=== PATIENT | male | born 1945 | race Caucasian/White ===

== ENCOUNTER → 2022-03-15 | Outpatient (REF) | payer MEDICARE, MEDICAID, SELFPAY ==
[2022-03-15 09:30] LABS: Hemoglobin A1c 4.8 % (3.8-5.6)
== END ==
LOC: OLS.SW 05:00
PROVIDERS: Visit Provider Internal Medicine
DX: E11.9 Type 2 diabetes mellitus without complications (principal)
CPT/HCPCS: 36415; 83036

== ENCOUNTER → 2022-03-20 | Outpatient (REF) | payer MEDICARE, MEDICAID, SELFPAY ==
[2022-03-20 10:23] LABS: Absolute Lymphocyte Count 1.12 X10^3/uL (0.83-4.51); Absolute Neutrophil Count 7.2 X10^3/uL (2.0-7.7); Basophil# 0.04 X10^3/uL; Basophil% 0.5 % (0-1); Eosinophil# 0.09 X10^3/uL; Hematocrit 32.3 % (40-54); Hemoglobin 10.8 g/dL (13.0-16.5); Lymphocyte # 1.12 X10^3/ul (0.83-4.51); Lymphocyte % 12.6 % (19-41); Mean Corp Hgb Conc 33.4 g/dL (32-36); Mean Corpuscular Hgb 31.3 pg (27.0-32.0); Mean Corpuscular Volume 93.6 fL (80-94); Mean Platelet Vol. 9.9 fl (6.2-12.0); Monocyte# 0.42 X10^3/uL; Monocyte% 4.7 % (0-10); NRBC Flagged by Analyzer 0 % (0-5); Neutrophil # 7.17 X10^3/uL (2.7-7.7); Neutrophil % 80.9 % (47-70); Platelet Count 158 K/mm3 (150-450); RBC Distribution Width CV 15.6 % (11.6-14.6); RBC Distribution Width SD 53.8 fl (35.1-43.9); Red Blood Count 3.45 M/mm3 (4.6-6.2); White Blood Count 8.9 K/mm3 (4.4-11.0)
[2022-03-20 11:07] LABS: Albumin, Serum 2.4 g/dL (3.2-5.0); BUN 38 mg/dL (7-18); BUN/Creat Ratio 4.9 RATIO (10-20); Calcium,Total 9.5 mg/dL (8.5-10.1); Chloride 97 mmol/L (98-107); Creatinine, Serum 7.78 mg/dL (0.70-1.30); EST Glomerular Filtration Rate 7 mL/min (>60); Glucose 80 mg/dL (74-106); Phosphorus 2.2 mg/dL (2.5-4.9); Potassium 2.8 mmol/L (3.5-5.1); Sodium Level 139 mmol/L (136-145)
[2022-03-20 11:08] LABS: Est Glom Filt Rate - Afr Amer 9 mL/min (>60)
== END ==
LOC: OLS.SW 05:00
PROVIDERS: Visit Provider Internal Medicine
DX: E11.22 Type 2 diabetes mellitus with diabetic chronic kidney disease (principal); N18.6 End stage renal disease
CPT/HCPCS: 36415; 80069; 85025

== ENCOUNTER → 2022-04-10 | Outpatient (REF) | payer MEDICARE, MEDICAID, SELFPAY ==
[2022-04-10 09:46] LABS: Anion Gap 17 (5-15); BUN 58 mg/dL (7-18); BUN/Creat Ratio 6.8 RATIO (10-20); Calcium,Total 9.7 mg/dL (8.5-10.1); Chloride 97 mmol/L (98-107); EST Glomerular Filtration Rate 7 mL/min (>60); Est Glom Filt Rate - Afr Amer 8 mL/min (>60); Glucose 73 mg/dL (74-106); Potassium 3.5 mmol/L (3.5-5.1); Prealbumin 18.7 mg/dL (20.0-40.0); Sodium Level 139 mmol/L (136-145)
[2022-04-10 09:53] LABS: Absolute Neutrophil Count 6.6 X10^3/uL (2.0-7.7); Basophil# 0.05 X10^3/uL; Basophil% 0.6 % (0-1); Eosinophil# 0.12 X10^3/uL; Eosinophils% 1.4 % (0-5); Hemoglobin 11.9 g/dL (13.0-16.5); Lymphocyte % 14.9 % (19-41); Mean Corp Hgb Conc 33.1 g/dL (32-36); Mean Corpuscular Hgb 30.9 pg (27.0-32.0); Mean Corpuscular Volume 93.5 fL (80-94); Mean Platelet Vol. 9.8 fl (6.2-12.0); Monocyte# 0.65 X10^3/uL; Monocyte% 7.4 % (0-10); NRBC Flagged by Analyzer 0 % (0-5); Neutrophil # 6.57 X10^3/uL (2.7-7.7); Neutrophil % 75.2 % (47-70); Platelet Count 174 K/mm3 (150-450); RBC Distribution Width CV 16.6 % (11.6-14.6); Red Blood Count 3.85 M/mm3 (4.6-6.2); White Blood Count 8.7 K/mm3 (4.4-11.0)
== END ==
LOC: OLS.SW 05:00
PROVIDERS: Visit Provider Internal Medicine
DX: L89.95 Pressure ulcer of unspecified site, unstageable (principal); R63.8 Other symptoms and signs concerning food and fluid intake; Z79.899 Other long term (current) drug therapy
CPT/HCPCS: 36415; 80048; 84134; 85025; 86140

== ENCOUNTER 2022-04-27 10:57 | Emergency (ER) | payer MEDICARE, MEDICAID, SELFPAY ==
[2022-04-27] VITALS (13 sets, daily range): BP systolic 83–168; BP diastolic 58–122; PULSE 90–102; RESP 16–24; TEMP 36.1–36.6; O2SAT 94–98; BMI 25.0
--- NOTE | 2022-04-27 11:34 | RAD_ITS ---
STUDY: X-RAY - PELVIS AND LEFT HIP REASON FOR EXAM: Male, 76 years old. pain TECHNIQUE: One view of the pelvis was obtained. COMPARISON: None. FINDINGS: There is a non-specific bowel gas pattern. Normal visualized soft tissue structures. Normal bilateral iliac wings, sacroiliac joints and visualized sacrum. Normal visualized bilateral superior and inferior pubic rami. Normal pubic symphysis. Normal ischial tuberosities. Normal visualized right femoral head. There is osteoarthritic spur formation of the right acetabular rim. There is moderate articular joint space narrowing of the right hip. Normal visualized left femoral head. There is osteoarthritic spur formation of the left acetabular rim. There is moderate articular joint space narrowing of the left hip. There are no visualized fractures of the pelvis or hips. RAD/HIP, UNI W/ Pelvis 2-3 Views IMPRESSION: Moderate bilateral hip DJD Electronically Signed: Preston Vicente MD at 13:20 EST ,
--- NOTE | 2022-04-27 11:37 | CM.ED ---
Addendum entered by My Jang 04/27/22 11:58: Per Sarah at [facility] patient's dialysis is M,W, F. She also reported that there is no date for emergency guardianship hearing at this time. My ALEGRIA Original Note: JAI called Sarah at [facility]. Sarah said that patient is not able to sign his own consent so they have filed for emergency guardianship for the patient. Sarah said that they are waiting for a court date. Sarah said that patient is a full code and they are providing patient with comfort care. Sarah said that they are working with their in home hospice, [facility], but as patient cannot sign the paperwork for hospice they have to wait till guardianship is received for patient. Sarah said that patient has no relatives except his sister, who has autism. Patient and his sister are from [facility]. JAI called [facility] and spoke to Sherri, patient's RN. Sherri said that by no means is patient alert or oriented but he has been more than he currently is. Sherri said that patient used to answer yes and no questions. Patient is only alert to self. Delusions are normal. Patient used to be able to follow simple commands. Sherri said that patient is not competent and thus they filed for emergency guardianship. Patient is a full code. Patient has been at [facility] since the fall 2021, so approximately 6 months. My ALEGRIA
--- NOTE | 2022-04-27 11:43 | EX.ED.DYSGE1 ---
HPI History of Present Illness Chief Complaint: Weakness Informant: EMS and SNF Narrative Narrative: Patient is a 76-year-old male presenting from extended care facility for generalized decline and concern the patient will require hospice. Patient has Parkinson's disease and is ANO times self at baseline. His only family member is a sister that has autism. The nursing facility is currently trying to get a court order for emergency custody to be can be evaluated for bernie. In the meantime he has had a generalized decline and was brought to the emergency room. Patient is complaining of some left-sided hip pain and does have a chronic wound on his left buttocks. He is really not able to tell me anything else besides he wants some water. Nursing staff reports that he is oriented to self only and has baseline delusions. He used to be able to follow some commands and answer things yes and no but this is worsened. Apparently patient is also on hemodialysis. Is not clear when his last dialysis it was at this point. 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 Unspecified protein-calorie malnutrition Unsteadiness on feet Home Medications acetaminophen 500 mg tablet (Acetaminophen Extra Strength) 1,000 mg PO MOWEFR DISCOMFORT PRIOR TO DIALYSIS 04/27/22 [History Last Taken 04/26/22] amino acids-protein hydrolysate 17 gram-100 kcal/30 mL oral liquid (Pro-Stat AWC) 30 ml PO BID SUPPLEMENT/WOUND CARE 04/27/22 [History Last Taken 04/27/22] ascorbic acid (vitamin C) 500 mg tablet 500 mg PO DAILY SUPPLEMENT 04/27/22 [History Last Taken 04/27/22] aspirin 325 mg tablet 325 mg PO MOWEFR [facility] 04/27/22 [History Last Taken 04/26/22] aspirin 81 mg tablet,delayed release 81 mg PO [facility] 04/27/22 [History Last Taken 04/27/22] atorvastatin 40 mg tablet 40 mg PO QHS CHOLESTEROL 04/27/22 [History Last Taken 04/26/22] cholecalciferol (vitamin D3) 50 mcg (2,000 unit) tablet (Vitamin D3) 50 mcg PO DAILY SUPPLEMENT 04/27/22 [History Last Taken 04/27/22] doxepin 50 mg capsule 50 mg PO QHS DEPRESSION 04/27/22 [History Last Taken 04/26/22] ferrous sulfate 325 mg (65 mg iron) tablet 325 mg PO DAILY SUPPLEMENT 04/27/22 [History Last Taken 04/27/22] insulin lispro 100 unit/mL subcutaneous solution (Humalog U-100 Insulin) See Protocol subcut TIDCM DIABETES 04/27/22 [History Last Taken 04/27/22] isosorbide mononitrate 30 mg tablet,extended release 24 hr 30 mg PO DAILY HEART 04/27/22 [History Last Taken 04/27/22] magnesium hydroxide 400 mg/5 mL oral suspension (Milk of Magnesia) 30 ml PO DAILY PRN Constipation 04/27/22 [History Last Taken Unknown] midodrine 10 mg tablet 10 mg PO MOWEFR DIALYSIS 04/27/22 [History Last Taken 04/26/22] midodrine 10 mg tablet 15 mg PO DAILY PRN DIALYSIS 04/27/22 [History Last Taken Unknown] mirtazapine 7.5 mg tablet 7.5 mg PO QHS APPETITE 04/27/22 [History Last Taken 04/26/22] nitroglycerin 0.4 mg sublingual tablet 0.4 mg sublingual Q5M PRN Chest Pain 04/27/22 [History Last Taken Unknown] omeprazole 20 mg capsule,delayed release 20 mg PO DAILY ACID REFLUX 04/27/22 [History Last Taken 04/27/22] oxybutynin chloride 5 mg tablet 5 mg PO BID OVERACTIVE BLADDER 04/27/22 [History Last Taken 04/27/22] potassium chloride 20 mEq tablet,extended release(part/cryst) 20 meq PO DAILY SUPPLEMENT 04/27/22 [History Last Taken 04/27/22] pramipexole 0.5 mg tablet 0.5 mg PO TID MUSCLE SPASMS 04/27/22 [History Last Taken 04/27/22] quetiapine 25 mg tablet 25 mg PO DAILY HALLUCINATIONS 04/27/22 [History Last Taken 04/27/22] quetiapine 50 mg tablet 50 mg PO QHS HALLUCINATIONS 04/27/22 [History Last Taken 04/26/22] sertraline 100 mg tablet 200 mg PO DAILY DEPRESSION 04/27/22 [History Last Taken 04/27/22] sodium hypochlorite 0.25 % solution (Dakin's Solution) 1 applic topical QHS WOUND 04/27/22 [History Last Taken 04/26/22] vitamin B complex and vitamin C no.20-folic acid 1 mg capsule (Triphrocaps) 1 cap PO LUNCH ESRD, TAKE AFTER DIALYSIS 04/27/22 [History Last Taken 04/27/22] Allergy/AdvReac Type Severity Reaction Status Date / Time amlodipine [From [facility]] Allergy PT UNSURE Verified 04/27/22 10:59 OF REACTION codeine Allergy PT UNSURE Verified 04/27/22 10:59 OF REACTION gemfibrozil Allergy PT UNSURE Verified 04/27/22 10:59 OF REACTION nifedipine Allergy PT UNSURE Verified 04/27/22 10:59 OF REACTION Social History Smoking Status: Unknown if ever smoked ROS ROS ED Review of Systems ROS Unobtainable: due to mental status EXAM Physical Exam Const Vital Signs: 04/27/22 10:59 04/27/22 11:15 04/27/22 13:11 Temperature 97.0 F L Temperature Source Temporal Pulse Rate 99 Respiratory Rate 24 H 16 Respiratory Pattern Normal Blood Pressure 168/122 H 88/58 L Blood Pressure Mean 137 68 Pulse Ox 95 95 Oxygen Delivery Method Room Air Room Air 04/27/22 13:13 04/27/22 14:02 04/27/22 14:18 Temperature 98 F 98 F Temperature Source Temporal Temporal Pulse Rate 90 102 H 101 H Respiratory Rate 20 H 18 18 Respiratory Pattern Blood Pressure 83/58 L 98/65 102/67 Blood Pressure Mean 66 76 78 Pulse Ox 94 95 96 Oxygen Delivery Method Room Air Room Air 04/27/22 14:33 04/27/22 14:48 04/27/22 15:03 Temperature 98 F 98 F 98 F Temperature Source Temporal Temporal Temporal Pulse Rate 101 H 98 99 Respiratory Rate 20 H 20 H 18 Respiratory Pattern Blood Pressure 104/70 95/73 95/65 Blood Pressure Mean 81 80 75 Pulse Ox 96 97 98 Oxygen Delivery Method Room Air Positive unkempt Constitutional Narrative: Chronically ill-appearing General Appearance ED: unkempt and pallor HEENT Reports dry mucous membranes Negative for trauma Mouth ED: Yes dry mucous membranes Mouth: dry mucous membranes Eyes PERRL Neck supple and no JVD Chest Wall inspection of chest normal and palpation of chest normal Resp normal respiratory effort and clear to auscultation bilaterally Cardio regular rate and regular rhythm GI normal to inspection, nondistended, normoactive bowel sounds Extremity Extremity Narrative: Contractures of the lower extremities AV fistula in the left forearm with palpable thrill Neuro Neuro Narrative: Somnolent but arouses when he walked in the room. Generally weak. Oriented to self only. Sensorium / Orientation: alert Psych Appearance: unkempt Skin Skin Narrative: Chronic sacral decubitus wound. It is covered in stool. General Skin Exam: pallor Sepsis Attestation Sepsis Alert: Yes Sepsis Attestation: Sepsis Ruled Out Date exam was performed: 04/27/22 Time exam was performed: 14:43 Supportive Findings: Patient is dehydrated likely which is what is causing his lactic acidosis and hypotension. No obvious source of infection. MDM MDM MDM Narrative Medical decision making narrative: Patient is evaluated for generalized decline and low blood pressures. Patient is confused which appears to be his baseline. He is tachycardic and clinically appears quite dehydrated Differential includes electrolyte abnormality, dehydration, sepsis and generalized debility. Case is discussed with social work. Patient's facility, [facility], is attempting to get legal control so patient can be changed from full code to hospice as they feel that is what is medically appropriate however there is delay in this. Septic work-up is initiated as patient was reported to have low blood pressures initially he is hypertensive. He is tachycardic. He has a normal white blood cell counts and a mild anemia the hemoglobin 11.6. He has elevated BUN and creatinine which is consistent with his history of end-stage renal disease. He is mildly hypokalemic with potassium of 3.0 however given that he is end-stage renal disease on hemodialysis I will not replace at this time. His lactate is elevated for 2.5 however I suspect this is from dehydration. Case is discussed with admitting physician, Dr. Nova who evaluates the patient. She agrees that he is dehydrated. Patient was initially just given a 250 cc bolus as he did start to become hypotensive. He was fluid responsive with this. She requested he be given additional 750 cc of fluid. She also spoke with the patient's primary care doctor, Dr. Harrison, who is aware that they can do IV fluids at facility. She spoke with Dr. Sexton, his subsorter who is a comfortable with giving the patient a second liter bolus. They will work on adjusting his dry weight. Blood cultures are pending but there is no obvious source of infection at this time. He has a chronic wound but is not look infected. He does not have a leukocytosis or fever. Plan is to increase patient's hydration as he is not taking much by mouth at facility and he will be discharged back with IV in place. In addition they will continue to work on obtaining legal guardianship of the patient in order to make him hospice. As patient does not have an acute electrolyte abnormality, is fluid responsive he does not require acute hospitalization. Patient will have dialysis tomorrow. Should he develop acute hypoxia, fever or other acute symptoms he will be brought back to the emergency room at that time. Lab Data Attestation: I reviewed the patient's lab results. Labs: Laboratory Results - last 24 hr 04/27/22 04/27/22 04/27/22 12:05 12:05 12:05 WBC 7.7 RBC 3.78 L Hgb 11.6 L Hct 35.3 L MCV 93.4 MCH 30.7 MCHC 32.9 RDW Std Deviation 55.6 H RDW Coeff of Mallorie 16.1 H Plt Count 140 L MPV 9.5 Immature Gran % (Auto) 0.600 Neut % (Auto) 87.6 H Lymph % (Auto) 5.3 L Nolan % (Auto) 6.3 Eos % (Auto) 0.1 Baso % (Auto) 0.1 Absolute Neuts (auto) 6.8 Absolute Lymphs (auto) 0.41 L Nucleated RBC % 0 Differential Comment COMMENT Sodium 137 Potassium 3.0 L Chloride 95 L Carbon Dioxide 32.0 Anion Gap 10 BUN 35 H Creatinine 5.04 H Estim Creat Clear Calc 13.90 Est GFR (MDRD) Af Amer 15 L Est GFR (MDRD) Non-Af 12 L BUN/Creatinine Ratio 6.9 L Glucose 140 H Lactic Acid 2.5 H* Calcium 9.4 Total Bilirubin 1.10 H AST 79 H ALT 59 Alkaline Phosphatase 133 H Total Protein 6.0 L Albumin 1.6 L Globulin 4.4 H Albumin/Globulin Ratio 0.4 L Radiography Chest X-Ray - ED: 1 View, Read by ED Physician and Chronic Changes Diagnostic Testing: Clinical Impression(s) from Imaging Studies Hip/Pelvis X-Ray 04/27/22 11:34 IMPRESSION: Moderate bilateral hip DJD Electronically Signed: Preston Vicente MD at 13:20 EST Reading Location ID and State: [address] [place] [address] , Service support , Rhythm Strip Rhythm Strip: Sinus Tach Rate: 108 Ectopy: None EKG Initial EKG: Attestation: I personally reviewed and interpreted this EKG as follows: Interpretation: Sinus Tachycardia Comments: Sinus tachycardia at a rate of 108 bpm Normal axis normal intervals Nonspecific T wave changes Significant baseline artifact present Discharge Plan Triage Chief Complaint: Weakness ED Provider: Luna Harmon Dx/Rx/DC Orders Clinical Impression: Acute dehydration, Debility, Adult failure to thrive Instructions: ED Dehydration (Adult), ED Weakness (Uncertain Cause) Prescriptions: No Action quetiapine 25 mg tablet 25 mg PO DAILY atorvastatin 40 mg tablet 40 mg PO QHS doxepin 50 mg capsule 50 mg PO QHS aspirin 325 mg Tablet 325 mg PO MOWEFR isosorbide mononitrate 30 mg tablet extended release 24 hr 30 mg PO DAILY sertraline 100 mg tablet 200 mg PO DAILY aspirin [Aspirin Low-Strength] 81 mg Tablet,Delayed Release (Dr/Ec) 81 mg PO [facility] acetaminophen [Acetaminophen Extra Strength] 500 mg Tablet 1,000 mg PO MOWEFR pramipexole 0.5 mg tablet 0.5 mg PO TID potassium chloride 20 mEq tablet,ER particles/crystals 20 meq PO DAILY magnesium hydroxide [Milk of Magnesia] 400 mg/5 mL Suspension 30 ml PO DAILY PRN (Reason: Constipation) ascorbic acid (vitamin C) 500 mg Tablet 500 mg PO DAILY ferrous sulfate 325 mg (65 mg iron) Tablet 325 mg PO DAILY nitroglycerin 0.4 mg Tablet, Sublingual 0.4 mg SUBLINGUAL Q5M PRN (Reason: Chest Pain) omeprazole 20 mg capsule,delayed release(DR/EC) 20 mg PO DAILY insulin lispro [Humalog U-100 Insulin] 100 unit/mL Solution See Protocol subcut TIDCM Protocol: 6. Sliding Scale Insulin Custom Condition: mg/dl range Dose/Route: Number of Units Condition: 180-200 Dose/Route: 2 Condition: 201-250 Dose/Route: 3 Condition: 251-300 Dose/Route: 4 Condition: 301-350 Dose/Route: 5 Condition: 351-400 Dose/Route: 6 Condition: 401-450 Dose/Route: 7 Condition: 450> Instruction: CALL DOCTOR Protocol Text: Custom Sliding Scale Triphrocaps 1 mg Capsule 1 cap PO LUNCH oxybutynin chloride 5 mg tablet 5 mg PO BID Dakin's Solution 0.25 % Solution 1 applic TOPICAL QHS midodrine 10 mg Tablet 10 mg PO MOWEFR midodrine 10 mg Tablet 15 mg PO DAILY PRN (Reason: DIALYSIS) mirtazapine 7.5 mg tablet 7.5 mg PO QHS quetiapine 50 mg tablet 50 mg PO QHS cholecalciferol (vitamin D3) [Vitamin D3] 50 mcg (2,000 unit) Tablet 50 mcg PO DAILY Pro-Stat AWC 17-100 gram-kcal/30 mL Liquid 30 ml PO BID Primary Care Provider: Linda Harrison Referrals: NOT,DEFINED [Non-Staff] - Activity Restrictions/Additional Instructions: Iam was discharged with IV in place to be can receive further IV fluids as needed. Disposition Disposition: [facility] Facility Discharge Location: [facility]
[2022-04-27] MEDS: fentaNYL 100 MCG/2 ML Ampul 25 MCG IV (12:15)
[2022-04-27 12:22] LABS: Absolute Lymphocyte Count 0.41 X10^3/uL (0.83-4.51); Absolute Neutrophil Count 6.8 X10^3/uL (2.0-7.7); Basophil# 0.01 X10^3/uL; Basophil% 0.1 % (0-1); Eosinophil# 0.01 X10^3/uL; Eosinophils% 0.1 % (0-5); Hematocrit 35.3 % (40-54); Hemoglobin 11.6 g/dL (13.0-16.5); Lymphocyte # 0.41 X10^3/ul (0.83-4.51); Lymphocyte % 5.3 % (19-41); Mean Corp Hgb Conc 32.9 g/dL (32-36); Mean Corpuscular Hgb 30.7 pg (27.0-32.0); Mean Corpuscular Volume 93.4 fL (80-94); Mean Platelet Vol. 9.5 fl (6.2-12.0); Monocyte# 0.49 X10^3/uL; Monocyte% 6.3 % (0-10); NRBC Flagged by Analyzer 0 % (0-5); Neutrophil # 6.75 X10^3/uL (2.7-7.7); Neutrophil % 87.6 % (47-70); POSITIVE DIFFERENTIAL YES; POSITIVE MORPHOLOGY YES; Platelet Count 140 K/mm3 (150-450); RBC Distribution Width CV 16.1 % (11.6-14.6); RBC Distribution Width SD 55.6 fl (35.1-43.9); Red Blood Count 3.78 M/mm3 (4.6-6.2); White Blood Count 7.7 K/mm3 (4.4-11.0)
[2022-04-27 12:25] LABS: Differential Indicated SCAN CRITERIA MET
[2022-04-27 12:39] LABS: ALB/GLOB Ratio 0.4 RATIO (0.9-2.4); AST(SGOT) 79 U/L (15-37); Alanine Aminotransfer ALT/SGPT 59 U/L (16-61); Albumin, Serum 1.6 g/dL (3.2-5.0); Alkaline Phosphatase 133 U/L (45-117); Anion Gap 10 (5-15); BUN 35 mg/dL (7-18); BUN/Creat Ratio 6.9 RATIO (10-20); Calcium,Total 9.4 mg/dL (8.5-10.1); Chloride 95 mmol/L (98-107); Creatinine, Serum 5.04 mg/dL (0.70-1.30); EST Glomerular Filtration Rate 12 mL/min (>60); Est Glom Filt Rate - Afr Amer 15 mL/min (>60); Globulin 4.4 g/dL (2.2-4.2); Glucose 140 mg/dL (74-106); Sodium Level 137 mmol/L (136-145)
--- NOTE | 2022-04-27 12:40 | RAD_ITS ---
STUDY: X-RAY CHEST REASON FOR EXAM: Male, 76 years old. Weakness TECHNIQUE: Single AP portable view of the chest. COMPARISON: Comparison is made with prior examination dated 04/29/2022. FINDINGS: An endotracheal tube is in situ. The tip is at 5.1 sinus proximal to luis enrique. Nasogastric tube is seen with the tip in the body of the stomach. A left-sided internal jugular venous catheter has been placed. The tip is at the junction of the left brachiocephalic vein and inferior vena cava. A right-sided central line is placed with the tip in the right atrium. These are unchanged. Persistent infiltrates in both upper lobes worse on the right side. Patchy infiltrate in the right lower lobe. Improved aeration at the left lung base. Blunting of the right costophrenic angle. Normal size heart. Normal mediastinum and kelli. Normal visualized pulmonary arteries. There is atherosclerotic tortuosity of the aortic arch and descending thoracic aorta. There are diffuse degenerative changes of the visualized thoracic spine. Normal visualized ribs, clavicles, and shoulders. There is no demonstrated abnormality of the visualized soft tissue structures of the upper abdomen. RAD/Chest 1 View (Portable) IMPRESSION: The tip of the endotracheal tube is at 5.1 cm proximal to the luis enrique. The tip of the nasogastric tube is in the body of the stomach. Persistent infiltrates in both upper lobes worse on the right side with patchy right basilar infiltrate. Electronically Signed: Jace Crawford MD at 8:43 EST ,
--- NOTE | 2022-04-27 13:18 | ED.RN ---
ED PHYSICIAN AWARE OF SEPSIS ALERT. PT NOT A CANDIDATE FOR FLUID RESUSCITATION BASED ON DIALYSIS
[2022-04-27 13:25] LABS: Lactic Acid 2.5 mmol/L (0.4-1.9)
[2022-04-27] MEDS: 0.9% Normal Saline 1,000 ML 750 ML IV (14:48)
[2022-04-27] MEDS: 0.9% Normal Saline 1,000 ML 999 ML IV (16:11)
[2022-04-27 16:15] LABS: Reflex Lactate? Y
== END 2022-04-27 18:00 | disposition skilled nursing facility (03) ==
PROVIDERS: Emergency Provider Emergency Medicine; PCP Internal Medicine; Visit Provider Emergency Medicine
DX: E86.0 Dehydration (principal); I13.2 Hypertensive heart and chronic kidney disease with heart failure and with stage 5 chronic kidney disease, or end stage renal disease; G20 Parkinson's disease; Z99.2 Dependence on renal dialysis; I50.9 Heart failure, unspecified; E11.22 Type 2 diabetes mellitus with diabetic chronic kidney disease; N18.6 End stage renal disease; M25.552 Pain in left hip; I25.10 Atherosclerotic heart disease of native coronary artery without angina pectoris; R53.81 Other malaise; D64.9 Anemia, unspecified; R62.7 Adult failure to thrive; R41.0 Disorientation, unspecified; E78.5 Hyperlipidemia, unspecified
CPT/HCPCS: 96374; 96361; 99285; 71045; 73502; 80053; 82274; 83605; 85025; 87040; 87149; 93005; J7030; J7050; A4216

== ENCOUNTER 2022-04-28 10:33 | Inpatient (IN) | payer MEDICARE, MEDICAID, SELFPAY ==
[2022-04-28] VITALS (19 sets, daily range): BP systolic 64–139; BP diastolic 24–125; PULSE 66–102; RESP 14–26; TEMP 36.1–37.2; O2SAT 2–100; BMI 20.3; BMI 20.1
--- NOTE | 2022-04-28 10:58 | EKG12_ITS ---
Test Reason : GENERAL Blood Pressure : / mmHG Vent. Rate : 092 BPM Atrial Rate : 092 BPM P-R Int : 192 ms QRS Dur : 090 ms QT Int : 322 ms P-R-T Axes : 036 -17 086 degrees QTc Int : 398 ms Normal sinus rhythm Low voltage QRS Nonspecific T wave abnormality Abnormal ECG Confirmed by ALEENA MARINO, RONNA ([id number]), photograph editor ARMEN RODRIGUEZ ([id number]) on 05/01/2022 1:44:20 PM Referred By: Confirmed By:RONNA FLOOD MD
[2022-04-28 11:19] LABS: Absolute Lymphocyte Count 0.44 X10^3/uL (0.83-4.51); Absolute Neutrophil Count 6.2 X10^3/uL (2.0-7.7); Basophil# 0.01 X10^3/uL; Basophil% 0.1 % (0-1); Eosinophil# 0.05 X10^3/uL; Eosinophils% 0.7 % (0-5); Hematocrit 33.6 % (40-54); Hemoglobin 10.8 g/dL (13.0-16.5); Lymphocyte # 0.44 X10^3/ul (0.83-4.51); Lymphocyte % 6.1 % (19-41); Mean Corp Hgb Conc 32.1 g/dL (32-36); Mean Corpuscular Hgb 30.3 pg (27.0-32.0); Mean Corpuscular Volume 94.4 fL (80-94); Mean Platelet Vol. 9.6 fl (6.2-12.0); Monocyte% 5.6 % (0-10); NRBC Flagged by Analyzer 0 % (0-5); Neutrophil # 6.24 X10^3/uL (2.7-7.7); Neutrophil % 86.9 % (47-70); POSITIVE DIFFERENTIAL YES; Platelet Count 111 K/mm3 (150-450); RBC Distribution Width CV 16.5 % (11.6-14.6); RBC Distribution Width SD 57.1 fl (35.1-43.9); Red Blood Count 3.56 M/mm3 (4.6-6.2); White Blood Count 7.2 K/mm3 (4.4-11.0)
[2022-04-28 11:23] LABS: Differential Indicated SCAN CRITERIA MET
--- NOTE | 2022-04-28 11:34 | EX.ED.CRITCA ---
HPI History of Present Illness Chief Complaint: Other, Pain/Inj Detail of Chief Complaint: Low blood sugar, altered mental status and fistula stopped working Informant: EMS and other Onset/Context/Timing Onset: Today Context: Sudden Onset Timing: Continuous Quality: Fistula not functioning and altered mental status Location: Not applicable Mechanism/Context: Yes other Current Severity: Severe Maximum Severity: Severe Worsened by: Unknown Relieved by: Unknown Associated Symptoms Associated Symptoms: other (Unknown) Length of loss of consciousness: Unknown Narrative Narrative: Patient is a 76-year-old male who was seen yesterday. Patient had chief complaint yesterday of weakness. Patient's case was discussed with admitting physician. The ER physician and hospitalist felt the patient was dehydrated. The hospitalist spoke with patient's primary care physician.. Because they were able to do fluids at the facility he was discharged to home. He apparently has a chronic wound but is not infected. Apparently his legal guardian does not have capacity to make decision regarding hospice care etc. I have been told patient is full go. Presently patient has altered mental status hypotensive with systolic of 79. He does not appear well. He appears pale. He has food particles stuck to his teeth and posterior pharynx. Unable to obtain a history. 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 04/27/22 [History Last Taken 04/27/22] atorvastatin 40 mg tablet 40 mg PO QHS CHOLESTEROL 04/27/22 [History Last Taken 04/27/22] cholecalciferol (vitamin D3) 50 mcg (2,000 unit) tablet (Vitamin D3) 50 mcg PO DAILY SUPPLEMENT 04/27/22 [History Last Taken 04/27/22] doxepin 50 mg capsule 50 mg PO QHS DEPRESSION 04/27/22 [History Last Taken 04/27/22] ferrous sulfate 325 mg (65 mg iron) tablet 325 mg PO DAILY SUPPLEMENT 04/27/22 [History Last Taken 04/27/22] insulin lispro 100 unit/mL subcutaneous solution (Humalog U-100 Insulin) See Protocol subcut TIDCM DIABETES 04/27/22 [History Last Taken 04/28/22] isosorbide mononitrate 30 mg tablet,extended release 24 hr 30 mg PO DAILY HEART 04/27/22 [History Last Taken 04/27/22] magnesium hydroxide 400 mg/5 mL oral suspension (Milk of Magnesia) 30 ml PO DAILY PRN Constipation 04/27/22 [History Last Taken Unknown] midodrine 10 mg tablet 10 mg PO MOWEFR DIALYSIS 04/27/22 [History Last Taken 04/26/22] mirtazapine 7.5 mg tablet 7.5 mg PO QHS APPETITE 04/27/22 [History Last Taken 04/27/22] nitroglycerin 0.4 mg sublingual tablet 0.4 mg sublingual Q5M PRN Chest Pain 04/27/22 [History Last Taken Unknown] omeprazole 20 mg capsule,delayed release 20 mg PO DAILY ACID REFLUX 04/27/22 [History Last Taken 04/27/22] oxybutynin chloride 5 mg tablet 5 mg PO BID OVERACTIVE BLADDER 04/27/22 [History Last Taken 04/27/22] potassium chloride 20 mEq tablet,extended release(part/cryst) 20 meq PO DAILY SUPPLEMENT 04/27/22 [History Last Taken 04/27/22] pramipexole 0.5 mg tablet 0.5 mg PO TID MUSCLE SPASMS 04/27/22 [History Last Taken 04/27/22] quetiapine 25 mg tablet 25 mg PO DAILY HALLUCINATIONS 04/27/22 [History Last Taken 04/27/22] quetiapine 50 mg tablet 50 mg PO QHS HALLUCINATIONS 04/27/22 [History Last Taken 04/27/22] sertraline 100 mg tablet 200 mg PO DAILY DEPRESSION 04/27/22 [History Last Taken 04/27/22] sodium hypochlorite 0.25 % solution (Dakin's Solution) 1 applic topical QHS WOUND 04/27/22 [History Last Taken 04/27/22] vitamin B complex and vitamin C no.20-folic acid 1 mg capsule (Triphrocaps) 1 cap PO LUNCH ESRD, TAKE AFTER DIALYSIS 04/27/22 [History Last Taken 04/27/22] Allergy/AdvReac Type Severity Reaction Status Date / Time amlodipine [From [facility]] Allergy PT UNSURE Verified 04/27/22 10:59 OF REACTION codeine Allergy PT UNSURE Verified 04/27/22 10:59 OF REACTION gemfibrozil Allergy PT UNSURE Verified 04/27/22 10:59 OF REACTION nifedipine Allergy PT UNSURE Verified 04/27/22 10:59 OF REACTION Social History (Updated 04/28/22 @ 11:[address] Glenn Merchant MD) household members: none housing: other Smoking Status: Unknown if ever smoked ROS ROS ED Review of Systems ROS Unobtainable: due to mental status EXAM Physical Exam Const Vital Signs: 04/28/22 10:33 04/28/22 10:36 04/28/22 10:37 Temperature 98.8 F 97.8 F Temperature Source Temporal Temporal Pulse Rate 66 66 Respiratory Rate 15 14 Respiratory Effort Normal Respiratory Pattern Bradypnea Blood Pressure 96/78 96/76 Blood Pressure Mean 84 82 Pulse Ox 92 2 Oxygen Delivery Method Nasal Cannula Nasal Cannula Oxygen Flow Rate (L/min) 2 2 04/28/22 10:53 04/28/22 10:53 Temperature Temperature Source Pulse Rate Respiratory Rate Respiratory Effort Respiratory Pattern Blood Pressure Blood Pressure Mean Pulse Ox 45 95 Oxygen Delivery Method Nasal Cannula Non-Rebreather Oxygen Flow Rate (L/min) 2 15 Positive well nourished and well developed Constitutional Narrative: Patient is pale. He has bruises. He has food that is adherent to his teeth and in his mouth. The food particles from his mouth was cleared by me. General Appearance ED: well developed and pallor HEENT HEENT Narrative: Patient has dry mucosa. Ears normal. Nares patent. normocephalic and atraumatic; Negative for trauma or cyanosis of lips/distal nose Eyes PERRL Eyes Narrative: Sclera is nonicteric. Conjunctive is pale. No drainage. Neck no lymphadenopathy and supple Chest Wall Chest Narrative: Patient has abnormal respiratory sounds bilaterally. Breath sounds are diminished. Patient is presently on a nonrebreather since he had a pulse ox reading of 40. Resp Resp Narrative: Respiratory effort is not normal. Cardio regular rate, regular rhythm, S1 normal heart sound, S2 normal heart sound and no murmurs GI non-distended and no masses GI Narrative: Unable to determine if patient has abdominal tenderness. He appears to grimace to deep palpation. Palpation: soft Narrative: Normal external genitalia. Back/Spine Back/Spine Narrative: Unable to determine because of altered mental status Extremity Extremity Narrative: There is no thrill or bruit noted over the left forearm fistula. This would indicate that it is nonfunctioning. Neuro No oriented x3 Sensorium / Orientation: Negative for alert Speech: Negative for speech normal Gait (Neuro): Negative for normal gait Psych Negative for mental status grossly normal Skin Skin Narrative: Patient has bruising to the torso. General Skin Exam: pallor Sepsis Attestation Sepsis Organ Dysfunction Criteria Present: SBP < 90 mmHg or MAP < 65 mmHg Fluid Resuscitation Fluid resuscitation indicated?: Yes Fluid Resuscitation ordered: Lesser volume fluid bolus ordered (Patient responded to 500 cc bolus. Patient did not have complete dialysis.) Reason for lesser fluid bolus:: Concern for fluid overload, Heart failure, Renal Failure and BP Responded to a lesser volume MDM MDM MDM Narrative Medical decision making narrative: Patient appears significantly dehydrated. Patient appears pale. Concern patient may have aspirated. Metabolic infectious work-up was undertaken. Patient presently is full go. Patient does not have capacity to tell me his wishes. From what I was told by staff his living relative does not have capacity either. Patient in all likelihood will need a court appointed floater operator. Since patient was hypotensive he did receive a 500 cc bolus. His blood pressure did improve. Lab Data Attestation: I reviewed the patient's lab results. Lab results narrative: White count is normal. There is a shift. Patient's hemoglobin is 10.8 with hematocrit of 33.6. This is baseline. Suspect this will drop once patient is hydrated. Labs: Laboratory Results - last 24 hr 04/28/22 04/28/22 04/28/22 11:03 11:03 11:03 WBC 7.2 RBC 3.56 L Hgb 10.8 L Hct 33.6 L MCV 94.4 H MCH 30.3 MCHC 32.1 RDW Std Deviation 57.1 H RDW Coeff of Mallorie 16.5 H Plt Count 111 L MPV 9.6 Immature Gran % (Auto) 0.600 Neut % (Auto) 86.9 H Lymph % (Auto) 6.1 L [place] % (Auto) 5.6 Eos % (Auto) 0.7 Baso % (Auto) 0.1 Absolute Neuts (auto) 6.2 Absolute Lymphs (auto) 0.44 L Nucleated RBC % 0 Differential Comment SCANNED Sodium 141 Potassium 3.0 L Chloride 104 Carbon Dioxide 25.0 Anion Gap 12 BUN 42 H Creatinine 5.41 H Estim Creat Clear Calc 11.35 Est GFR (MDRD) Af Amer 13 L Est GFR (MDRD) Non-Af 11 L BUN/Creatinine Ratio 7.8 L Glucose 101 Lactic Acid 2.0 Calcium 8.7 Total Bilirubin 1.00 AST 58 H ALT 46 Alkaline Phosphatase 114 Total Protein 5.3 L Albumin 1.4 L Globulin 3.9 Albumin/Globulin Ratio 0.4 L ABG Data ABG results: ABG 04/28/22 11:35 Specimen Type ASHLY VBG pH 7.35 VBG pO2 32 VBG HCO3 24 VBG Total CO2 26 VBG O2 Sat (Calc) 59 VBG Base Excess -1 POC Mix VBG pCO2 Pt Tmp 43.4 O2 Delivery Device NRB Radiography Chest X-Ray - ED: 1 View and Read by ED Physician (Patient has a new infiltrate on the right that was not noted yesterday. Suspect patient aspirated. We will treat with Zosyn and vancomycin.) Diagnostic Testing: Clinical Impression(s) from Imaging Studies Chest X-Ray 04/28/22 11:35 IMPRESSION: Increased opacities in the mid to lower lungs bilaterally concerning for pneumonia or pneumonitis. Electronically Signed: Barbara Gomez MD at 11:48 EST , Rhythm Strip Rhythm Strip: Sinus Tach Rate: 102 Ectopy: PVC(s) EKG Initial EKG: Attestation: I personally reviewed and interpreted this EKG as follows: Interpretation: Sinus Rhythm (Rate is 92. Voltage is low. W[place] interval is 192 ms per cures duration 90 ms. QT durations 122 ms. [place] is normal. There is artifact which computer is reading is nonspecific T wave abnormality.) Critical Care Time Critical Care Time: Yes Critical care time (excluding procedures): 30-74 minutes (32 minutes), Including time spent: (History, physical, documentation, review of prior records, review of outside records), Discussing w/Consultants and Arranging Admission or Transfer Discharge Plan Triage Chief Complaint: Other, Pain/Inj ED Provider: Glenn Merchant Dx/Rx/DC Orders Clinical Impression: Aspiration into respiratory tract, Acute hypotension, Arteriovenous fistula occlusion, Acute encephalopathy, Acute respiratory failure with hypoxia, End stage renal failure on dialysis Prescriptions: No Action quetiapine 25 mg tablet 25 mg PO DAILY atorvastatin 40 mg tablet 40 mg PO QHS doxepin 50 mg capsule 50 mg PO QHS aspirin 325 mg Tablet 325 mg PO MOWEFR isosorbide mononitrate 30 mg tablet extended release 24 hr 30 mg PO DAILY sertraline 100 mg tablet 200 mg PO DAILY aspirin [Aspirin Low-Strength] 81 mg Tablet,Delayed Release (Dr/Ec) 81 mg PO [place] acetaminophen [Acetaminophen Extra Strength] 500 mg Tablet 1,000 mg PO MOWEFR pramipexole 0.5 mg tablet 0.5 mg PO TID potassium chloride 20 mEq tablet,ER particles/crystals 20 meq PO DAILY magnesium hydroxide [Milk of Magnesia] 400 mg/5 mL Suspension 30 ml PO DAILY PRN (Reason: Constipation) ascorbic acid (vitamin C) 500 mg Tablet 500 mg PO DAILY ferrous sulfate 325 mg (65 mg iron) Tablet 325 mg PO DAILY nitroglycerin 0.4 mg Tablet, Sublingual 0.4 mg SUBLINGUAL Q5M PRN (Reason: Chest Pain) omeprazole 20 mg capsule,delayed release(DR/EC) 20 mg PO DAILY insulin lispro [Humalog U-100 Insulin] 100 unit/mL Solution See Protocol subcut TIDCM Protocol: 6. Sliding Scale Insulin Custom Condition: mg/dl range Dose/Route: Number of Units Condition: 180-200 Dose/Route: 2 Condition: 201-250 Dose/Route: 3 Condition: 251-300 Dose/Route: 4 Condition: 301-350 Dose/Route: 5 Condition: 351-400 Dose/Route: 6 Condition: 401-450 Dose/Route: 7 Condition: 450> Instruction: CALL DOCTOR Protocol Text: Custom Sliding Scale Triphrocaps 1 mg Capsule 1 cap PO LUNCH oxybutynin chloride 5 mg tablet 5 mg PO BID Dakin's Solution 0.25 % Solution 1 applic TOPICAL QHS midodrine 10 mg Tablet 10 mg PO MOWEFR mirtazapine 7.5 mg tablet 7.5 mg PO QHS quetiapine 50 mg tablet 50 mg PO QHS cholecalciferol (vitamin D3) [Vitamin D3] 50 mcg (2,000 unit) Tablet 50 mcg PO DAILY Primary Care Provider: Linda Harrison Referrals: Linda Harrison MD [Primary Care Provider] - Disposition Disposition: [facility] Capacity Capacity Assessment Tool Can the patient make a choice & communicate that choice?: No Can the patient understand benefits, risks and alternatives?: No Can the patient make a logical, rational choice?: No Is the choice the patient makes consistent w/ their values?: Unable to Determine Is there an impending, emergent risk to the patient?: Yes Does the patient have an Advance Directive?: No Is there a Surrogate Available?: No i.e. HCPOA: No i.e. close relative (spouse, child, parent, sibling)?: No
[2022-04-28 11:35] LABS: ALB/GLOB Ratio 0.4 RATIO (0.9-2.4); AST(SGOT) 58 U/L (15-37); Alanine Aminotransfer ALT/SGPT 46 U/L (16-61); Albumin, Serum 1.4 g/dL (3.2-5.0); Alkaline Phosphatase 114 U/L (45-117); Anion Gap 12 (5-15); BUN 42 mg/dL (7-18); BUN/Creat Ratio 7.8 RATIO (10-20); Calcium,Total 8.7 mg/dL (8.5-10.1); Chloride 104 mmol/L (98-107); Creatinine, Serum 5.41 mg/dL (0.70-1.30); EST Glomerular Filtration Rate 11 mL/min (>60); Est Glom Filt Rate - Afr Amer 13 mL/min (>60); Estimated Creatinine Clearance 11.35 ml/min; Globulin 3.9 g/dL (2.2-4.2); Glucose 101 mg/dL (74-106); Protein, Total 5.3 g/dL (6.4-8.2); Sodium Level 141 mmol/L (136-145)
--- NOTE | 2022-04-28 11:35 | RAD_ITS ---
HISTORY: Hypoxia, concern for aspiration. TECHNIQUE: XR Chest 1 View. COMPARISON: Prior day. FINDINGS: LINES/TUBES: None. CARDIOMEDIASTINAL BORDERS: Stable. LUNGS: Increased opacities in the mid to lower lungs bilaterally. PLEURA: Mild right pleural effusion again noted. RAD/Chest 1 View (Portable) IMPRESSION: Increased opacities in the mid to lower lungs bilaterally concerning for pneumonia or pneumonitis. Electronically Signed: Barbara Gomez MD at 11:48 EST ,
[2022-04-28 11:40] LABS: Blood Gas Specimen Type VEN; O2 Delivery Device NRB; VBG BASE EXCESS -1 mmol/L (-1.0-3.5); VBG Bicarbonate 24 mmol/L (22-26); VBG PO2 32 mmHg (25-40); VBG SO2 59 % (50-70); VBG TCO2 26 mmol/L (23-33); VBG pCO2 43.4 mmHg (41-51); VBG pH 7.35 (7.32-7.42)
[2022-04-28 11:47] LABS: Differential Comment SCANNED
--- NOTE | 2022-04-28 13:21 | NURSING ---
Dailysys patient - 1 L fluids given
--- NOTE | 2022-04-28 13:51 | CASEMGMT ---
SW is aware of patient. Patient is from [facility]. ED SW worked on patient yesterday 2-16 when in the ED. Per ED SW note [facility] is working on emergency guardianship for patient, but no court date yet. Patient has a sister, who has autism. [facility] will follow. Cyndee RILEY
[2022-04-28] MEDS: 0.9% Normal Saline 1,000 ML 500 ML IV (14:24)
--- NOTE | 2022-04-28 14:25 | ED.RN ---
2nd liter of fluids started
[2022-04-28 15:13] LABS: Reflex Lactate? Y
--- NOTE | 2022-04-28 15:22 | CASEMGMT ---
[facility] called [facility] and spoke with Erica in [employer]. They applied for emergency guardianship for patient in [facility] as this is where patient is from. [facility] called [facility] and there is nothing they can do as patient is not active with them. [facility] contacted [facility]ctive [facility] and was told that patient is not in their county so there is nothing they can do. They would not even confirm they were involved in this case. Cyndee Dejesus DRIER [place]
--- NOTE | 2022-04-28 16:41 | CON.PCM.CC_ITS ---
Assessment & Plan Assessment/Plan (1) Adult failure to thrive: (2) Arteriovenous fistula occlusion: (3) Acute respiratory failure with hypoxia: (4) End stage renal failure on dialysis: PLAN: Plan RECOMMENDATIONS: 1. Continue with empiric antibiotics 2. Add midodrine therapy 3. Bolused with 1 L of LR 4. Consult nephrology for dialysis 5. Possible need for PICC 6. Obtain chest x-ray for possible complications of failed line 7. Peripheral Levophed if necessary IMPRESSIONS: 1. Hypotension Unclear etiology. Patient appears to be very volume depleted. Sepsis cannot be excluded. Agree with empiric antibiotics for now. We will add midodrine therapy. Patient will given an additional bolus, but cannot exclude the need for peripheral Levophed. Attempts at a line of been unsuccessful. We will obtain a chest x-ray to evaluate for complications of central line attempt. Patient is not currently taking steroids, but cannot exclude the need for stress dose steroids moving forward if pressors become significant. 2. End-stage renal disease/anemia of chronic disease/debility Nephrology has been consulted. Patient may need CVVHD moving forward. Patient appears much more pale than the blood counts suggest. We will continue to monitor daily labs and intervene as necessary. Patient with no indication for acute hemodialysis. 3. Acute hypoxic respiratory insufficiency Concern for aspiration by ER. Patient does not have any infiltrates at this time, but is requiring 7 L nasal cannula to maintain saturations. Patient may have decreased infiltrates secondary to severe dehydration. We will attempt some fluid resuscitation, but cannot exclude the need for intubation moving forward. 4. Debility/type 2 diabetes mellitus/hyperlipidemia/failure to thrive/lack of guardianship Complicates care, management, recovery and prognosis. Sliding scale insulin likely reasonable for now. Patient will need a swallow evaluation. Patient is currently a full code, but long-term prognosis is extremely guarded. We will consult social work for potential emergency guardianship TIME: 32 minutes critical care time spent addressing patient's hypotension, hypoxic respiratory insufficiency, ESRD, review of all data and collaboration with care team HPI Consult Data Date of Consult: 04/28/22 HPI Narrative Reason for Consultation: Hypotension HPI Narrative: IZZY JERNIGAN is a 76 M, with past medical history listed below, who presents to [facility] on 04/28/2022 secondary to low blood sugar, altered mental status and nonfunctioning fistula. Patient reportedly was seen on the day prior in the ER with complaints of weakness and this was thought to be secondary to dehydration. Patient was given fluids and transferred back to the [facility]. Patient does have a legal guardian, but reportedly they are not capable of making decisions. Patient reportedly has had an emergency guardianship appeal sent. In the ER, patient was noted to have an altered mental status and was hypotensive with a systolic pressure of 79. Patient had appeared pale and had food particles stuck to his teeth and posterior pharynx. Patient was not able to provide any additional information. Patient was saturating well on 2 L nasal cannula, but was hypotensive. Patient was not noted to be febrile. Laboratory work-up showed no leukocytosis, but a hemoglobin of 10.8. Platelets were low at 111. Potassium was low at 3 with a creatinine of 5.41. Albumin was low at 1.4 and a VBG showed a pH of 7.35 on a nonrebreather. Chest x-ray showed increased opacities in the bilateral lower lobes and EKG showed sinus tachycardia. In the ER, patient did receive some fluid boluses, vancomycin and Zosyn. Patient is not able to provide any additional information at this time. Patient is on midodrine with dialysis at baseline. Patient reportedly has no allergies to antibiotics. It is not clear when patient last had hemodialysis. jail documentation does report patient has a full CODE STATUS for now. [facility] Medical History Atherosclerotic heart disease of [place] coronary artery without angina pectoris Chronic fatigue, unspecified Depression, unspecified End stage renal disease EPO-resistant anemia Heart failure, unspecified History of falling Hyperlipidemia, unspecified Hypertensive chronic kidney disease with stage 5 chronic kidney disease or end stage renal disease Iron deficiency anemia, unspecified Parkinson disease Retention of urine, unspecified Secondary hyperparathyroidism of renal origin Type 2 diabetes mellitus with diabetic chronic kidney disease Unspecified protein-calorie malnutrition Unsteadiness on feet Home Medications acetaminophen 500 mg tablet (Acetaminophen Extra Strength) 1,000 mg PO MOWEFR DISCOMFORT PRIOR TO DIALYSIS 04/27/22 [History Last Taken 04/26/22] ascorbic acid (vitamin C) 500 mg tablet 500 mg PO DAILY SUPPLEMENT 04/27/22 [History Last Taken 04/27/22] aspirin 325 mg tablet 325 mg PO [facility] 04/27/22 [History Last Taken 04/26/22] aspirin 81 mg tablet,delayed release 81 mg PO [facility] 04/27/22 [History Last Taken 04/27/22] atorvastatin 40 mg tablet 40 mg PO QHS CHOLESTEROL 04/27/22 [History Last Taken 04/27/22] cholecalciferol (vitamin D3) 50 mcg (2,000 unit) tablet (Vitamin D3) 50 mcg PO DAILY SUPPLEMENT 04/27/22 [History Last Taken 04/27/22] doxepin 50 mg capsule 50 mg PO QHS DEPRESSION 04/27/22 [History Last Taken 04/27/22] ferrous sulfate 325 mg (65 mg iron) tablet 325 mg PO DAILY SUPPLEMENT 04/27/22 [History Last Taken 04/27/22] insulin lispro 100 unit/mL subcutaneous solution (Humalog U-100 Insulin) See Protocol subcut TIDCM DIABETES 04/27/22 [History Last Taken 04/28/22] isosorbide mononitrate 30 mg tablet,extended release 24 hr 30 mg PO DAILY HEART 04/27/22 [History Last Taken 04/27/22] magnesium hydroxide 400 mg/5 mL oral suspension (Milk of Magnesia) 30 ml PO DAILY PRN Constipation 04/27/22 [History Last Taken Unknown] midodrine 10 mg tablet 10 mg PO MOWEFR DIALYSIS 04/27/22 [History Last Taken 04/26/22] mirtazapine 7.5 mg tablet 7.5 mg PO QHS APPETITE 04/27/22 [History Last Taken 04/27/22] nitroglycerin 0.4 mg sublingual tablet 0.4 mg sublingual Q5M PRN Chest Pain 04/27/22 [History Last Taken Unknown] omeprazole 20 mg capsule,delayed release 20 mg PO DAILY ACID REFLUX 04/27/22 [History Last Taken 04/27/22] oxybutynin chloride 5 mg tablet 5 mg PO BID OVERACTIVE BLADDER 04/27/22 [History Last Taken 04/27/22] potassium chloride 20 mEq tablet,extended release(part/cryst) 20 meq PO DAILY SUPPLEMENT 04/27/22 [History Last Taken 04/27/22] pramipexole 0.5 mg tablet 0.5 mg PO TID MUSCLE SPASMS 04/27/22 [History Last Taken 04/27/22] quetiapine 25 mg tablet 25 mg PO DAILY HALLUCINATIONS 04/27/22 [History Last Taken 04/27/22] quetiapine 50 mg tablet 50 mg PO QHS HALLUCINATIONS 04/27/22 [History Last Taken 04/27/22] sertraline 100 mg tablet 200 mg PO DAILY DEPRESSION 04/27/22 [History Last Taken 04/27/22] sodium hypochlorite 0.25 % solution (Dakin's Solution) 1 applic topical QHS WOUND 04/27/22 [History Last Taken 04/27/22] vitamin B complex and vitamin C no.20-folic acid 1 mg capsule (Triphrocaps) 1 cap PO LUNCH ESRD, TAKE AFTER DIALYSIS 04/27/22 [History Last Taken 04/27/22] Allergy/AdvReac Type Severity Reaction Status Date / Time amlodipine [From [facility]] Allergy PT UNSURE Verified 04/27/22 10:59 OF REACTION codeine Allergy PT UNSURE Verified 04/27/22 10:59 OF REACTION gemfibrozil Allergy PT UNSURE Verified 04/27/22 10:59 OF REACTION nifedipine Allergy PT UNSURE Verified 04/27/22 10:59 OF REACTION Social History household members: none housing: other Smoking Status: Unknown if ever smoked ROS Review of Systems ROS Unobtainable: due to mental status Physical Exam Narrative Central line was attempted on both sides by nurse practitioner and were unsuccessful. I attempted the left IJ and was unsuccessful. These readily collapse despite Trendelenburg and are actually smaller in caliber than the associated artery. Const Constitutional Narrative: Occasional moaning. General Appearance: lethargic and ill appearing HEENT normocephalic and head/scalp atraumatic HEENT Narrative: Dry mucous membranes. Some temporal wasting noted. Eyes PERRL and EOMs intact bilaterally Neck full ROM and no lymphadenopathy Resp Effort and Inspection: tachypneic; Negative for actively coughing Auscultation: diminished lung sounds; Negative for rales, rhonchi or wheezes Percussion: Negative for dullness Cardio regular rhythm, S1 normal heart sound, S2 normal heart sound, no murmurs, no rub and no gallops Rate: tachycardic GI normal to inspection, nondistended, normoactive bowel sounds no CVA tenderness Extremity no clubbing, cyanosis or edema Extremity Narrative: No thrill noted over left upper extremity Skin no rashes or lesions noted Neuro Neuro Narrative: Not cooperative with medical exam. Spontaneous movement of all extremities. Psych Activity / Motor Behavior: restless Mood & Affect: anxious Lab / Micro Data Result Diagrams: 04/28/22 11:03 04/28/22 11:03 Labs: Laboratory Results - last 24 hr 04/28/22 11:03: WBC 7.2, RBC 3.56 L, Hgb 10.8 L, Hct 33.6 L, MCV 94.4 H, MCH 30.3, MCHC 32.1, RDW Std Deviation 57.1 H, RDW Coeff of Mallorie 16.5 H, Plt Count 111 L, MPV 9.6, Immature Gran % (Auto) 0.600, Neut % (Auto) 86.9 H, Lymph % (Auto) 6.1 L, [place] % (Auto) 5.6, Eos % (Auto) 0.7, Baso % (Auto) 0.1, Absolute Neuts (auto) 6.2, Absolute Lymphs (auto) 0.44 L, Nucleated RBC % 0, Differential Comment SCANNED 04/28/22 11:03: Sodium 141, Potassium 3.0 L, Chloride 104, Carbon Dioxide 25.0, Anion Gap 12, BUN 42 H, Creatinine 5.41 H, Estim Creat Clear Calc 11.35, Est GFR (MDRD) Af Amer 13 L, Est GFR (MDRD) Non-Af 11 L, BUN/Creatinine Ratio 7.8 L, Glucose 101, Calcium 8.7, Total Bilirubin 1.00, AST 58 H, ALT 46, Alkaline Phosphatase 114, Total Protein 5.3 L, Albumin 1.4 L, Globulin 3.9, Albumin/Globulin Ratio 0.4 L 04/28/22 11:03: Lactic Acid 2.0 ABG Data ABG results: ABG 04/28/22 11:35 Specimen Type ASHLY VBG pH 7.35 VBG pO2 32 VBG HCO3 24 VBG Total CO2 26 VBG O2 Sat (Calc) 59 VBG Base Excess -1 POC Mix VBG pCO2 Pt Tmp 43.4 O2 Delivery Device NRB Rhythm Strip Rhythm Strip: Sinus Tach Rate: 102 Ectopy: PVC(s) Radiology Impression Chest X-Ray 04/28/22 11:35 IMPRESSION: Increased opacities in the mid to lower lungs bilaterally concerning for pneumonia or pneumonitis. Electronically Signed: Barbara Gomez MD at 11:48 EST , Charges/Coding Procedures Hospitalists Procedures: [id number] Critial Care 1st Hr
--- NOTE | 2022-04-28 17:18 | PCM.OP.BLANK ---
Operative Report Date of Procedure: 04/28/22 Central line placement procedure note Indication: IV access/hemodynamic instability/vasoactive medications Procedure: A time-out was completed to verify correct patient, indication, medication allergies, procedure, coagulation studies, informed consent signed, and equipment needed. The patient was placed in the supine position for a central line placement to the rt IJ vein. The patients rt neck was prepped using chlorhexidine and a full body sterile drape was applied. 1% lidocaine was used to anesthetize the surrounding skin. Several attempts to Rt IJ unsuccessful. No signs of complications. Pressure to site follow by dry sterile dressing. Left neck prepped using chlorhexidine and full body drape applied. Attempted to access Left IJ several times without success. Pressure to the site followed by dry sterile dressing. Dr Zamora at the bedside. No signs of complication. CXR ordered to confirm no complication. Procedures Hospitalists Procedures: [id number] Insert Non-tunnel CV Cath
--- NOTE | 2022-04-28 17:19 | RAD_ITS ---
STUDY: X-RAY CHEST REASON FOR EXAM: Male, 76 years old. CHEST PAIN POSSIBLE PNEUMOTHORAX TECHNIQUE: XR Chest 1 View COMPARISON: Study done earlier today. FINDINGS: There are bilateral pleural effusions. There are bilateral infiltrates. There is no pneumothorax. Normal size heart. Normal mediastinum and kelli. Normal visualized pulmonary arteries. There is atherosclerotic calcification of the aortic arch with tortuosity. Normal visualized thoracic spine. Normal visualized ribs, clavicles, and shoulders. There is no demonstrated abnormality of the visualized soft tissue structures of the upper abdomen. RAD/Chest 1 View (Portable) IMPRESSION: There are bilateral pleural effusions. There are bilateral infiltrates. There is no pneumothorax. Electronically Signed: Babak Franco MD at 17:46 EST ,
[2022-04-28] MEDS: Lactated Ringers 1,000 ML 999 ML IV (17:45)
--- NOTE | 2022-04-28 18:01 | HP.PCM.HOS_ITS ---
HPI - General General Date of Admission: 04/28/22 Date of Service: 04/28/22 Chief Complaint: Status change, lethargy HPI Narrative IZZY JERNIGAN, is a 76 M who presents to the emergency room at [facility] after being transferred from a local extended care facility at which he resides due to declining overall status including increased confusion and difficulty with oral intake. 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 The [facility] facility at which the patient resides is attempting to get a guardian appointed for the patient but this has not been carried out yet. Patient was not able to be dialyzed today due to the fact his fistula clotted off. Evaluation in the emergency room revealed the patient to be minimally responsive, according to the emergency room physician, he suctioned food and debris out of the patient's oral cavity, patient was placed on supplemental oxygen and labs were obtained, white blood cell count was 7.2, hemoglobin was 10.8, venous blood gas showed a pH of 7.35, patient's CHEM panel revealed a potassium of 3, creatinine was 5.41, BUN was 42. Lactic acid was 2, patient's chest x-ray showed increased opacities in the mid to lower lung torres bilaterally concerning for pneumonia or pneumonitis. Patient was given IV antibiotics, he was transferred to the ICU in guarded condition, he will be seen by critical care, I contacted nephrology about his admission. [facility] Medical History Atherosclerotic heart disease of [place] coronary artery without angina pectoris Chronic fatigue, unspecified Depression, unspecified End stage renal disease EPO-resistant anemia Heart failure, unspecified History of falling Hyperlipidemia, unspecified Hypertensive chronic kidney disease with stage 5 chronic kidney disease or end stage renal disease Iron deficiency anemia, unspecified Parkinson disease Retention of urine, unspecified Secondary hyperparathyroidism of renal origin Type 2 diabetes mellitus with diabetic chronic kidney disease Unspecified protein-calorie malnutrition Unsteadiness on feet Home Medications acetaminophen 500 mg tablet (Acetaminophen Extra Strength) 1,000 mg PO MOWEFR DISCOMFORT PRIOR TO DIALYSIS 04/27/22 [History Last Taken 04/26/22] ascorbic acid (vitamin C) 500 mg tablet 500 mg PO DAILY SUPPLEMENT 04/27/22 [History Last Taken 04/27/22] aspirin 325 mg tablet 325 mg PO [facility] 04/27/22 [History Last Taken 04/26/22] aspirin 81 mg tablet,delayed release 81 mg PO [facility] 04/27/22 [History Last Taken 04/27/22] atorvastatin 40 mg tablet 40 mg PO QHS CHOLESTEROL 04/27/22 [History Last Taken 04/27/22] cholecalciferol (vitamin D3) 50 mcg (2,000 unit) tablet (Vitamin D3) 50 mcg PO DAILY SUPPLEMENT 04/27/22 [History Last Taken 04/27/22] doxepin 50 mg capsule 50 mg PO QHS DEPRESSION 04/27/22 [History Last Taken 04/27/22] ferrous sulfate 325 mg (65 mg iron) tablet 325 mg PO DAILY SUPPLEMENT 04/27/22 [History Last Taken 04/27/22] insulin lispro 100 unit/mL subcutaneous solution (Humalog U-100 Insulin) See P rotocol subcut TIDCM DIABETES 04/27/22 [History Last Taken 04/28/22] isosorbide mononitrate 30 mg tablet,extended release 24 hr 30 mg PO DAILY HEART 04/27/22 [History Last Taken 04/27/22] magnesium hydroxide 400 mg/5 mL oral suspension (Milk of Magnesia) 30 ml PO DAILY PRN Constipation 04/27/22 [History Last Taken Unknown] midodrine 10 mg tablet 10 mg PO MOWEFR DIALYSIS 04/27/22 [History Last Taken 04/26/22] mirtazapine 7.5 mg tablet 7.5 mg PO QHS APPETITE 04/27/22 [History Last Taken 04/27/22] nitroglycerin 0.4 mg sublingual tablet 0.4 mg sublingual Q5M PRN Chest Pain 04/27/22 [History Last Taken Unknown] omeprazole 20 mg capsule,delayed release 20 mg PO DAILY ACID REFLUX 04/27/22 [History Last Taken 04/27/22] oxybutynin chloride 5 mg tablet 5 mg PO BID OVERACTIVE BLADDER 04/27/22 [History Last Taken 04/27/22] potassium chloride 20 mEq tablet,extended release(part/cryst) 20 meq PO DAILY SUPPLEMENT 04/27/22 [History Last Taken 04/27/22] pramipexole 0.5 mg tablet 0.5 mg PO TID MUSCLE SPASMS 04/27/22 [History Last Taken 04/27/22] quetiapine 25 mg tablet 25 mg PO DAILY HALLUCINATIONS 04/27/22 [History Last Taken 04/27/22] quetiapine 50 mg tablet 50 mg PO QHS HALLUCINATIONS 04/27/22 [History Last Taken 04/27/22] sertraline 100 mg tablet 200 mg PO DAILY DEPRESSION 04/27/22 [History Last Taken 04/27/22] sodium hypochlorite 0.25 % solution (Dakin's Solution) 1 applic topical QHS WOUND 04/27/22 [History Last Taken 04/27/22] vitamin B complex and vitamin C no.20-folic acid 1 mg capsule (Triphrocaps) 1 cap PO LUNCH ESRD, TAKE AFTER DIALYSIS 04/27/22 [History Last Taken 04/27/22] Allergy/AdvReac Type Severity Reaction Status Date / Time amlodipine [From [facility]] Allergy PT UNSURE Verified 04/27/22 10:59 OF REACTION codeine Allergy PT UNSURE Verified 04/27/22 10:59 OF REACTION gemfibrozil Allergy PT UNSURE Verified 04/27/22 10:59 OF REACTION nifedipine Allergy PT UNSURE Verified 04/27/22 10:59 OF REACTION Social History household members: none housing: other Smoking Status: Unknown if ever smoked ROS ROS Narrative Review of systems was unable to be obtained from the patient due to confusion and lethargy Vital Signs Vital Signs Vital Signs: 04/28/22 10:33 04/28/22 10:36 04/28/22 10:37 Temperature 98.8 F 97.8 F Temperature Source Temporal Temporal Pulse Rate 66 66 Respiratory Rate 15 14 Respiratory Effort Normal Respiratory Pattern Bradypnea Blood Pressure 96/78 96/76 Blood Pressure Mean 84 82 Pulse Ox 92 2 Oxygen Delivery Method Nasal Cannula Nasal Cannula Oxygen Flow Rate (L/min) 2 2 04/28/22 10:53 04/28/22 10:53 04/28/22 13:18 Temperature 99.0 F Temperature Source Temporal Pulse Rate 102 H Respiratory Rate 19 H Respiratory Effort Respiratory Pattern Blood Pressure 98/55 L Blood Pressure Mean 69 Pulse Ox 45 95 98 Oxygen Delivery Method Nasal Cannula Non-Rebreather Non-Rebreather Oxygen Flow Rate (L/min) 2 15 15 04/28/22 13:21 04/28/22 13:21 04/28/22 14:10 Temperature 98.5 F 98.2 F Temperature Source Temporal Temporal Pulse Rate 101 H 102 H Respiratory Rate 26 H 23 H 20 H Respiratory Effort Respiratory Pattern Blood Pressure 88/44 L 64/24 L Blood Pressure Mean 58 37 Pulse Ox 99 98 Oxygen Delivery Method Non-Rebreather Room Air Oxygen Flow Rate (L/min) 15 Weight Weight: 65.6 kg Body Mass Index (BMI) 20.1 Physical Exam Const alert and no apparent distress Constitutional Narrative: Patient appears cachectic, he is alert and oriented to time and person General Appearance: cooperative and well developed Orientation / Consciousness: awake, oriented to person and oriented to time HEENT normocephalic, head/scalp atraumatic, hearing grossly normal bilaterally and moist oral mucous membranes Eyes PERRL, EOMs intact bilaterally and conjunctivae normal Neck supple, no JVD, thyroid normal and no carotid bruits General: trachea midline Resp normal respiratory effort, no retractions, no use of accessory muscles and clear to auscultation bilaterally Auscultation: Negative for rales, rhonchi or wheezes Cardio regular rate, regular rhythm, S1 normal heart sound, S2 normal heart sound, no murmurs, no rub and no gallops GI normal to inspection, nondistended, normoactive bowel sounds, soft to palpation, non-tender and non-distended Extremity no clubbing, cyanosis or edema Skin no rashes or lesions noted General Skin Exam: no breakdown Neuro oriented x3, CN's II-XII intact bilaterally, moves all extremities, no focal motor deficits and no sensory deficits noted Sensorium / Orientation: awake, oriented to person and oriented to time Psych Psych Narrative: Patient exhibits mild confusion Results Lab / Micro Data Result Diagrams: 04/28/22 11:03 04/28/22 11:03 Labs: Laboratory Results - last 24 hr 04/28/22 11:03: WBC 7.2, RBC 3.56 L, Hgb 10.8 L, Hct 33.6 L, MCV 94.4 H, MCH 30.3, MCHC 32.1, RDW Std Deviation 57.1 H, RDW Coeff of Mallorie 16.5 H, Plt Count 111 L, MPV 9.6, Immature Gran % (Auto) 0.600, Neut % (Auto) 86.9 H, Lymph % (Auto) 6.1 L, [place] % (Auto) 5.6, Eos % (Auto) 0.7, Baso % (Auto) 0.1, Absolute Neuts (auto) 6.2, Absolute Lymphs (auto) 0.44 L, Nucleated RBC % 0, Differential Comment SCANNED 04/28/22 11:03: Sodium 141, Potassium 3.0 L, Chloride 104, Carbon Dioxide 25.0, Anion Gap 12, BUN 42 H, Creatinine 5.41 H, Estim Creat Clear Calc 11.35, Est GFR (MDRD) Af Amer 13 L, Est GFR (MDRD) Non-Af 11 L, BUN/Creatinine Ratio 7.8 L, Glucose 101, Calcium 8.7, Total Bilirubin 1.00, AST 58 H, ALT 46, Alkaline Phosphatase 114, Total Protein 5.3 L, Albumin 1.4 L, Globulin 3.9, Albumin/Globulin Ratio 0.4 L 04/28/22 11:03: Lactic Acid 2.0 ABG Data ABG results: ABG 04/28/22 11:35 Specimen Type ASHLY VBG pH 7.35 VBG pO2 32 VBG HCO3 24 VBG Total CO2 26 VBG O2 Sat (Calc) 59 VBG Base Excess -1 POC Mix VBG pCO2 Pt Tmp 43.4 O2 Delivery Device NRB Rhythm Strip Rhythm Strip: Sinus Tach Rate: 102 Ectopy: PVC(s) Radiology Impression Chest X-Ray 04/28/22 11:35 IMPRESSION: Increased opacities in the mid to lower lungs bilaterally concerning for pneumonia or pneumonitis. Electronically Signed: Barbara Gomez MD at 11:48 EST , Chest X-Ray 04/28/22 17:19 IMPRESSION: There are bilateral pleural effusions. There are bilateral infiltrates. There is no pneumothorax. Electronically Signed: Babak Franco MD at 17:46 EST , Assessment & Plan Assessment/Plan (1) Aspiration into respiratory tract: PLAN: Plan 1. Aspiration pneumonia-patient was admitted to ICU, he will be seen in consultation by critical care, IV meropenem and vancomycin will be given to the patient, labs will be monitored, patient will be seen by speech therapy #2 acute hypoxic respiratory failure-critical care will be seeing the patient, pulse ox will be monitored #3 chronic psychosis-complicates care, medical recovery, management, and prognosis, I have placed him on IV Haldol as needed due to the fact that he is not safe for oral intake #4 end-stage renal disease on dialysis-patient will be seen by nephrology, a dialysis catheter will need to be placed #5 Parkinson's disease-patient will be seen by speech therapy, complicates care, medical recovery, management, and prognosis #6 hyperlipidemia-patient is n.p.o. presently, he is on atorvastatin at the long term, this will be held Total clinical time spent by myself addressing patient's medical issues, reviewing all the data, and collaborating with patient's care team: 75 minutes Charges/Coding Visit Charges Inpatient E&M: 03300 Subs Hosp L2
[2022-04-28 18:46] LABS: Lactic Acid 2.4 mmol/L (0.4-1.9)
[2022-04-28] MEDS: Heparin Injection (Vial) 5,000 UNIT/ML VIAL 5000 UNIT SC (22:26)
[2022-04-28] MEDS: 0.9% Saline Lock 10 ML Syringe IV (22:26)
--- NOTE | 2022-04-28 23:40 | RAD_ITS ---
STUDY: X-RAY CHEST REASON FOR EXAM: Male, 76 years old. Crackles TECHNIQUE: Single AP portable view of the chest. COMPARISON: April 28, 2022 chest x-ray, April 27, 2022 12:53 PM FINDINGS: Is worsening opacity within the left midlung zone. There is blunting of the left costophrenic angle. Is visualized focal right perihilar opacity. There is borderline cardiomegaly. Normal mediastinum and kelli. Normal visualized pulmonary arteries. There is atherosclerotic calcification of the aortic arch with tortuosity. There are diffuse degenerative changes of the visualized thoracic spine. Normal visualized ribs, clavicles, and shoulders. There is no demonstrated abnormality of the visualized soft tissue structures of the upper abdomen. RAD/Chest 1 View (Portable) IMPRESSION: Worsening bilateral lingular and/or middle lobe infiltrates. Trace left effusion. Consider pneumonia. Electronically Signed: Roslyn Espana MD at 1:37 EST Reading Location ID and State: [facility] / [place] Tel , Service support ,
--- NOTE | 2022-04-28 23:58 | PHA.PHARE_ITS ---
Consult Pharmacy has been consulted to manage selected antiobiotic: Vancomycin Type of Consult: New start Suspected Infection: Pneumonia Prior Doses of Antibiotics Received/Current Regimen: Medications Discontinued Medications Vancomycin HCl 1,750 mg/ (Sodium Chloride) 535 mls @ 250 mls/hr IV X1 ONE Stop: 04/28/22 13:52 Last Admin: 04/28/22 14:58 Dose: Infused Labs: Sodium 141 mmol/L (136-145) 04/28/22 11:03 Potassium 3.0 mmol/L (3.5-5.1) L 04/28/22 11:03 Chloride 104 mmol/L (98-107) 04/28/22 11:03 Carbon Dioxide 25.0 mmol/L (21.0-32.0) 04/28/22 11:03 Anion Gap 12 (5-15) 04/28/22 11:03 BUN 42 mg/dL (7-18) H 04/28/22 11:03 Creatinine 5.41 mg/dL (0.70-1.30) H 04/28/22 11:03 Est GFR (MDRD) Af Amer 13 mL/min (>60) L 04/28/22 11:03 Est GFR (MDRD) Non-Af 11 mL/min (>60) L 04/28/22 11:03 BUN/Creatinine Ratio 7.8 RATIO (10-20) L 04/28/22 11:03 Glucose 101 mg/dL (74-106) 04/28/22 11:03 Weight used for dosin.6 kg Estimated Creatinine Clearance: 11.4 Goal Trough: 15-20 mcg/mL Pharmacy Plan for Drug Dosing: Initial vancomycin dose of 1750mg was given in ED 04/28/22. With HD planned for Saturday 04/29, a second vanco dose of 500mg will be scheduled to be given post- dialysis. Further dosing will be determined from random levels and timing arranged with nursing/nephrology. Pharmacy Service will continue to monitor and adjust dosing as required.
[2022-04-29] VITALS (58 sets, daily range): BP systolic 69–125; BP diastolic 33–104; PULSE 94–128; RESP 12–38; TEMP 36.3–37.1; O2SAT 73–100
[2022-04-29 04:14] LABS: Absolute Lymphocyte Count 0.33 X10^3/uL (0.83-4.51); Absolute Neutrophil Count 6.6 X10^3/uL (2.0-7.7); Basophil# 0.01 X10^3/uL; Basophil% 0.1 % (0-1); Eosinophil# 0.02 X10^3/uL; Eosinophils% 0.3 % (0-5); Hematocrit 32.4 % (40-54); Hemoglobin 10.8 g/dL (13.0-16.5); Lymphocyte # 0.33 X10^3/ul (0.83-4.51); Lymphocyte % 4.5 % (19-41); Mean Corp Hgb Conc 33.3 g/dL (32-36); Mean Corpuscular Hgb 30.8 pg (27.0-32.0); Mean Corpuscular Volume 92.3 fL (80-94); Mean Platelet Vol. 10.2 fl (6.2-12.0); Monocyte# 0.28 X10^3/uL; Monocyte% 3.8 % (0-10); NRBC Flagged by Analyzer 0 % (0-5); Neutrophil # 6.59 X10^3/uL (2.7-7.7); Neutrophil % 90.5 % (47-70); POSITIVE DIFFERENTIAL YES; Platelet Count 136 K/mm3 (150-450); RBC Distribution Width CV 16.8 % (11.6-14.6); Red Blood Count 3.51 M/mm3 (4.6-6.2); White Blood Count 7.3 K/mm3 (4.4-11.0)
[2022-04-29 04:15] LABS: Differential Indicated SCAN CRITERIA MET
[2022-04-29 04:54] LABS: Anion Gap 11 (5-15); BUN 45 mg/dL (7-18); BUN/Creat Ratio 8.5 RATIO (10-20); Calcium,Total 8.5 mg/dL (8.5-10.1); Chloride 108 mmol/L (98-107); Creatinine, Serum 5.29 mg/dL (0.70-1.30); EST Glomerular Filtration Rate 11 mL/min (>60); Est Glom Filt Rate - Afr Amer 14 mL/min (>60); Glucose 103 mg/dL (74-106); Magnesium 2.1 mg/dL (1.6-2.6); Potassium 2.8 mmol/L (3.5-5.1); Sodium Level 143 mmol/L (136-145)
[2022-04-29] MEDS: Heparin Injection (Vial) 5,000 UNIT/ML VIAL 5000 UNIT SC ×3 (05:52→21:18)
[2022-04-29 06:20] LABS: Differential Comment SCANNED
--- NOTE | 2022-04-29 07:28 | PCM.PN.INT ---
Assessment & Plan Assessment/Plan (1) Adult failure to thrive: (2) Arteriovenous fistula occlusion: (3) Acute respiratory failure with hypoxia: (4) End stage renal failure on dialysis: PLAN: Plan RECOMMENDATIONS: 1. Continue with empiric antibiotics 2. Continue midodrine therapy 3. Bolus with 1 L of LR 4. Consult nephrology for dialysis 5. Swallow evaluation 6. Case management/social work for social issues 7. Peripheral Levophed if necessary IMPRESSIONS: 1. Hypotension Unclear etiology. Patient still appears to be very volume depleted. Sepsis cannot be excluded. Agree with empiric antibiotics for now. We will continue midodrine therapy. Patient will given an additional bolus, but cannot exclude the need for peripheral Levophed. Attempts at a line of been unsuccessful yesterday, but no complications were noted. Patient is not currently taking steroids, but cannot exclude the need for stress dose steroids moving forward if pressors become significant. 2. End-stage renal disease/anemia of chronic disease/debility Nephrology has been consulted. Patient may need CVVHD moving forward. Patient appears much more pale than the blood counts suggest. We will continue to monitor daily labs and intervene as necessary. Patient with no indication for acute hemodialysis. 3. Acute hypoxic respiratory insufficiency Concern for aspiration by ER. Patient does not have any infiltrates at this time, but is requiring 7 L nasal cannula to maintain saturations. Patient may have decreased infiltrates secondary to severe dehydration. We will attempt some fluid resuscitation, but cannot exclude the need for intubation moving forward. May obtain a chest x-ray once patient appears euvolemic to see if infiltrates are present 4. Debility/type 2 diabetes mellitus/hyperlipidemia/failure to thrive/lack of guardianship Complicates care, management, recovery and prognosis. Sliding scale insulin likely reasonable for now. Patient will need a swallow evaluation. Patient is currently a full code, but long-term prognosis is extremely guarded. We will consult social work for potential emergency guardianship TIME: 31 minutes critical care time spent addressing patient's hypotension, hypoxic respiratory insufficiency, ESRD, review of all data and collaboration with care team Subjective Subjective Patient did okay overnight. Patient did have some marginal blood pressures, but no additional boluses or pressors needed to be initiated. Patient remains confused, but is not reporting any pain. Patient's speech is very garbled secondary to dry mouth. Objective Data Objective Data Vital Signs: Vital Signs Temp Pulse Resp BP Pulse Ox O2 Del Method O2 Flow Rate 36.6 C 97 18 88/51 L 95 Nasal Cannula 7 04/29/22 05:00 04/29/22 07:00 04/29/22 07:00 04/29/22 07:00 04/29/22 07:00 04/29/22 07:00 04/29/22 07:00 FiO2 15 04/28/22 19:00 Oxygen Flow Rate (L/min) 7 Oxygen Delivery Method Nasal Cannula Weight: 64.2 kg Body Mass Index (BMI) 20.1 Intake & Output: Intake and Output for Last 24 Hours 04/27/22 04/28/22 04/29/22 23:59 23:59 23:59 Intake Total 3135 / 3135 120 / 120 Output Total 0 / 0 0 / 0 Balance 3135 / 3135 120 / 120 Lab / Micro Data Attestation: I reviewed the patient's lab results. Result Diagrams: 04/29/22 04:00 04/29/22 04:34 Labs: Laboratory Results - last 24 hr 04/28/22 11:03: WBC 7.2, RBC 3.56 L, Hgb 10.8 L, Hct 33.6 L, MCV 94.4 H, MCH 30.3, MCHC 32.1, RDW Std Deviation 57.1 H, RDW Coeff of Mallorei 16.5 H, Plt Count 111 L, MPV 9.6, Immature Gran % (Auto) 0.600, Neut % (Auto) 86.9 H, Lymph % (Auto) 6.1 L, Crosby % (Auto) 5.6, Eos % (Auto) 0.7, Baso % (Auto) 0.1, Absolute Neuts (auto) 6.2, Absolute Lymphs (auto) 0.44 L, Nucleated RBC % 0, Differential Comment SCANNED 04/28/22 11:03: Sodium 141, Potassium 3.0 L, Chloride 104, Carbon Dioxide 25.0, Anion Gap 12, BUN 42 H, Creatinine 5.41 H, Estim Creat Clear Calc 11.35, Est GFR (MDRD) Af Amer 13 L, Est GFR (MDRD) Non-Af 11 L, BUN/Creatinine Ratio 7.8 L, Glucose 101, Calcium 8.7, Total Bilirubin 1.00, AST 58 H, ALT 46, Alkaline Phosphatase 114, Total Protein 5.3 L, Albumin 1.4 L, Globulin 3.9, Albumin/Globulin Ratio 0.4 L 04/28/22 11:03: Lactic Acid 2.0 04/28/22 17:42: Lactic Acid 2.4 H* 04/29/22 04:00: WBC 7.3, RBC 3.51 L, Hgb 10.8 L, Hct 32.4 L, MCV 92.3, MCH 30.8, MCHC 33.3, RDW Std Deviation 57.0 H, RDW Coeff of Mallorie 16.8 H, Plt Count 136 L, MPV 10.2, Immature Gran % (Auto) 0.800, Neut % (Auto) 90.5 H, Lymph % (Auto) 4.5 L, Crosby % (Auto) 3.8, Eos % (Auto) 0.3, Baso % (Auto) 0.1, Absolute Neuts (auto) 6.6, Absolute Lymphs (auto) 0.33 L, Nucleated RBC % 0, Differential Comment SCANNED 04/29/22 04:00: Sodium Cancelled, Potassium Cancelled, Chloride Cancelled, Carbon Dioxide Cancelled, Anion Gap Cancelled, BUN Cancelled, Creatinine Cancelled, Estim Creat Clear Calc Cancelled, Est GFR (MDRD) Af Amer Cancelled, Est GFR (MDRD) Non-Af Cancelled, BUN/Creatinine Ratio Cancelled, Glucose Cancelled, Calcium Cancelled, Phosphorus Cancelled, Magnesium Cancelled 04/29/22 04:34: Sodium 143, Potassium 2.8 L, Chloride 108 H, Carbon Dioxide 24.0, Anion Gap 11, BUN 45 H, Creatinine 5.29 H, Estim Creat Clear Calc 11.20, Est GFR (MDRD) Af Amer 14 L, Est GFR (MDRD) Non-Af 11 L, BUN/Creatinine Ratio 8.5 L, Glucose 103, Calcium 8.5, Phosphorus 2.0 L, Magnesium 2.1 ABG Data ABG results: ABG 04/28/22 11:35 Specimen Type ASHLY VBG pH 7.35 VBG pO2 32 VBG HCO3 24 VBG Total CO2 26 VBG O2 Sat (Calc) 59 VBG Base Excess -1 POC Mix VBG pCO2 Pt Tmp 43.4 O2 Delivery Device NRB Radiography Diagnostic Testing: Radiology Impression Chest X-Ray 04/28/22 11:35 IMPRESSION: Increased opacities in the mid to lower lungs bilaterally concerning for pneumonia or pneumonitis. Electronically Signed: Barbara Gomez MD at 11:48 EST , Chest X-Ray 04/28/22 17:19 IMPRESSION: There are bilateral pleural effusions. There are bilateral infiltrates. There is no pneumothorax. Electronically Signed: Babak Franco MD at 17:46 EST , Chest X-Ray 04/28/22 23:40 IMPRESSION: Worsening bilateral lingular and/or middle lobe infiltrates. Trace left effusion. Consider pneumonia. Electronically Signed: Roslyn Espana MD at 1:37 EST , Rhythm Strip Rhythm Strip: Sinus Tach Rate: 104 Ectopy: PVC(s) Physical Exam Const alert Constitutional Narrative: Opening eyes and attempting to interact General Appearance: lethargic and ill appearing HEENT normocephalic and head/scalp atraumatic Eyes PERRL and EOMs intact bilaterally Neck full ROM and no lymphadenopathy Resp Effort and Inspection: Negative for actively coughing Auscultation: diminished lung sounds; Negative for rales, rhonchi or wheezes Percussion: Negative for dullness Cardio regular rhythm, S1 normal heart sound, S2 normal heart sound, no murmurs, no rub and no gallops Rate: tachycardic GI normal to inspection, nondistended, normoactive bowel sounds no CVA tenderness Extremity no clubbing, cyanosis or edema Extremity Narrative: No thrill noted over left upper extremity Skin no rashes or lesions noted Neuro Neuro Narrative: Not cooperative with medical exam. Spontaneous movement of all extremities. Psych Activity / Motor Behavior: restless Mood & Affect: anxious Charges/Coding Procedures [id number]
[2022-04-29] MEDS: Lactated Ringers 500 ML 999 ML IV (08:11)
--- NOTE | 2022-04-29 08:47 | NURSING ---
0845 Dr Blanco present in pt room, prep for line placement HR 99, BP 102/56 (70), R 25, SpO2 98 0850 HR 97 BP 97/53 (66) R 25 SpO2 0855 HR 100 BP 95/58 (70) R 23 SpO2 pt placed in trendelenburg, line placement begin 0900 HR 100 BP 103/65 (71) R 23 SpO2 92 0905 HR 102 BP 99/69 (80) R 25 trendelenburg increased 0908 wire in 0910 HR 103 BP 99/69 R 24 R wire out, RIJ TDC locked hep [id number] 3.2 0915 HR 105 BP 97/60 ( 72), R 24 prep LIJ TL placement 0920 HR 106 BP 100/86 (93) R 27 placement in progress 0922 wire in 0925 HR 105 BP 90/62 (71) R 29 line placed out of trendelenburg 0930 HR 103 BP 92/56 (68) R 24
--- NOTE | 2022-04-29 09:00 | PCM.PN.HOSP ---
Reason for Visit Reason for Visit: Diagnoses Acute respiratory failure with hypoxia (04/28/22) End stage renal disease (04/28/22) Adult failure to thrive (04/28/22) Unspecified foreign body in respiratory tract, part unspecified causing other injury, initial encounter (04/28/22) Other specified complication of vascular prosthetic devices, implants and grafts, initial encounter (04/28/22) Dependence on renal dialysis (04/28/22) Subjective Subjective Seen and examined today, he remains confused today, he is going to have a dialysis catheter placed, he is currently receiving fluids. Oxygen is at 7 L via nasal cannula, labs this morning showed an elevated creatinine of 5.29, BUN was 45, potassium was 2.8. Patient's white count remains normal, patient's hemoglobin was 10.8. Objective Data Objective Data Vital Signs: Vital Signs Temp Pulse Resp BP Pulse Ox O2 Del Method O2 Flow Rate 98 F 97 18 88/51 L 89 Nasal Cannula 7 04/29/22 05:00 04/29/22 07:00 04/29/22 07:00 04/29/22 07:00 04/29/22 08:45 04/29/22 08:45 04/29/22 08:45 FiO2 15 04/28/22 19:00 Oxygen Flow Rate (L/min) 7 Oxygen Delivery Method Nasal Cannula Weight: 64.2 kg Body Mass Index (BMI) 20.1 Intake & Output: Intake and Output for Last 24 Hours 04/27/22 04/28/22 04/29/22 23:59 23:59 23:59 Intake Total 3135 / 3135 120 / 120 Output Total 0 / 0 0 / 0 Balance 3135 / 3135 120 / 120 Lab / Micro Data Result Diagrams: 04/29/22 04:00 04/29/22 04:34 Labs: Laboratory Results - last 24 hr 04/28/22 11:03: WBC 7.2, RBC 3.56 L, Hgb 10.8 L, Hct 33.6 L, MCV 94.4 H, MCH 30.3, MCHC 32.1, RDW Std Deviation 57.1 H, RDW Coeff of Mallorie 16.5 H, Plt Count 111 L, MPV 9.6, Immature Gran % (Auto) 0.600, Neut % (Auto) 86.9 H, Lymph % (Auto) 6.1 L, Clay % (Auto) 5.6, Eos % (Auto) 0.7, Baso % (Auto) 0.1, Absolute Neuts (auto) 6.2, Absolute Lymphs (auto) 0.44 L, Nucleated RBC % 0, Differential Comment SCANNED 04/28/22 11:03: Sodium 141, Potassium 3.0 L, Chloride 104, Carbon Dioxide 25.0, Anion Gap 12, BUN 42 H, Creatinine 5.41 H, Estim Creat Clear Calc 11.35, Est GFR (MDRD) Af Amer 13 L, Est GFR (MDRD) Non-Af 11 L, BUN/Creatinine Ratio 7.8 L, Glucose 101, Calcium 8.7, Total Bilirubin 1.00, AST 58 H, ALT 46, Alkaline Phosphatase 114, Total Protein 5.3 L, Albumin 1.4 L, Globulin 3.9, Albumin/Globulin Ratio 0.4 L 04/28/22 11:03: Lactic Acid 2.0 04/28/22 17:42: Lactic Acid 2.4 H* 04/29/22 04:00: WBC 7.3, RBC 3.51 L, Hgb 10.8 L, Hct 32.4 L, MCV 92.3, MCH 30.8, MCHC 33.3, RDW Std Deviation 57.0 H, RDW Coeff of Mallorie 16.8 H, Plt Count 136 L, MPV 10.2, Immature Gran % (Auto) 0.800, Neut % (Auto) 90.5 H, Lymph % (Auto) 4.5 L, Clay % (Auto) 3.8, Eos % (Auto) 0.3, Baso % (Auto) 0.1, Absolute Neuts (auto) 6.6, Absolute Lymphs (auto) 0.33 L, Nucleated RBC % 0, Differential Comment SCANNED 04/29/22 04:00: Sodium Cancelled, Potassium Cancelled, Chloride Cancelled, Carbon Dioxide Cancelled, Anion Gap Cancelled, BUN Cancelled, Creatinine Cancelled, Estim Creat Clear Calc Cancelled, Est GFR (MDRD) Af Amer Cancelled, Est GFR (MDRD) Non-Af Cancelled, BUN/Creatinine Ratio Cancelled, Glucose Cancelled, Calcium Cancelled, Phosphorus Cancelled, Magnesium Cancelled 04/29/22 04:34: Sodium 143, Potassium 2.8 L, Chloride 108 H, Carbon Dioxide 24.0, Anion Gap 11, BUN 45 H, Creatinine 5.29 H, Estim Creat Clear Calc 11.20, Est GFR (MDRD) Af Amer 14 L, Est GFR (MDRD) Non-Af 11 L, BUN/Creatinine Ratio 8.5 L, Glucose 103, Calcium 8.5, Phosphorus 2.0 L, Magnesium 2.1 ABG Data ABG results: ABG 04/28/22 11:35 Specimen Type ASHLY VBG pH 7.35 VBG pO2 32 VBG HCO3 24 VBG Total CO2 26 VBG O2 Sat (Calc) 59 VBG Base Excess -1 POC Mix VBG pCO2 Pt Tmp 43.4 O2 Delivery Device NRB Radiography Diagnostic Testing: Radiology Impression Chest X-Ray 04/28/22 11:35 IMPRESSION: Increased opacities in the mid to lower lungs bilaterally concerning for pneumonia or pneumonitis. Electronically Signed: Barbara Gomez MD at 11:48 EST , Chest X-Ray 04/28/22 17:19 IMPRESSION: There are bilateral pleural effusions. There are bilateral infiltrates. There is no pneumothorax. Electronically Signed: Babak Franco MD at 17:46 EST , Chest X-Ray 04/28/22 23:40 IMPRESSION: Worsening bilateral lingular and/or middle lobe infiltrates. Trace left effusion. Consider pneumonia. Electronically Signed: Roslyn Espana MD at 1:37 EST , Rhythm Strip Rhythm Strip: Sinus Tach Rate: 104 Ectopy: PVC(s) Physical Exam Narrative Patient is confused this morning and only mumbles a few words which are unintelligible. He does not appear to be in any distress Const alert and no apparent distress Orientation / Consciousness: awake HEENT normocephalic and head/scalp atraumatic Mouth: dry mucous membranes Eyes PERRL, EOMs intact bilaterally and conjunctivae normal Neck supple, no JVD and thyroid normal General: trachea midline Resp normal respiratory effort, no retractions, no use of accessory muscles and clear to auscultation bilaterally Auscultation: Negative for rales, rhonchi or wheezes Cardio regular rate, regular rhythm, S1 normal heart sound, S2 normal heart sound, no murmurs, no rub and no gallops GI normal to inspection, nondistended, normoactive bowel sounds, soft to palpation, non-tender and non-distended Extremity no clubbing, cyanosis or edema Skin no rashes or lesions noted General Skin Exam: no breakdown Neuro CN's II-XII intact bilaterally and moves all extremities Neuro Narrative: Patient is confused Sensorium / Orientation: alert Psych Psych Narrative: Patient is confused Assessment & Plan Assessment/Plan (1) Acute dehydration: (2) Aspiration into respiratory tract: PLAN: Plan 1. Aspiration pneumonia-continue present antibiotic coverage, pulmonary medicine is participating in his care #2 acute hypoxic respiratory failure-patient is currently on nasal cannula O2, continue to monitor pulse ox #3 chronic psychosis-complicates care, medical recovery, management, and prognosis, I have placed him on IV Haldol as needed due to the fact that he is not safe for oral intake #4 end-stage renal disease on dialysis-patient will be seen by nephrology, a dialysis catheter will need to be placed today #5 Parkinson's disease-patient will be seen by speech therapy, complicates care, medical recovery, management, and prognosis #6 hyperlipidemia-patient is n.p.o. presently, he is on atorvastatin at the correction, this will be held #7 hypokalemia-potassium replacement was ordered today by critical care Total clinical time spent by myself addressing patient's medical issues, reviewing all the data, and collaborating with patient's care team: 35 minutes Charges/Coding Visit Charges Inpatient E&M: 72037 Subs Hosp L2
--- NOTE | 2022-04-29 09:34 | EX.PCM.CON.S ---
Assessment & Plan Assessment/Plan (1) Need for intravenous access: (2) Acute encephalopathy: (3) Acute respiratory failure with hypoxia: (4) End stage renal failure on dialysis: PLAN: Plan Plan in place temporary dialysis catheter as well as triple-lumen catheter emergently is unable to obtain consent from any family. Rohini Blanco M.D. Pager: [phone] [facility] [address] [place] [address], [facility], [address] [place] [address] Office: [phone] HPI Consult Data Date of Consult: 04/29/22 HPI Narrative HPI Narrative: IZZY JERNIGAN, is a 76 M who admitted to the ICU with acute encephalopathy, failure to thrive, hypotension renal failure on dialysis nonfunctional fistula. Request for temporary dialysis catheter as well as triple-lumen catheter for IV access. [facility] Medical History Atherosclerotic heart disease of [place] coronary artery without angina pectoris Chronic fatigue, unspecified Depression, unspecified End stage renal disease EPO-resistant anemia Heart failure, unspecified History of falling Hyperlipidemia, unspecified Hypertensive chronic kidney disease with stage 5 chronic kidney disease or end stage renal disease Iron deficiency anemia, unspecified Parkinson disease Retention of urine, unspecified Secondary hyperparathyroidism of renal origin Type 2 diabetes mellitus with diabetic chronic kidney disease Unspecified protein-calorie malnutrition Unsteadiness on feet Home Medications acetaminophen 500 mg tablet (Acetaminophen Extra Strength) 1,000 mg PO MOWEFR DISCOMFORT PRIOR TO DIALYSIS 04/27/22 [History Last Taken 04/26/22] ascorbic acid (vitamin C) 500 mg tablet 500 mg PO DAILY SUPPLEMENT 04/27/22 [History Last Taken 04/27/22] aspirin 325 mg tablet 325 mg PO [facility] 04/27/22 [History Last Taken 04/26/22] aspirin 81 mg tablet,delayed release 81 mg PO [facility] 04/27/22 [History Last Taken 04/27/22] atorvastatin 40 mg tablet 40 mg PO QHS CHOLESTEROL 04/27/22 [History Last Taken 04/27/22] cholecalciferol (vitamin D3) 50 mcg (2,000 unit) tablet (Vitamin D3) 50 mcg PO DAILY SUPPLEMENT 04/27/22 [History Last Taken 04/27/22] doxepin 50 mg capsule 50 mg PO QHS DEPRESSION 04/27/22 [History Last Taken 04/27/22] ferrous sulfate 325 mg (65 mg iron) tablet 325 mg PO DAILY SUPPLEMENT 04/27/22 [History Last Taken 04/27/22] insulin lispro 100 unit/mL subcutaneous solution (Humalog U-100 Insulin) See Protocol subcut TIDCM DIABETES 04/27/22 [History Last Taken 04/28/22] isosorbide mononitrate 30 mg tablet,extended release 24 hr 30 mg PO DAILY HEART 04/27/22 [History Last Taken 04/27/22] magnesium hydroxide 400 mg/5 mL oral suspension (Milk of Magnesia) 30 ml PO DAILY PRN Constipation 04/27/22 [History Last Taken Unknown] midodrine 10 mg tablet 10 mg PO MOWEFR DIALYSIS 04/27/22 [History Last Taken 04/26/22] mirtazapine 7.5 mg tablet 7.5 mg PO QHS APPETITE 04/27/22 [History Last Taken 04/27/22] nitroglycerin 0.4 mg sublingual tablet 0.4 mg sublingual Q5M PRN Chest Pain 04/27/22 [History Last Taken Unknown] omeprazole 20 mg capsule,delayed release 20 mg PO DAILY ACID REFLUX 04/27/22 [History Last Taken 04/27/22] oxybutynin chloride 5 mg tablet 5 mg PO BID OVERACTIVE BLADDER 04/27/22 [History Last Taken 04/27/22] potassium chloride 20 mEq tablet,extended release(part/cryst) 20 meq PO DAILY SUPPLEMENT 04/27/22 [History Last Taken 04/27/22] pramipexole 0.5 mg tablet 0.5 mg PO TID MUSCLE SPASMS 04/27/22 [History Last Taken 04/27/22] quetiapine 25 mg tablet 25 mg PO DAILY HALLUCINATIONS 04/27/22 [History Last Taken 04/27/22] quetiapine 50 mg tablet 50 mg PO QHS HALLUCINATIONS 04/27/22 [History Last Taken 04/27/22] sertraline 100 mg tablet 200 mg PO DAILY DEPRESSION 04/27/22 [History Last Taken 04/27/22] sodium hypochlorite 0.25 % solution (Dakin's Solution) 1 applic topical QHS WOUND 04/27/22 [History Last Taken 02/16/23] vitamin B complex and vitamin C no.20-folic acid 1 mg capsule (Triphrocaps) 1 cap PO LUNCH ESRD, TAKE AFTER DIALYSIS 04/27/22 [History Last Taken 04/27/22] Allergy/AdvReac Type Severity Reaction Status Date / Time amlodipine [From [facility]] Allergy PT UNSURE Verified 04/27/22 10:59 OF REACTION codeine Allergy PT UNSURE Verified 04/27/22 10:59 OF REACTION gemfibrozil Allergy PT UNSURE Verified 04/27/22 10:59 OF REACTION nifedipine Allergy PT UNSURE Verified 04/27/22 10:59 OF REACTION Social History household members: none housing: other Smoking Status: Unknown if ever smoked ROS Review of Systems ROS Unobtainable: due to mental status Physical Exam Const General Appearance: frail Nutritional Appearance: underweight HEENT normocephalic HEENT Narrative: Very poor dentition Neck Neck Narrative: Previous needle pokes present as unable to get lines yesterday. Resp normal respiratory effort Resp Narrative: On nasal cannula Cardio Rate: regular rate GI soft to palpation, non-tender and non-distended Extremity General Extremity: Negative for edema Skin no jaundice Neuro Neuro Narrative: Patient does not really follow commands unable to assess Psych Appearance: unkempt Lab / Micro Data Result Diagrams: 04/29/22 04:00 04/29/22 04:34 Labs: Laboratory Results - last 24 hr 04/28/22 11:03: WBC 7.2, RBC 3.56 L, Hgb 10.8 L, Hct 33.6 L, MCV 94.4 H, MCH 30.3, MCHC 32.1, RDW Std Deviation 57.1 H, RDW Coeff of Mallorie 16.5 H, Plt Count 111 L, MPV 9.6, Immature Gran % (Auto) 0.600, Neut % (Auto) 86.9 H, Lymph % (Auto) 6.1 L, Hood % (Auto) 5.6, Eos % (Auto) 0.7, Baso % (Auto) 0.1, Absolute Neuts (auto) 6.2, Absolute Lymphs (auto) 0.44 L, Nucleated RBC % 0, Differential Comment SCANNED 04/28/22 11:03: Sodium 141, Potassium 3.0 L, Chloride 104, Carbon Dioxide 25.0, Anion Gap 12, BUN 42 H, Creatinine 5.41 H, Estim Creat Clear Calc 11.35, Est GFR (MDRD) Af Amer 13 L, Est GFR (MDRD) Non-Af 11 L, BUN/Creatinine Ratio 7.8 L, Glucose 101, Calcium 8.7, Total Bilirubin 1.00, AST 58 H, ALT 46, Alkaline Phosphatase 114, Total Protein 5.3 L, Albumin 1.4 L, Globulin 3.9, Albumin/Globulin Ratio 0.4 L 04/28/22 11:03: Lactic Acid 2.0 04/28/22 17:42: Lactic Acid 2.4 H* 04/29/22 04:00: WBC 7.3, RBC 3.51 L, Hgb 10.8 L, Hct 32.4 L, MCV 92.3, MCH 30.8, MCHC 33.3, RDW Std Deviation 57.0 H, RDW Coeff of Mallorie 16.8 H, Plt Count 136 L, MPV 10.2, Immature Gran % (Auto) 0.800, Neut % (Auto) 90.5 H, Lymph % (Auto) 4.5 L, Hood % (Auto) 3.8, Eos % (Auto) 0.3, Baso % (Auto) 0.1, Absolute Neuts (auto) 6.6, Absolute Lymphs (auto) 0.33 L, Nucleated RBC % 0, Differential Comment SCANNED 04/29/22 04:00: Sodium Cancelled, Potassium Cancelled, Chloride Cancelled, Carbon Dioxide Cancelled, Anion Gap Cancelled, BUN Cancelled, Creatinine Cancelled, Estim Creat Clear Calc Cancelled, Est GFR (MDRD) Af Amer Cancelled, Est GFR (MDRD) Non-Af Cancelled, BUN/Creatinine Ratio Cancelled, Glucose Cancelled, Calcium Cancelled, Phosphorus Cancelled, Magnesium Cancelled 04/29/22 04:34: Sodium 143, Potassium 2.8 L, Chloride 108 H, Carbon Dioxide 24.0, Anion Gap 11, BUN 45 H, Creatinine 5.29 H, Estim Creat Clear Calc 11.20, Est GFR (MDRD) Af Amer 14 L, Est GFR (MDRD) Non-Af 11 L, BUN/Creatinine Ratio 8.5 L, Glucose 103, Calcium 8.5, Phosphorus 2.0 L, Magnesium 2.1 ABG Data ABG results: ABG 04/28/22 11:35 Specimen Type ASHLY VBG pH 7.35 VBG pO2 32 VBG HCO3 24 VBG Total CO2 26 VBG O2 Sat (Calc) 59 VBG Base Excess -1 POC Mix VBG pCO2 Pt Tmp 43.4 O2 Delivery Device NRB Rhythm Strip Rhythm Strip: Sinus Tach Rate: 104 Ectopy: PVC(s) Radiology Impression Chest X-Ray 04/28/22 11:35 IMPRESSION: Increased opacities in the mid to lower lungs bilaterally concerning for pneumonia or pneumonitis. Electronically Signed: Barbara Gomez MD at 11:48 EST , Chest X-Ray 04/28/22 17:19 IMPRESSION: There are bilateral pleural effusions. There are bilateral infiltrates. There is no pneumothorax. Electronically Signed: Babak Franco MD at 17:46 EST , Chest X-Ray 04/28/22 23:40 IMPRESSION: Worsening bilateral lingular and/or middle lobe infiltrates. Trace left effusion. Consider pneumonia. Electronically Signed: Roslyn Espana MD at 1:37 EST , Charges/Coding Visit Charges Inpatient E&M: 79357 Init Hosp L3
--- NOTE | 2022-04-29 09:35 | PCM.OPRPT ---
Report of Operation Date of Procedure: 04/29/22 Pre-Operative Diagnosis: Need for IV access/dialysis access Post-Operative Diagnosis: Same Surgery/Procedure Performed:: Insertion of right IJ temporary dialysis catheter, insertion of the left IJ triple-lumen catheter Surgeon: Rohini Blanco Type of Anesthesia: Local Estimated Blood Loss (mL): 10 cc Description of Procedure: Procedure: A time-out was completed to verify correct patient, indication, medication allergies, procedure, coagulation studies, informed consent signed?emergent, and equipment needed. The patient was placed in the supine position for a central line placement to the right IJ vein. The patients right neck was prepped using chlorhexidine and a full body sterile drape was applied. 1% lidocaine was used to anesthetize the surrounding skin. A IMAGINATE - Technovating Reality Elite 12 Dutch x20 cm (ref breath [id number] lot [id number]) Temporary hemodialysis catheter introduced into the internal jugular vein using the modified Seldinger technique with the assistance of ultrasound. The site was dilated up twice in a stepwise fashion. The catheter was threaded smoothly over the guidewire, the guidewire was removed easily, nonpulsatile blood returned. All ports were aspirated of air and flushed with sterile saline Then flushed with 1:10,000 heparin 1.3 mL to each port. The catheter was sutured in place and covered with an occlusive dressing impregnated with chlorhexidine. A triple-lumen catheter introduced into the internal jugular vein using the modified Seldinger technique with the assistance of ultrasound. The site was dilated. The catheter was threaded smoothly over the guidewire, the guidewire was removed easily, nonpulsatile blood returned. All ports were aspirated of air and flushed with sterile saline. The catheter was sutured in place and covered with an occlusive dressing impregnated with chlorhexidine. Patient tolerated procedure well and chest x-ray ordered. Complications none
[2022-04-29] MEDS: LACTATED RINGERS 500 ML 999 ML IV ×2 (09:45→20:15)
--- NOTE | 2022-04-29 09:45 | RAD_ITS ---
STUDY: X-RAY CHEST REASON FOR EXAM: Male, 76 years old. Line placement TECHNIQUE: Single AP portable view of the chest. COMPARISON: April 28, 2022 FINDINGS: Central catheter extending from right jugular region extends to the right atrium. Central catheter extending from left jugular region extends to possible duplicated superior vena cava. There is patchy left greater than right mid and lower lung consolidation. There are small pleural effusions. Normal size heart. Normal mediastinum and kelli. Normal visualized pulmonary arteries. Normal visualized aortic arch and descending thoracic aorta. Normal visualized thoracic spine. Normal visualized ribs, clavicles, and shoulders. There is no demonstrated abnormality of the visualized soft tissue structures of the upper abdomen. RAD/Chest 1 View (Portable) IMPRESSION: Catheter placement. No pneumothorax. Stable bilateral pneumonia or edema and pleural effusions. Electronically Signed: Ralf Wade MD at 10:06 EST ,
[2022-04-29] MEDS: Lactated Ringers 1,000 ML 50 ML IV ×2 (10:15→21:34)
[2022-04-29 11:46] LABS: Vancomycin, Random Level 20.5 ug/mL (0.0-15.0)
[2022-04-29 11:46] LABS: Base Excess -5 mmol/L (-2 to +2); Bicarbonate 20.1 mmol/L (22-26); Blood Gas Specimen Type ART; O2 Delivery Device Cannula; PO2 52 mmHG (75-100); SITE R Brach; SO2 87 % (95-99); Total Carbon Dioxide 21 mmol/L; pCO2 32.5 mmHg (35-45)
[2022-04-29] MEDS: 0.9% Saline Lock 10 ML Syringe IV (12:30)
--- NOTE | 2022-04-29 18:37 | CON.PCM.RE_ITS ---
Assessment & Plan Assessment/Plan (1) End stage renal failure on dialysis: (2) Hypokalemia: (3) Arteriovenous fistula occlusion: (4) Anemia in chronic kidney disease: (5) Acute hypotension: (6) Acute encephalopathy: PLAN: Plan Impression/Plan: The patient is a 76-year-old man with past history of ESRD on maintenance dialysis that [facility]. He also has a history of type 2 diabetes mellitus, Parkinson's disease, anemia, hypertension, depression, and hyperlipidemia. The patient is admitted to hospital on 04/28/2022 with altered mental status, hypotension, and thrombosis left upper arm AV access. Nephrology is following for ESRD. ESRD. The patient usually dialyzes on MWF schedule. He last dialyzed on 04/26/2022. He was not able to be dialyzed on 04/28/2022 because of thrombosis of dialysis access. There is no urgent need for dialysis today. He is actually hypokalemic. We will plan on dialyzing the patient on 05/01/2022. We appreciate Dr. Thiago anderson's help with establishing AV access in the jugular vein for dialysis. Thrombosed dialysis AV access. Unclear to me whether he has AV fistula or AV graft. We will check outpatient record. Dr. Bustillo, vascular surgery, consulted for evaluation of AV access to see if thrombectomy can be done later. Circulatory shock/hypotension. Suspect he has probable hypovolemic shock. Agree with volume expansion with LR. He is requiring low-dose IV vasopressor. The patient is also being covered for infection/septic shock with meropenem. Nephrology plan will be discussed with Dr. Sierra and ICU team. HPI Consult Data Date of Consult: 04/29/22 HPI Narrative Reason for Consultation: ESRD HPI Narrative: The patient is a 76-year-old man with past history of ESRD on maintenance dialysis that [facility]. He also has a history of type 2 diabetes mellitus, Parkinson's disease, anemia, hypertension, depression, and hyperlipidemia. The patient presented to the hospital on 04/28/2022 with altered mental status from SNF. He was found to be hypotensive, and his AV fistula which is in the left upper arm has thrombosed. Currently, the patient remains confused. He denies chest pain, shortness of breath, or nausea. There is no increasing edema of the lower extremities. He has left upper extremity edema and ecchymosis without pain on palpation. The patient usually dialyzes on a MWF schedule, but he did not get dialyzed on 04/28/2022 because of thrombosed AV access. 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 04/27/22 [History Last Taken 04/26/22] aspirin 81 mg tablet,delayed release 81 mg PO [facility] 04/27/22 [History Last Taken 04/27/22] atorvastatin 40 mg tablet 40 mg PO QHS CHOLESTEROL 04/27/22 [History Last Taken 04/27/22] cholecalciferol (vitamin D3) 50 mcg (2,000 unit) tablet (Vitamin D3) 50 mcg PO DAILY SUPPLEMENT 04/27/22 [History Last Taken 04/27/22] doxepin 50 mg capsule 50 mg PO QHS DEPRESSION 04/27/22 [History Last Taken 04/27/22] ferrous sulfate 325 mg (65 mg iron) tablet 325 mg PO DAILY SUPPLEMENT 04/27/22 [History Last Taken 04/27/22] insulin lispro 100 unit/mL subcutaneous solution (Humalog U-100 Insulin) See Protocol subcut TIDCM DIABETES 04/27/22 [History Last Taken 04/28/22] isosorbide mononitrate 30 mg tablet,extended release 24 hr 30 mg PO DAILY HEART 04/27/22 [History Last Taken 04/27/22] magnesium hydroxide 400 mg/5 mL oral suspension (Milk of Magnesia) 30 ml PO DAILY PRN Constipation 04/27/22 [History Last Taken Unknown] midodrine 10 mg tablet 10 mg PO MOWEFR DIALYSIS 04/27/22 [History Last Taken 04/26/22] mirtazapine 7.5 mg tablet 7.5 mg PO QHS APPETITE 04/27/22 [History Last Taken 04/27/22] nitroglycerin 0.4 mg sublingual tablet 0.4 mg sublingual Q5M PRN Chest Pain 04/27/22 [History Last Taken Unknown] omeprazole 20 mg capsule,delayed release 20 mg PO DAILY ACID REFLUX 04/27/22 [History Last Taken 04/27/22] oxybutynin chloride 5 mg tablet 5 mg PO BID OVERACTIVE BLADDER 04/27/22 [History Last Taken 04/27/22] potassium chloride 20 mEq tablet,extended release(part/cryst) 20 meq PO DAILY SUPPLEMENT 04/27/22 [History Last Taken 04/27/22] pramipexole 0.5 mg tablet 0.5 mg PO TID MUSCLE SPASMS 04/27/22 [History Last Taken 04/27/22] quetiapine 25 mg tablet 25 mg PO DAILY HALLUCINATIONS 04/27/22 [History Last Taken 04/27/22] quetiapine 50 mg tablet 50 mg PO QHS HALLUCINATIONS 04/27/22 [History Last Taken 04/27/22] sertraline 100 mg tablet 200 mg PO DAILY DEPRESSION 04/27/22 [History Last Taken 04/27/22] sodium hypochlorite 0.25 % solution (Dakin's Solution) 1 applic topical QHS WOUND 04/27/22 [History Last Taken 04/27/22] vitamin B complex and vitamin C no.20-folic acid 1 mg capsule (Triphrocaps) 1 cap PO LUNCH ESRD, TAKE AFTER DIALYSIS 04/27/22 [History Last Taken 04/27/22] Allergy/AdvReac Type Severity Reaction Status Date / Time amlodipine [From [facility]] Allergy PT UNSURE Verified 04/27/22 10:59 OF REACTION codeine Allergy PT UNSURE Verified 04/27/22 10:59 OF REACTION gemfibrozil Allergy PT UNSURE Verified 04/27/22 10:59 OF REACTION nifedipine Allergy PT UNSURE Verified 04/27/22 10:59 OF REACTION Social History household members: none housing: other Smoking Status: Unknown if ever smoked ROS ROS Narrative 12/19 ROS was done. ROS was limited by the patient's mental status. However, ROS is otherwise noncontributory other than what is already documented in HPI. Physical Exam Narrative Const alert and no apparent distress Constitutional Narrative: Patient appears cachectic, he is alert and oriented to person only. General Appearance: Cachectic. HEENT normocephalic, head/scalp atraumatic, hearing grossly normal bilaterally and moist oral mucous membranes Eyes PERRL, EOMs intact bilaterally and conjunctivae normal Neck supple, no JVD, thyroid normal and no carotid bruits General: trachea midline Resp normal respiratory effort, no retractions, no use of accessory muscles and clear to auscultation bilaterally Auscultation: Negative for rales, rhonchi or wheezes Cardio regular rate, regular rhythm, S1 normal heart sound, S2 normal heart sound, no murmurs, no rub and no gallops GI normal to inspection, nondistended, normoactive bowel sounds, soft to palpation, non-tender and non-distended Extremity no clubbing, cyanosis or edema. Left upper arm is edematous. AV access is thrombosed. There is no thrill or bruit. Skin no rashes or lesions noted General Skin Exam: no breakdown Neuro oriented x3, CN's II-XII intact bilaterally, moves all extremities, no focal motor deficits and no sensory deficits noted Sensorium / Orientation: awake, oriented to person and oriented to time Psych Psych Narrative: Patient exhibits mild confusion Lab / Micro Data Result Diagrams: 04/29/22 04:00 04/29/22 04:34 Labs: Laboratory Results - last 24 hr 04/28/22 17:42: Lactic Acid 2.4 H* 04/29/22 04:00: WBC 7.3, RBC 3.51 L, Hgb 10.8 L, Hct 32.4 L, MCV 92.3, MCH 30.8, MCHC 33.3, RDW Std Deviation 57.0 H, RDW Coeff of Mallorie 16.8 H, Plt Count 136 L, MPV 10.2, Immature Gran % (Auto) 0.800, Neut % (Auto) 90.5 H, Lymph % (Auto) 4.5 L, Mccreary % (Auto) 3.8, Eos % (Auto) 0.3, Baso % (Auto) 0.1, Absolute Neuts (auto) 6.6, Absolute Lymphs (auto) 0.33 L, Nucleated RBC % 0, Differential Comment SCANNED 04/29/22 04:00: Sodium Cancelled, Potassium Cancelled, Chloride Cancelled, Carbon Dioxide Cancelled, Anion Gap Cancelled, BUN Cancelled, Creatinine Cancelled, Estim Creat Clear Calc Cancelled, Est GFR (MDRD) Af Amer Cancelled, Est GFR (MDRD) Non-Af Cancelled, BUN/Creatinine Ratio Cancelled, Glucose C ancelled, Calcium Cancelled, Phosphorus Cancelled, Magnesium Cancelled 04/29/22 04:34: Sodium 143, Potassium 2.8 L, Chloride 108 H, Carbon Dioxide 24.0, Anion Gap 11, BUN 45 H, Creatinine 5.29 H, Estim Creat Clear Calc 11.20, Est GFR (MDRD) Af Amer 14 L, Est GFR (MDRD) Non-Af 11 L, BUN/Creatinine Ratio 8.5 L, Glucose 103, Calcium 8.5, Phosphorus 2.0 L, Magnesium 2.1 04/29/22 11:08: Random Vancomycin 20.5 H Micro: Microbiology 04/28/22 11:03 Blood Culture (Wb) - Right Hand Blood Culture - Preliminary ABG Data ABG results: ABG 04/29/22 09:55 Specimen Type ART Sample Site R Brach pH 7.40 Bicarbonate Actual 20.1 L Total CO2 21 Base Excess -5 L O2 Saturation 87 L ABG pCO2 32.5 L ABG pO2 52 L O2 Delivery Device Cannula Liter Flow 10.0 Rhythm Strip Rhythm Strip: Sinus Tach Rate: 104 Ectopy: PVC(s) Radiology Impression Chest X-Ray 04/28/22 23:40 IMPRESSION: Worsening bilateral lingular and/or middle lobe infiltrates. Trace left effusion. Consider pneumonia. Electronically Signed: Roslyn Espana MD at 1:37 EST , Chest X-Ray 04/29/22 09:45 IMPRESSION: Catheter placement. No pneumothorax. Stable bilateral pneumonia or edema and pleural effusions. Electronically Signed: Ralf Wade MD at 10:06 EST ,
[2022-04-29] MEDS: TITRATION PARAMETER CHANGE 1 EACH IV (21:14)
[2022-04-29] MEDS: DAKIN'S SOL HALF STRENGTH (=0.25%) 1 APPLIC TOPICAL (21:19)
--- NOTE | 2022-04-29 22:05 | RAD_ITS ---
EXAM: XR CHEST, 1 VIEW CLINICAL INDICATION: decreased SPO2 TECHNIQUE: Frontal view of the chest. This report was created using [employer] report generation technology. COMPARISON: April 28, 2022. April 27, 2022. FINDINGS: LUNGS AND PLEURAL SPACES: Persistent mild hazy opacity at the right lung base. Increased mild blunting of the lateral costophrenic angles. Mild improved inflation of the left retrocardiac lung base with mild patchy opacity. Increased right perihilar hazy opacity. No pneumothorax. No effusion. HEART: Unremarkable. Normal heart size. MEDIASTINUM: Central airways and mediastinal contour are unremarkable. BONES/JOINTS: Unremarkable. SOFT TISSUES: Unremarkable. VASCULATURE: Well-positioned large bore right jugular line, tip over the distal SVC and adequately positioned left jugular line, tip projects in the midline but the patient is rotated to the left on the current exam. Appears to be at the SVC confluence. RAD/Chest 1 View (Portable) IMPRESSION: 1. Slight increased blunting of the lateral costophrenic angles, presumably small increasing effusions. 2. Mild increased hazy opacity at the right perihilar-suprahilar region and better visualization of mild opacities in the right lung base, left perihilar region and left retrocardiac lung base. Considerations include multifocal pneumonia or asymmetric edema. Electronically Signed: Keely Jones MD at 23:25 EST ,
[2022-04-29] MEDS: Morphine 2 MG/ML Syringe IV (22:15)
[2022-04-29 23:10] LABS: Allen Test Positive; Base Excess -7 mmol/L (-2 to +2); Bicarbonate 18.3 mmol/L (22-26); Blood Gas Specimen Type ART; FI02 50; O2 Delivery Device BiPAP; PEEP 12; PO2 55 mmHG (75-100); RR 14; SITE R Radial; SO2 87 % (95-99); Total Carbon Dioxide 19 mmol/L; Vt 450; pCO2 33.9 mmHg (35-45); pH 7.34 (7.35-7.45)
[2022-04-30] VITALS (49 sets, daily range): BP systolic 65–111; BP diastolic 42–79; PULSE 113–135; RESP 13–35; TEMP 36.4–37.2; O2SAT 89–100
[2022-04-30 03:59] LABS: Absolute Lymphocyte Count 0.56 X10^3/uL (0.83-4.51); Absolute Neutrophil Count 10.7 X10^3/uL (2.0-7.7); Basophil# 0.03 X10^3/uL; Basophil% 0.3 % (0-1); Differential Indicated SCAN CRITERIA MET; Eosinophil# 0.02 X10^3/uL; Eosinophils% 0.2 % (0-5); Hematocrit 32.4 % (40-54); Hemoglobin 10.6 g/dL (13.0-16.5); Lymphocyte # 0.56 X10^3/ul (0.83-4.51); Lymphocyte % 4.7 % (19-41); Mean Corp Hgb Conc 32.7 g/dL (32-36); Mean Corpuscular Hgb 30.3 pg (27.0-32.0); Mean Corpuscular Volume 92.6 fL (80-94); Mean Platelet Vol. 9.4 fl (6.2-12.0); Monocyte# 0.58 X10^3/uL; Monocyte% 4.8 % (0-10); NRBC Flagged by Analyzer 0 % (0-5); Neutrophil # 10.65 X10^3/uL (2.7-7.7); Neutrophil % 88.8 % (47-70); POSITIVE DIFFERENTIAL YES; POSITIVE MORPHOLOGY YES; Platelet Count 129 K/mm3 (150-450); RBC Distribution Width CV 16.9 % (11.6-14.6); RBC Distribution Width SD 56.6 fl (35.1-43.9)
[2022-04-30 04:13] LABS: Anion Gap 14 (5-15); BUN 50 mg/dL (7-18); BUN/Creat Ratio 8.4 RATIO (10-20); Calcium,Total 8.4 mg/dL (8.5-10.1); Chloride 111 mmol/L (98-107); Creatinine, Serum 5.97 mg/dL (0.70-1.30); EST Glomerular Filtration Rate 10 mL/min (>60); Est Glom Filt Rate - Afr Amer 12 mL/min (>60); Estimated Creatinine Clearance 9.71 ml/min; Glucose 136 mg/dL (74-106); Potassium 4.3 mmol/L (3.5-5.1); Sodium Level 145 mmol/L (136-145)
[2022-04-30] MEDS: Heparin Injection (Vial) 5,000 UNIT/ML VIAL 5000 UNIT SC ×3 (06:00→22:07)
[2022-04-30 07:13] LABS: Differential Comment SCANNED
--- NOTE | 2022-04-30 07:23 | PCM.PN.INT ---
Assessment & Plan Assessment/Plan (1) Adult failure to thrive: (2) Arteriovenous fistula occlusion: (3) Acute respiratory failure with hypoxia: (4) End stage renal failure on dialysis: PLAN: Plan RECOMMENDATIONS: 1. Continue with empiric antibiotics 2. Hold midodrine therapy given pressor initiation 3. Obtain ABG. Possible intubation 4. Dialysis per nephrology 5. Wean oxygen as tolerated 6. Case management/social work for social issues 7. Wean levo as tolerated IMPRESSIONS: 1. Shock Unclear etiology. Patient still appears to be very volume depleted. Sepsis cannot be excluded. Agree with empiric antibiotics for now. We will discontinue midodrine therapy given initiation of pressors. Patient remains on Levophed with sinus tachycardia. Patient is noted to have gram-positive cocci on blood cultures. Await species and sensitivities. Patient is not currently taking steroids, but cannot exclude the need for stress dose steroids moving forward if pressors become significant. 2. End-stage renal disease/anemia of chronic disease/debility Nephrology has been consulted. Patient may need CVVHD moving forward. Patient appears much more pale than the blood counts suggest. We will continue to monitor daily labs and intervene as necessary. Patient with no indication for acute hemodialysis, but may need to reevaluate. 3. Acute hypoxic respiratory insufficiency Concern for aspiration by ER. Patient does not have any infiltrates at this time, but is requiring 7 L nasal cannula to maintain saturations. Patient may have decreased infiltrates secondary to severe dehydration. We will attempt some fluid resuscitation, but cannot exclude the need for intubation moving forward. May obtain a chest x-ray once patient appears euvolemic to see if infiltrates are present 4. Debility/type 2 diabetes mellitus/hyperlipidemia/failure to thrive/lack of guardianship Complicates care, management, recovery and prognosis. Sliding scale insulin likely reasonable for now. Patient will need a swallow evaluation. Patient is currently a full code, but long-term prognosis is extremely guarded. We will consult social work for potential emergency guardianship TIME: 32 minutes critical care time spent addressing patient's hypotension, hypoxic respiratory insufficiency, ESRD, review of all data and collaboration with care team Subjective Subjective Patient with some issues overnight. Patient's respiratory status was of a concern and patient was placed on BiPAP therapy. Patient remains on minimal Levophed, but has been persistently tachycardic (sinus). Patient not interacting with me this morning. Objective Data Objective Data Vital Signs: Vital Signs Temp Pulse Resp BP Pulse Ox O2 Del Method O2 Flow Rate 36.7 C 123 H 24 H 96/77 95 Bi-pap 50 04/30/22 06:00 04/30/22 07:03 04/30/22 07:03 04/30/22 07:03 04/30/22 07:03 04/30/22 07:03 04/29/22 21:00 FiO2 70 04/30/22 07:03 Oxygen Flow Rate (L/min) 50 Oxygen Delivery Method Bi-pap Weight: 67.5 kg Body Mass Index (BMI) 20.1 Intake & Output: Intake and Output for Last 24 Hours 04/28/22 04/29/22 04/30/22 23:59 23:59 23:59 Intake Total 3135 / 3135 2861.9733 / 2871.3733 73.69 / 73.69 Output Total 0 / 0 0 / 0 0 / 0 Balance 3135 / 3135 2861.9733 / 2871.3733 73.69 / 73.69 Lab / Micro Data Attestation: I reviewed the patient's lab results. Result Diagrams: 04/30/22 03:40 04/30/22 03:40 Labs: Laboratory Results - last 24 hr 04/29/22 11:08: Random Vancomycin 20.5 H 04/30/22 03:40: WBC 12.0 H, RBC 3.50 L, Hgb 10.6 L, Hct 32.4 L, MCV 92.6, MCH 30.3, MCHC 32.7, RDW Std Deviation 56.6 H, RDW Coeff of Mallorie 16.9 H, Plt Count 129 L, MPV 9.4, Immature Gran % (Auto) 1.200 H, Neut % (Auto) 88.8 H, Lymph % (Auto) 4.7 L, [place] % (Auto) 4.8, Eos % (Auto) 0.2, Baso % (Auto) 0.3, Absolute Neuts (auto) 10.7 H, Absolute Lymphs (auto) 0.56 L, Nucleated RBC % 0, Differential Comment SCANNED 04/30/22 03:40: Sodium 145, Potassium 4.3, Chloride 111 H, Carbon Dioxide 20.0 L, Anion Gap 14, BUN 50 H, Creatinine 5.97 H, Estim Creat Clear Calc 9.71, Est GFR (MDRD) Af Amer 12 L, Est GFR (MDRD) Non-Af 10 L, BUN/Creatinine Ratio 8.4 L, Glucose 136 H, Calcium 8.4 L Micro: Microbiology 04/28/22 11:03 Blood Culture (Wb) - Right Hand Blood Culture - Preliminary ABG Data ABG results: ABG 04/29/22 04/29/22 09:55 23:05 Specimen Type ART ART Sample Site R Brach R Radial pH 7.40 7.34 L Bicarbonate Actual 20.1 L 18.3 L Total CO2 21 19 Base Excess -5 L -7 L O2 Saturation 87 L 87 L O2 % 50 ABG pCO2 32.5 L 33.9 L ABG pO2 52 L 55 L Felipe Test Positive Respiration Rate 14 O2 Delivery Device Cannula BiPAP Liter Flow 10.0 Tidal Volume 450 POC PEEP 12 Radiography Diagnostic Testing: Radiology Impression Chest X-Ray 04/29/22 09:45 IMPRESSION: Catheter placement. No pneumothorax. Stable bilateral pneumonia or edema and pleural effusions. Electronically Signed: Ralf Wade MD at 10:06 EST , Chest X-Ray 04/29/22 22:05 IMPRESSION: 1. Slight increased blunting of the lateral costophrenic angles, presumably small increasing effusions. 2. Mild increased hazy opacity at the right perihilar-suprahilar region and better visualization of mild opacities in the right lung base, left perihilar region and left retrocardiac lung base. Considerations include multifocal pneumonia or asymmetric edema. Electronically Signed: Keely Jones MD at 23:25 EST , Rhythm Strip Rhythm Strip: Sinus Tach Rate: 127 Ectopy: PVC(s) Physical Exam Const Constitutional Narrative: Not really opening eyes. General Appearance: lethargic and ill appearing HEENT normocephalic and head/scalp atraumatic HEENT Narrative: Dry mucous membranes Eyes PERRL and EOMs intact bilaterally Neck full ROM and no lymphadenopathy Resp Effort and Inspection: Negative for actively coughing Auscultation: diminished lung sounds; Negative for rales, rhonchi or wheezes Percussion: Negative for dullness Cardio regular rhythm, S1 normal heart sound, S2 normal heart sound, no murmurs, no rub and no gallops Rate: tachycardic GI normal to inspection, nondistended, normoactive bowel sounds no CVA tenderness Extremity no clubbing, cyanosis or edema Extremity Narrative: No thrill noted over left upper extremity Skin no rashes or lesions noted Neuro Neuro Narrative: Not cooperative with medical exam. Spontaneous movement of all extremities. Psych Mood & Affect: flat affect Charges/Coding Procedures Hospitalists Procedures: 35336 Critial Care 1st Hr
[2022-04-30 08:11] LABS: Allen Test Positive; Base Excess -9 mmol/L (-2 to +2); Bicarbonate 16.7 mmol/L (22-26); Blood Gas Specimen Type ART; FI02 30; Mode avaps; O2 Delivery Device BiPAP; PEEP 12; PO2 72 mmHG (75-100); RR 14; SITE R Radial; SO2 94 % (95-99); Total Carbon Dioxide 18 mmol/L; Vt 450; pCO2 29.3 mmHg (35-45); pH 7.37 (7.35-7.45)
[2022-04-30] MEDS: Menthol/Lanolin/Calamine/Znox 113 GM Tube 1 APPLIC TOPICAL ×2 (10:27→22:08)
--- NOTE | 2022-04-30 10:44 | PN.HOSP_ITS ---
Reason for Visit Reason for Visit: Diagnoses Anemia in chronic kidney disease (04/28/22) Dehydration (04/28/22) Hypokalemia (04/28/22) Encephalopathy, unspecified (04/28/22) Hypotension, unspecified (04/28/22) Acute respiratory failure with hypoxia (04/28/22) End stage renal disease (04/28/22) Chronic kidney disease, unspecified (04/28/22) Adult failure to thrive (04/28/22) Unspecified foreign body in respiratory tract, part unspecified causing other injury, initial encounter (04/28/22) Other specified complication of vascular prosthetic devices, implants and grafts, initial encounter (04/28/22) Dependence on renal dialysis (04/28/22) Subjective Subjective Was seen and examined today, he is currently on BiPAP and does not respond to verbal stimuli. I talked briefly with critical care about his care, they feel the patient is probably fluid overloaded and nephrology will see the patient today. Objective Data Objective Data Vital Signs: Vital Signs Temp Pulse Resp BP Pulse Ox O2 Del Method O2 Flow Rate 97.5 F L 124 H 20 H 91/65 90 Bi-pap 50 04/30/22 08:00 04/30/22 09:00 04/30/22 09:00 04/30/22 09:00 04/30/22 10:09 04/30/22 09:00 04/29/22 21:00 FiO2 90 04/30/22 10:09 Oxygen Flow Rate (L/min) 50 Oxygen Delivery Method Bi-pap Weight: 67.5 kg Body Mass Index (BMI) 20.1 Intake & Output: Intake and Output for Last 24 Hours 04/28/22 04/29/22 04/30/22 23:59 23:59 23:59 Intake Total 3135 / 3135 2861.9733 / 2871.3733 634.99 / 634.99 Output Total 0 / 0 0 / 0 0 / 0 Balance 3135 / 3135 2861.9733 / 2871.3733 634.99 / 634.99 Lab / Micro Data Result Diagrams: 04/30/22 03:40 04/30/22 03:40 Labs: Laboratory Results - last 24 hr 04/29/22 11:08: Random Vancomycin 20.5 H 04/30/22 03:40: WBC 12.0 H, RBC 3.50 L, Hgb 10.6 L, Hct 32.4 L, MCV 92.6, MCH 30.3, MCHC 32.7, RDW Std Deviation 56.6 H, RDW Coeff of Mallorie 16.9 H, Plt Count 129 L, MPV 9.4, Immature Gran % (Auto) 1.200 H, Neut % (Auto) 88.8 H, Lymph % (Auto) 4.7 L, [place] % (Auto) 4.8, Eos % (Auto) 0.2, Baso % (Auto) 0.3, Absolute Neuts (auto) 10.7 H, Absolute Lymphs (auto) 0.56 L, Nucleated RBC % 0, Diff erential Comment SCANNED 04/30/22 03:40: Sodium 145, Potassium 4.3, Chloride 111 H, Carbon Dioxide 20.0 L , Anion Gap 14, BUN 50 H, Creatinine 5.97 H, Estim Creat Clear Calc 9.71, Est GFR (MDRD) Af Amer 12 L, Est GFR (MDRD) Non-Af 10 L, BUN/Creatinine Ratio 8.4 L, Glucose 136 H, Calcium 8.4 L Micro: Microbiology 04/28/22 11:50 Blood Culture (Wb) - Right Wrist Blood Culture - Preliminary No growth in 48 hours. 04/28/22 11:03 Blood Culture (Wb) - Right Hand Blood Culture - Preliminary Staphylococcus aureus ABG Data ABG results: ABG 04/29/22 04/29/22 04/30/22 09:55 23:05 08:03 Specimen Type ART ART ART Sample Site R Brach R Radial R Radial pH 7.40 7.34 L 7.37 Bicarbonate Actual 20.1 L 18.3 L 16.7 L Total CO2 21 19 18 Base Excess -5 L -7 L -9 L O2 Saturation 87 L 87 L 94 L O2 % 50 30 ABG pCO2 32.5 L 33.9 L 29.3 L ABG pO2 52 L 55 L 72 L Felipe Test Positive Positive Respiration Rate 14 14 O2 Delivery Device Cannula BiPAP BiPAP Liter Flow 10.0 Vent Mode avaps Tidal Volume 450 450 POC PEEP 12 12 Radiography Diagnostic Testing: Radiology Impression Chest X-Ray 04/29/22 09:45 IMPRESSION: Catheter placement. No pneumothorax. Stable bilateral pneumonia or edema and pleural effusions. Electronically Signed: Ralf Wade MD at 10:06 EST , Chest X-Ray 04/29/22 22:05 IMPRESSION: 1. Slight increased blunting of the lateral costophrenic angles, presumably small increasing effusions. 2. Mild increased hazy opacity at the right perihilar-suprahilar region and better visualization of mild opacities in the right lung base, left perihilar region and left retrocardiac lung base. Considerations include multifocal pneumonia or asymmetric edema. Electronically Signed: Keely Jones MD at 23:25 EST , Rhythm Strip Rhythm Strip: Sinus Tach Rate: 127 Ectopy: PVC(s) Physical Exam Const Constitutional Narrative: Patient response to painful stimuli, he does not carry on a conversation, he does not respond to verbal stimuli HEENT head/scalp atraumatic and moist oral mucous membranes Eyes PERRL and conjunctivae normal Neck supple and no JVD Resp normal respiratory effort, no retractions and no use of accessory muscles Resp Narrative: Breath sounds are diminished bilaterally Cardio regular rate, regular rhythm, S1 normal heart sound, S2 normal heart sound and no murmurs GI normal to inspection, nondistended, normoactive bowel sounds, soft to palpation and non-tender Extremity normal to inspection and no clubbing, cyanosis or edema Neuro CN's II-XII intact bilaterally Neuro Narrative: Patient does not respond to verbal stimuli, responds to painful stimuli Psych Psych Narrative: Patient did not respond to verbal stimuli at this time, he responds to painful stimuli Assessment & Plan Assessment/Plan (1) Debility: (2) Acute dehydration: (3) Aspiration into respiratory tract: PLAN: Plan 1. Aspiration pneumonia-continue present antibiotic coverage, pulmonary m edicine is participating in his care #2 acute hypoxic respiratory failure-patient is currently on nasal cannula O2, continue to monitor pulse ox #3 chronic psychosis-complicates care, medical recovery, management, and prognosis, patient is n.p.o. at this time #4 end-stage renal disease on dialysis-patient will be seen by nephrology, temporary dialysis catheter was placed yesterday #5 Parkinson's disease-patient will be seen by speech therapy, complicates care, medical recovery, management, and prognosis, patient is on no medication for Parkinson's at this time #6 hyperlipidemia-patient is n.p.o. presently, he is on atorvastatin at the detention, this will be held #7 hypokalemia-corrected at this time #8 possible metabolic encephalopathy-due to end-stage renal disease and multiple medical problems including chronic psychosis and suspected aspiration pneumonia Total clinical time spent by myself addressing patient's medical issues, reviewing all the data, and collaborating with patient's care team: 36 minutes Charges/Coding Visit Charges Inpatient E&M: 10640 Subs Hosp L2
[2022-04-30] MEDS: Morphine 2 MG/ML Syringe IV ×2 (14:35→20:37)
[2022-04-30] MEDS: Lactated Ringers 1,000 ML 50 ML IV (16:10)
[2022-04-30 18:21] LABS: Bedside Glucose 123 mg/dL (74-106)
--- NOTE | 2022-04-30 19:34 | PCM.PN.REN ---
Subjective Subjective Following for ESRD. The patient Objective Data Objective Data Vital Signs: Vital Signs Temp Pulse Resp BP Pulse Ox O2 Del Method O2 Flow Rate 98.7 F 132 H 19 H 100/69 97 Bi-pap 60 04/30/22 16:00 04/30/22 19:00 04/30/22 19:00 04/30/22 19:00 04/30/22 19:00 04/30/22 19:00 04/30/22 16:00 FiO2 40 04/30/22 19:00 Oxygen Flow Rate (L/min) 60 Oxygen Delivery Method Bi-pap Weight: 67.5 kg Body Mass Index (BMI) 20.1 Intake & Output: Intake and Output for Last 24 Hours 04/28/22 04/29/22 04/30/22 23:59 23:59 23:59 Intake Total 3135 / 3135 2861.9733 / 2871.3733 1229.01 / 1229.01 Output Total 0 / 0 0 / 0 0 / 0 Balance 3135 / 3135 2861.9733 / 2871.3733 1229.01 / 1229.01 Lab / Micro Data Result Diagrams: 04/30/22 03:40 04/30/22 03:40 Labs: Laboratory Results - last 24 hr 04/30/22 03:40: WBC 12.0 H, RBC 3.50 L, Hgb 10.6 L, Hct 32.4 L, MCV 92.6, MCH 30.3, MCHC 32.7, RDW Std Deviation 56.6 H, RDW Coeff of Mallorie 16.9 H, Plt Count 129 L, MPV 9.4, Immature Gran % (Auto) 1.200 H, Neut % (Auto) 88.8 H, Lymph % (Auto) 4.7 L, [place] % (Auto) 4.8, Eos % (Auto) 0.2, Baso % (Auto) 0.3, Absolute Neuts (auto) 10.7 H, Absolute Lymphs (auto) 0.56 L, Nucleated RBC % 0, Differential Comment SCANNED 04/30/22 03:40: Sodium 145, Potassium 4.3, Chloride 111 H, Carbon Dioxide 20.0 L, Anion Gap 14, BUN 50 H, Creatinine 5.97 H, Estim Creat Clear Calc 9.71, Est GFR (MDRD) Af Amer 12 L, Est GFR (MDRD) Non-Af 10 L, BUN/Creatinine Ratio 8.4 L, Glucose 136 H, Calcium 8.4 L 04/30/22 18:03: POC Glucose 123 H Micro: Microbiology 04/28/22 11:50 Blood Culture (Wb) - Right Wrist Blood Culture - Preliminary No growth in 48 hours. 04/28/22 11:03 Blood Culture (Wb) - Right Hand Blood Culture - Preliminary Staphylococcus aureus ABG Data ABG results: ABG 04/29/22 04/30/22 23:05 08:03 Specimen Type ART ART Sample Site R Radial R Radial pH 7.34 L 7.37 Bicarbonate Actual 18.3 L 16.7 L Total CO2 19 18 Base Excess -7 L -9 L O2 Saturation 87 L 94 L O2 % 50 30 ABG pCO2 33.9 L 29.3 L ABG pO2 55 L 72 L Felipe Test Positive Positive Respiration Rate 14 14 O2 Delivery Device BiPAP BiPAP Vent Mode avaps Tidal Volume 450 450 POC PEEP 12 12 Radiography Diagnostic Testing: Radiology Impression Chest X-Ray 04/29/22 22:05 IMPRESSION: 1. Slight increased blunting of the lateral costophrenic angles, presumably small increasing effusions. 2. Mild increased hazy opacity at the right perihilar-suprahilar region and better visualization of mild opacities in the right lung base, left perihilar region and left retrocardiac lung base. Considerations include multifocal pneumonia or asymmetric edema. Electronically Signed: Keely Jones MD at 23:25 EST , Rhythm Strip Rhythm Strip: Sinus Tach Rate: 127 Ectopy: PVC(s) Physical Exam Narrative Const alert and no apparent distress Neck supple, no JVD, thyroid normal and no carotid bruits General: trachea midline Resp normal respiratory effort, no retractions, no use of accessory muscles and clear to auscultation bilaterally Auscultation: Negative for rales, rhonchi or wheezes Cardio regular rate, regular rhythm, S1 normal heart sound, S2 normal heart sound, no murmurs, no rub and no gallops GI normal to inspection, nondistended, normoactive bowel sounds, soft to palpation, non-tender and non-distended Extremity no clubbing, cyanosis or edema. Left upper arm is edematous. AV access is thrombosed. There is no thrill or bruit. Assessment & Plan Assessment/Plan (1) End stage renal failure on dialysis: (2) Hypokalemia: (3) Arteriovenous fistula occlusion: (4) Anemia in chronic kidney disease: (5) Acute hypotension: (6) Acute encephalopathy: PLAN: Plan Impression/Plan: The patient is a 76-year-old man with past history of ESRD on maintenance dialysis that [facility]. He also has a history of type 2 diabetes mellitus, Parkinson's disease, anemia, hypertension, depression, and hyperlipidemia. The patient is admitted to hospital on 04/28/2022 with altered mental status, hypotension, and thrombosis left upper arm AV access. Nephrology is following for ESRD. ESRD. The patient usually dialyzes on MWF schedule. He last dialyzed on 04/26/2022. He was not able to be dialyzed on 04/28/2022 because of thrombosis of dialysis access. There is no urgent need for dialysis today. He was actually hypokalemic on presentation. There is no signs of volume overload. We will plan on dialyzing the patient on 05/01/2022. We appreciate Dr. Bassett's help with establishing AV access in the jugular vein for dialysis. Thrombosed dialysis AV access. Unclear to me whether he has AV fistula or AV graft. We will check outpatient record. Dr. Bustillo, vascular surgery, consulted for evaluation of AV access to see if thrombectomy can be done later. Circulatory shock/hypotension. Suspect he has probable hypovolemic shock. Agree with volume expansion with LR. He is requiring low-dose IV vasopressor. The patient is also being covered for infection/septic shock with meropenem. Nephrology plan will be discussed with Dr. Sierra and ICU team.
[2022-04-30] MEDS: 0.9% Saline Lock 10 ML Syringe IV (20:36)
[2022-04-30] MEDS: DAKIN'S SOL HALF STRENGTH (=0.25%) 1 APPLIC TOPICAL (22:08)
[2022-05-01] VITALS (46 sets, daily range): BP systolic 67–107; BP diastolic 49–83; PULSE 111–130; RESP 12–37; TEMP 36.6–37.7; O2SAT 87–99
[2022-05-01] MEDS: CHLORHEXIDINE GLUC 2% CLOTH 1 EACH TOWELETTE TOPICAL (04:05)
[2022-05-01 04:55] LABS: Absolute Lymphocyte Count 1.34 X10^3/uL (0.83-4.51); Absolute Neutrophil Count 9.6 X10^3/uL (2.0-7.7); Basophil# 0.02 X10^3/uL; Basophil% 0.2 % (0-1); Eosinophil# 0.02 X10^3/uL; Eosinophils% 0.2 % (0-5); Hematocrit 31.9 % (40-54); Hemoglobin 10.3 g/dL (13.0-16.5); Lymphocyte # 1.34 X10^3/ul (0.83-4.51); Lymphocyte % 11.4 % (19-41); Mean Corp Hgb Conc 32.3 g/dL (32-36); Mean Corpuscular Hgb 30.1 pg (27.0-32.0); Mean Corpuscular Volume 93.3 fL (80-94); Mean Platelet Vol. 8.8 fl (6.2-12.0); Monocyte# 0.42 X10^3/uL; Monocyte% 3.6 % (0-10); NRBC Flagged by Analyzer 0 % (0-5); Neutrophil # 9.64 X10^3/uL (2.7-7.7); Neutrophil % 82.3 % (47-70); Platelet Count 118 K/mm3 (150-450); RBC Distribution Width CV 17.7 % (11.6-14.6); RBC Distribution Width SD 60.7 fl (35.1-43.9); Red Blood Count 3.42 M/mm3 (4.6-6.2); White Blood Count 11.7 K/mm3 (4.4-11.0)
[2022-05-01 05:07] LABS: Anion Gap 13 (5-15); BUN 59 mg/dL (7-18); BUN/Creat Ratio 8.9 RATIO (10-20); Calcium,Total 8.1 mg/dL (8.5-10.1); Chloride 113 mmol/L (98-107); Creatinine, Serum 6.66 mg/dL (0.70-1.30); EST Glomerular Filtration Rate 9 mL/min (>60); Est Glom Filt Rate - Afr Amer 11 mL/min (>60); Estimated Creatinine Clearance 9.15 ml/min; Glucose 142 mg/dL (74-106); Potassium 4.9 mmol/L (3.5-5.1); Sodium Level 146 mmol/L (136-145)
[2022-05-01] MEDS: Heparin Injection (Vial) 5,000 UNIT/ML VIAL 5000 UNIT SC ×3 (06:15→21:36)
[2022-05-01] MEDS: Morphine 2 MG/ML Syringe IV (06:17)
[2022-05-01 07:16] LABS: Base Excess -7 mmol/L (-2 to +2); Bicarbonate 18.9 mmol/L (22-26); Blood Gas Specimen Type ART; FI02 90; PO2 76 mmHG (75-100); SITE R Brach; SO2 94 % (95-99); Total Carbon Dioxide 20 mmol/L; pH 7.33 (7.35-7.45)
--- NOTE | 2022-05-01 07:22 | PCM.PN.INT ---
Assessment & Plan Assessment/Plan (1) Adult failure to thrive: (2) Arteriovenous fistula occlusion: (3) Acute respiratory failure with hypoxia: (4) End stage renal failure on dialysis: PLAN: Plan RECOMMENDATIONS: 1. Continue antimicrobials as ordered. 2. Continue Levophed. Attempt to maintain a mean arterial pressure at or above 65 mmHg. 3. Obtain infectious diseases consultation. 4. Obtain echocardiogram. 5. Ongoing dialysis support per nephrology recommendations. 6. Obtain follow-up ABG this morning. 7. Wean oxygen to maintain saturations at or above 90%. 8. Consider PEG tube placement for nutritional support. IMPRESSIONS: 1. Septic shock Appears to be secondary to MRSA bacteremia. The patient has been adequately volume resuscitated and remains on empiric broad-spectrum antimicrobials. Plan to continue Levophed to maintain a mean arterial pressure at or above 65 mmHg. In light of his MRSA bacteremia, will obtain echocardiogram and infectious diseases consultation. 2. Encephalopathy Most likely metabolic in etiology. Arterial blood gas appears to be compensated. Recommend discontinuation of sedating medications, including IV morphine. 3. End-stage renal disease/anemia of chronic disease/debility The patient presented with a thrombosed dialysis IV access. In the interim, a temporary HD line has been placed. Vascular surgery has been consulted to evaluate the patient for potential thrombectomy. However, the patient will need to be continued on hemodialysis per nephrology recommendations. 4. Acute hypoxemic respiratory failure Clinical concern for an acute aspiration event. The patient is currently maintaining appropriate oxygen saturations on heated high flow. Arterial blood gas appears appropriate this morning. Recommend discontinuation of sedating medications. Speech therapy is currently following. However, given the patient's underlying mentation, he is not a candidate for p.o. intake. In light of his decompensated state in several days without nutritional support, consider PEG tube placement. 5. Debility/type 2 diabetes mellitus/hyperlipidemia/failure to thrive/lack of guardianship Complicates care, management, recovery and prognosis. Recommend considering PEG tube placement to facilitate nutritional support, if aggressive measures are going to be continued. TIME: 35 minutes of critical care time, independent of procedures, was spent addressing the patient's septic shock, encephalopathy, end-stage renal disease, acute hypoxemic respiratory failure, malnutrition, review of all data and collaboration with care team. Subjective Subjective The patient was seen and examined at the bedside this morning. Events from the last 24 hours have been reviewed. The patient is maintaining appropriate oxygen saturations on Airvo heated high flow with an FiO2 requirement of 91% and flow rate of 60 L/min. The patient was on BiPAP all night. The patient remains on Levophed at 8 mcg/min to maintain hemodynamic stability. ABG obtained this morning demonstrated a pH of 7.3 with a PCO2 of 36 and PO2 of 76. Sodium is elevated this morning at 146 with a chloride of 113, bicarbonate of 20, BUN of 59 and creatinine of 6.6. The patient is lethargic this morning. However, the patient did receive IV morphine overnight and again this morning. Overall, the patient does not have a good baseline functional status and has been without any form of nutrition for several days now. Objective Data Objective Data The patient's most recent lab work, culture data and imaging studies have all been personally reviewed. Blood culture dated April 28 was positive for MRSA. Vital Signs: Vital Signs Temp Pulse Resp BP Pulse Ox O2 Del Method O2 Flow Rate 97.9 F 123 H 16 92/61 95 Airvo 60 05/01/22 03:00 05/01/22 07:03 05/01/22 07:03 05/01/22 07:03 05/01/22 07:03 05/01/22 07:03 04/30/22 16:00 FiO2 90 05/01/22 05:08 Oxygen Flow Rate (L/min) 60 Oxygen Delivery Method Airvo Weight: 150 lb 5.684 oz Body Mass Index (BMI) 20.1 Intake & Output: Intake and Output for Last 24 Hours 04/29/22 04/30/22 05/01/22 23:59 23:59 23:59 Intake Total 2861.9733 / 2871.3733 1289.01 / 1304.01 120.75 / 120.75 Output Total 0 / 0 0 / 0 Balance 2861.9733 / 2871.3733 1289.01 / 1304.01 120.75 / 120.75 Lab / Micro Data Attestation: I reviewed the patient's lab results. Result Diagrams: 05/01/22 04:47 05/01/22 04:47 Labs: Laboratory Results - last 24 hr 04/30/22 18:03: POC Glucose 123 H 05/01/22 04:47: WBC 11.7 H, RBC 3.42 L, Hgb 10.3 L, Hct 31.9 L, MCV 93.3, MCH 30.1, MCHC 32.3, RDW Std Deviation 60.7 H, RDW Coeff of Mallorie 17.7 H, Plt Count 118 L, MPV 8.8, Immature Gran % (Auto) 2.300 H, Neut % (Auto) 82.3 H, Lymph % (Auto) 11.4 L, [place] % (Auto) 3.6, Eos % (Auto) 0.2, Baso % (Auto) 0.2, Absolute Neuts (auto) 9.6 H, Absolute Lymphs (auto) 1.34, Nucleated RBC % 0 05/01/22 04:47: Sodium 146 H, Potassium 4.9, Chloride 113 H, Carbon Dioxide 20.0 L, Anion Gap 13, BUN 59 H, Creatinine 6.66 H, Estim Creat Clear Calc 9.15, Est GFR (MDRD) Af Amer 11 L, Est GFR (MDRD) Non-Af 9 L, BUN/Creatinine Ratio 8.9 L, Glucose 142 H, Calcium 8.1 L Micro: Microbiology 04/28/22 11:50 Blood Culture (Wb) - Right Wrist Blood Culture - Preliminary No growth in 48 hours. 04/28/22 11:03 Blood Culture (Wb) - Right Hand Blood Culture - Preliminary Staphylococcus aureus ABG Data ABG results: ABG 04/30/22 05/01/22 08:03 07:11 Specimen Type ART ART Sample Site R Radial R Brach pH 7.37 7.33 L Bicarbonate Actual 16.7 L 18.9 L Total CO2 18 20 Base Excess -9 L -7 L O2 Saturation 94 L 94 L O2 % 30 90 ABG pCO2 29.3 L 36.0 ABG pO2 72 L 76 Felipe Test Positive Respiration Rate 14 O2 Delivery Device BiPAP Vent Mode avaps Tidal Volume 450 POC PEEP 12 Clinical Comments AIRVO 60LPM Radiography Diagnostic Testing: Radiology Impression Chest X-Ray 04/29/22 22:05 IMPRESSION: 1. Slight increased blunting of the lateral costophrenic angles, presumably small increasing effusions. 2. Mild increased hazy opacity at the right perihilar-suprahilar region and better visualization of mild opacities in the right lung base, left perihilar region and left retrocardiac lung base. Considerations include multifocal pneumonia or asymmetric edema. Electronically Signed: Keely Jones MD at 23:25 EST , Rhythm Strip Rhythm Strip: Sinus Tach Rate: 127 Ectopy: PVC(s) Physical Exam Const Constitutional Narrative: The patient is quite lethargic and ill in appearance. HEENT normocephalic and head/scalp atraumatic Eyes PERRL and EOMs intact bilaterally Neck supple General: trachea midline and CVC in place Chest inspection of chest normal Resp Auscultation: rhonchi and diminished lung sounds Cardio S1 normal heart sound and S2 normal heart sound Rate: tachycardic GI normal to inspection, nondistended, normoactive bowel sounds Extremity General Extremity: edema bilateral lower extremity; Negative for clubbing Skin no rashes or lesions noted Neuro no focal motor deficits Psych Mood & Affect: flat affect Charges/Coding Procedures Hospitalists Procedures: 55606 Critial Care 1st Hr
--- NOTE | 2022-05-01 09:57 | PCM.PN.REN ---
Subjective Subjective Came over to supervise CRRT. Remains obtunded, hypotensive, tachycardic. He is on Levophed drip. Has Right IJ, graft has clotted. Just started, no issues with the blood flow, blood pressure is soft. Objective Data Objective Data Vital Signs: Vital Signs Temp Pulse Resp BP Pulse Ox O2 Del Method O2 Flow Rate 97.9 F 123 H 16 92/61 95 Airvo 60 05/01/22 03:00 05/01/22 07:03 05/01/22 07:03 05/01/22 07:03 05/01/22 07:03 05/01/22 07:03 04/30/22 16:00 FiO2 90 05/01/22 05:08 Oxygen Flow Rate (L/min) 60 Oxygen Delivery Method Airvo Weight: 68.2 kg Body Mass Index (BMI) 20.1 Intake & Output: Intake and Output for Last 24 Hours 04/29/22 04/30/22 05/01/22 23:59 23:59 23:59 Intake Total 2861.9733 / 2871.3733 1289.01 / 1304.01 120.75 / 120.75 Output Total 0 / 0 0 / 0 Balance 2861.9733 / 2871.3733 1289.01 / 1304.01 120.75 / 120.75 Lab / Micro Data Attestation: I reviewed the patient's lab results. Result Diagrams: 05/01/22 04:47 05/01/22 04:47 Labs: Laboratory Results - last 24 hr 04/30/22 18:03: POC Glucose 123 H 05/01/22 04:47: WBC 11.7 H, RBC 3.42 L, Hgb 10.3 L, Hct 31.9 L, MCV 93.3, MCH 30.1, MCHC 32.3, RDW Std Deviation 60.7 H, RDW Coeff of Mallorie 17.7 H, Plt Count 118 L, MPV 8.8, Immature Gran % (Auto) 2.300 H, Neut % (Auto) 82.3 H, Lymph % (Auto) 11.4 L, [place] % (Auto) 3.6, Eos % (Auto) 0.2, Baso % (Auto) 0.2, Absolute Neuts (auto) 9.6 H, Absolute Lymphs (auto) 1.34, Nucleated RBC % 0 02/20/23 04:47: Sodium 146 H, Potassium 4.9, Chloride 113 H, Carbon Dioxide 20.0 L, Anion Gap 13, BUN 59 H, Creatinine 6.66 H, Estim Creat Clear Calc 9.15, Est GFR (MDRD) Af Amer 11 L, Est GFR (MDRD) Non-Af 9 L, BUN/Creatinine Ratio 8.9 L, Glucose 142 H, Calcium 8.1 L Micro: Microbiology 04/28/22 11:03 Blood Culture (Wb) - Right Hand Blood Culture - Preliminary Meth. resistant Staph. aureus 04/28/22 11:50 Blood Culture (Wb) - Right Wrist Blood Culture - Preliminary No growth in 48 hours. ABG Data ABG results: ABG 05/01/22 07:11 Specimen Type ART Sample Site R Brach pH 7.33 L Bicarbonate Actual 18.9 L Total CO2 20 Base Excess -7 L O2 Saturation 94 L O2 % 90 ABG pCO2 36.0 ABG pO2 76 Clinical Comments AIRVO 60LPM Radiography Diagnostic Testing: Radiology Impression Chest X-Ray 04/29/22 22:05 IMPRESSION: 1. Slight increased blunting of the lateral costophrenic angles, presumably small increasing effusions. 2. Mild increased hazy opacity at the right perihilar-suprahilar region and better visualization of mild opacities in the right lung base, left perihilar region and left retrocardiac lung base. Considerations include multifocal pneumonia or asymmetric edema. Electronically Signed: Keely Jones MD at 23:25 EST , Rhythm Strip Rhythm Strip: Sinus Tach Rate: 127 Ectopy: PVC(s) Physical Exam Const Orientation / Consciousness: lethargic HEENT normocephalic Head and Scalp: atraumatic Resp Effort and Inspection: respiratory distress Cardio Cardio Narrative: Tachycardic Edematous Acrocyanosis GI non-tender Neuro Sensorium / Orientation: lethargic Psych Memory / Cognition: cognition impaired Assessment & Plan Assessment/Plan (1) End stage renal failure on dialysis: PLAN: Seen on dialysis, unable to remove much of the fluid due to hypotension We will use Crit-Line to assist us with fluid removal
--- NOTE | 2022-05-01 11:10 | ECHOD_ITS ---
Reason For Study: MRSA Bacteremia, Eval for vegetations Procedure This was a 2D Doppler, Color Flow transthoracic echocardiogram. Exam performed portable in ICU/CCU. Left Ventricle Normal LV size. Left ventricular systolic function is normal. Stage 1 diastolic dysfunction. No regional wall motion abnormalities noted. Right Ventricle Severely dilated right ventricle. Severe global right ventricular systolic dysfunction. Atria Normal left atrium. Normal right atrium. Mitral Valve Normal mitral valve. Tricuspid Valve Normal tricuspid valve. Mild (1+) tricuspid valve insufficiency. Pulmonary artery systolic pressure is 34 mmHg. Aortic Valve Trisinus/trileaflet aortic valve. Pulmonic Valve Normal pulmonic valve. Trivial pulmonic valve insufficiency. Great Vessels Normal aortic root. The pulmonary artery is normal size. Normal inferior vena cava. Pericardium/Pleural No pericardial effusion. MMode/2D Measurements & Calculations LVIDd: 3.8 cm IVSd: 1.1 cm Ao root diam: 3.3 cm LVIDs: 1.8 cm LVPWd: 1.0 cm RVDd: 6.0 cm FS: 51.8 % LAV(MOD-bp): 10.1 ml LVAd ap4: 14.9 cm2 SV(MOD-sp4): 20.3 ml LAV(MOD-bp) Indexed: 5.4 ml/m2 LVLd ap4: 6.2 cm LAV(MOD-sp2): 11.4 ml EDV(MOD-sp4): 32.2 ml LAV(MOD-sp4): 10.0 ml EDV(sp4-el): 30.5 ml LVAs ap4: 8.5 cm2 LVLs ap4: 5.3 cm ESV(MOD-sp4): 11.9 ml ESV(sp4-el): 11.5 ml EF(MOD-sp4): 63.0 % EF(sp4-el): 62.1 % SV(sp4-el): 18.9 ml LA A4 area: 6.1 cm2 LA dimension(2D): 2.4 cm RA A4 area: 15.0 cm2 Time Measurements MV dec time: 0.20 sec Doppler Measurements & Calculations MV E max ariel: 54.3 cm/sec Lat Peak E' Ariel: 8.7 cm/sec Med Peak E' Ariel: 7.5 cm/sec MV A max ariel: 82.7 cm/sec E/E' lat: 6.2 E/E' med: 7.3 MV E/A: 0.66 Ao V2 max: 98.2 cm/sec LV V1 max: 76.1 cm/sec MV dec slope: 277.4 cm/sec2 Ao max P.9 mmHg LV V1 max P.3 mmHg Ao V2 mean: 71.0 cm/sec Ao mean P.2 mmHg Ao V2 VTI: 11.1 cm PA V2 max: 69.3 cm/sec TR max ariel: 267.5 cm/sec TR max P.6 mmHg ECHO/Echo Complete Interpretation Summary Normal LV size. Left ventricular systolic function is normal. Severely dilated right ventricle. Severe global right ventricular systolic dysfunction. Stage 1 diastolic dysfunction. Ordering Physician: Reece Thomas Referring Physician: Linda Harrison Performed By: Kiara Rodriguez, CARTER, RVT
--- NOTE | 2022-05-01 11:30 | WOUNDNOTE ---
Unable to assess sacral wound at this time d/t patient getting dialysis. will assess later today.
[2022-05-01] MEDS: Lactated Ringers 1,000 ML 50 ML IV (12:31)
--- NOTE | 2022-05-01 13:11 | PCM.CONS.GEN ---
Assessment & Plan Assessment/Plan (1) MRSA bacteremia: PLAN: septic shock due to MRSA bacteremia - on vanc/mike. Concern for aspiration on admit. Echo being done today. Will check repeat bcx. Will follow, thank you (2) End stage renal failure on dialysis: (3) Acute respiratory failure with hypoxia: HPI Consult Data Date of Consult: 05/01/22 HPI Narrative Reason for Consultation: bacteremia HPI Narrative: IZZY JERNIGAN, is a 76 M with ESRD, T2DM, presented 04/28 with altered mental status, hypoglycemia, nonfunctioning fistula. In ER, hypotensive, food was stuck in back of mouth. Admitted on vanc/zosyn to icu with levophed. Temp HD line placed. Pt unable to provide history or ROS due to encephalopathy. 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 Unspecified protein-calorie malnutrition Unsteadiness on feet Home Medications acetaminophen 500 mg tablet (Acetaminophen Extra Strength) 1,000 mg PO MOWEFR DISCOMFORT PRIOR TO DIALYSIS 04/27/22 [History Last Taken 04/26/22] ascorbic acid (vitamin C) 500 mg tablet 500 mg PO DAILY SUPPLEMENT 04/27/22 [History Last Taken 04/27/22] aspirin 325 mg tablet 325 mg PO [facility] 04/27/22 [History Last Taken 04/26/22] aspirin 81 mg tablet,delayed release 81 mg PO [facility] 04/27/22 [History Last Taken 04/27/22] atorvastatin 40 mg tablet 40 mg PO QHS CHOLESTEROL 04/27/22 [History Last Taken 04/27/22] cholecalciferol (vitamin D3) 50 mcg (2,000 unit) tablet (Vitamin D3) 50 mcg PO DAILY SUPPLEMENT 04/27/22 [History Last Taken 04/27/22] doxepin 50 mg capsule 50 mg PO QHS DEPRESSION 04/27/22 [History Last Taken 04/27/22] ferrous sulfate 325 mg (65 mg iron) tablet 325 mg PO DAILY SUPPLEMENT 04/27/22 [History Last Taken 04/27/22] insulin lispro 100 unit/mL subcutaneous solution (Humalog U-100 Insulin) See Protocol subcut TIDCM DIABETES 04/27/22 [History Last Taken 04/28/22] isosorbide mononitrate 30 mg tablet,extended release 24 hr 30 mg PO DAILY HEART 04/27/22 [History Last Taken 04/27/22] magnesium hydroxide 400 mg/5 mL oral suspension (Milk of Magnesia) 30 ml PO DAILY PRN Constipation 04/27/22 [History Last Taken Unknown] midodrine 10 mg tablet 10 mg PO MOWEFR DIALYSIS 04/27/22 [History Last Taken 04/26/22] mirtazapine 7.5 mg tablet 7.5 mg PO QHS APPETITE 04/27/22 [History Last Taken 04/27/22] nitroglycerin 0.4 mg sublingual tablet 0.4 mg sublingual Q5M PRN Chest Pain 04/27/22 [History Last Taken Unknown] omeprazole 20 mg capsule,delayed release 20 mg PO DAILY ACID REFLUX 04/27/22 [History Last Taken 04/27/22] oxybutynin chloride 5 mg tablet 5 mg PO BID OVERACTIVE BLADDER 04/27/22 [History Last Taken 04/27/22] potassium chloride 20 mEq tablet,extended release(part/cryst) 20 meq PO DAILY SUPPLEMENT 04/27/22 [History Last Taken 04/27/22] pramipexole 0.5 mg tablet 0.5 mg PO TID MUSCLE SPASMS 04/27/22 [History Last Taken 04/27/22] quetiapine 25 mg tablet 25 mg PO DAILY HALLUCINATIONS 04/27/22 [History Last Taken 04/27/22] quetiapine 50 mg tablet 50 mg PO QHS HALLUCINATIONS 04/27/22 [History Last Taken 04/27/22] sertraline 100 mg tablet 200 mg PO DAILY DEPRESSION 04/27/22 [History Last Taken 04/27/22] sodium hypochlorite 0.25 % solution (Dakin's Solution) 1 applic topical QHS WOUND 04/27/22 [History Last Taken 04/27/22] vitamin B complex and vitamin C no.20-folic acid 1 mg capsule (Triphrocaps) 1 cap PO LUNCH ESRD, TAKE AFTER DIALYSIS 04/27/22 [History Last Taken 04/27/22] Allergy/AdvReac Type Severity Reaction Status Date / Time amlodipine [From [facility]] Allergy PT UNSURE Verified 04/27/22 10:59 OF REACTION codeine Allergy PT UNSURE Verified 04/27/22 10:59 OF REACTION gemfibrozil Allergy PT UNSURE Verified 04/27/22 10:59 OF REACTION nifedipine Allergy PT UNSURE Verified 04/27/22 10:59 OF REACTION Social History household members: none housing: other Smoking Status: Unknown if ever smoked Physical Exam Const Constitutional Narrative: unintelligible moaning General Appearance: lethargic; Negative for cooperative HEENT normocephalic and head/scalp atraumatic Eyes PERRL Neck supple and No nodes Resp normal air movement and clear to auscultation bilaterally Cardio regular rate and regular rhythm GI soft to palpation, non-tender and non-distended Extremity General Extremity: edema Skin no rashes or lesions noted Neuro Neuro Narrative: not following commands Lab / Micro Data Attestation: I reviewed the patient's lab results. Result Diagrams: 05/01/22 04:47 05/01/22 04:47 Labs: Laboratory Results - last 24 hr 04/30/22 18:03: POC Glucose 123 H 05/01/22 04:47: WBC 11.7 H, RBC 3.42 L, Hgb 10.3 L, Hct 31.9 L, MCV 93.3, MCH 30.1, MCHC 32.3, RDW Std Deviation 60.7 H, RDW Coeff of Mallorie 17.7 H, Plt Count 118 L, MPV 8.8, Immature Gran % (Auto) 2.300 H, Neut % (Auto) 82.3 H, Lymph % (Auto) 11.4 L, [place] % (Auto) 3.6, Eos % (Auto) 0.2, Baso % (Auto) 0.2, Absolute Neuts (auto) 9.6 H, Absolute Lymphs (auto) 1.34, Nucleated RBC % 0 05/01/22 04:47: Sodium 146 H, Potassium 4.9, Chloride 113 H, Carbon Dioxide 20.0 L, Anion Gap 13, BUN 59 H, Creatinine 6.66 H, Estim Creat Clear Calc 9.15, Est GFR (MDRD) Af Amer 11 L, Est GFR (MDRD) Non-Af 9 L, BUN/Creatinine Ratio 8.9 L, Glucose 142 H, Calcium 8.1 L Micro: Microbiology 04/28/22 11:03 Blood Culture (Wb) - Right Hand Blood Culture - Preliminary Meth. resistant Staph. aureus 04/28/22 11:50 Blood Culture (Wb) - Right Wrist Blood Culture - Preliminary No growth in 48 hours. ABG Data ABG results: ABG 05/01/22 07:11 Specimen Type ART Sample Site R Brach pH 7.33 L Bicarbonate Actual 18.9 L Total CO2 20 Base Excess -7 L O2 Saturation 94 L O2 % 90 ABG pCO2 36.0 ABG pO2 76 Clinical Comments AIRVO 60LPM Rhythm Strip Rhythm Strip: Sinus Tach Rate: 127 Ectopy: PVC(s) Radiology Impression Chest X-Ray 04/29/22 22:05 IMPRESSION: 1. Slight increased blunting of the lateral costophrenic angles, presumably small increasing effusions. 2. Mild increased hazy opacity at the right perihilar-suprahilar region and better visualization of mild opacities in the right lung base, left perihilar region and left retrocardiac lung base. Considerations include multifocal pneumonia or asymmetric edema. Electronically Signed: Keely Jones MD at 23:25 EST ,
--- NOTE | 2022-05-01 13:17 | DIALYSIS ---
Hemodialysis x3 hours completed at 1250 on a 2K bath, tolerated fair, on Levophed, UF 0mL, CritLine maintained profile A, SBP 80s, ok to run even today per nephrology, post BP 96/63, accessed via right neck temporary dialysis catheter, worked well with lines reversed due to sticky pull arterial port (feels positional with respirations), AVF LFA, no bruit no thrill noted, report to [employer]
--- NOTE | 2022-05-01 13:20 | CASEMGMT ---
Social Work Telephone call to [facility] medical social consultant, Erica. This web content & social media manager inquiring about further guardianship processes/status. Erica reports to have submitted for emergency guardianship through [facility] a few months ago. Erica states to have mailed application and to have not heard anything further about the case. Erica states to have sent an e-mail to the court but to have not heard anything back. Erica states they must have dropped the case. This web content & social media manager inquired further as to supports for patient. Erica plan so reach out to patient pervious neighbor, Billy to see if there are any family members or other supports. This web content & social media manager attempted to contact [facility] [address], Court is closed today due to Presidents Day. Medical team updated on above. Social Work to continue to follow. Jose KAY, LUCIANO
--- NOTE | 2022-05-01 13:49 | PCM.RX.CS ---
Consult Pharmacy has been consulted to manage selected antiobiotic: Vancomycin Type of Consult: Follow-up Prior Doses of Antibiotics Received/Current Regimen: Medications Discontinued Medications Vancomycin HCl 1,750 mg/ (Sodium Chloride) 535 mls @ 250 mls/hr IV X1 ONE Stop: 04/28/22 13:52 Last Admin: 04/28/22 14:58 Dose: Infused Labs: Sodium 146 mmol/L (136-145) H 05/01/22 04:47 Potassium 4.9 mmol/L (3.5-5.1) 05/01/22 04:47 Chloride 113 mmol/L (98-107) H 05/01/22 04:47 Carbon Dioxide 20.0 mmol/L (21.0-32.0) L 05/01/22 04:47 Anion Gap 13 (5-15) 05/01/22 04:47 BUN 59 mg/dL (7-18) H 05/01/22 04:47 Creatinine 6.66 mg/dL (0.70-1.30) H 05/01/22 04:47 Est GFR (MDRD) Af Amer 11 mL/min (>60) L 05/01/22 04:47 Est GFR (MDRD) Non-Af 9 mL/min (>60) L 05/01/22 04:47 BUN/Creatinine Ratio 8.9 RATIO (10-20) L 05/01/22 04:47 Glucose 142 mg/dL (74-106) H 05/01/22 04:47 Random Vancomycin 20.5 ug/mL (0.0-15.0) H 04/29/22 11:08 Microbiology: Microbiology 04/28/22 11:03 Blood Culture (Wb) - Right Hand Blood Culture - Preliminary Meth. resistant Staph. aureus 04/28/22 11:50 Blood Culture (Wb) - Right Wrist Blood Culture - Preliminary No growth in 48 hours. Weight used for dosin kg Estimated Creatinine Clearance: Dialysis Goal Trough: 15-20 mcg/mL Pharmacy Plan for Drug Dosing: Patient is typically MWF dialysis. No documented dialysis sessions since admission. Initially received vancomycin 1750mg IV x1 on 04/28. Finished dialysis session today, 05/01, per policy will order 500mg IV x1. Random level before Sunday session. Pharmacy Service will continue to monitor and adjust dosing as required. Follow-Up Labs: Trough Vancomycin - 05/03 Random a.m. Level
[2022-05-01] MEDS: Menthol/Lanolin/Calamine/Znox 113 GM Tube 1 APPLIC TOPICAL ×2 (13:58→21:36)
[2022-05-01] MEDS: Vancomycin IV 500 MG/100 ML BAG 100 MG IV (14:41)
--- NOTE | 2022-05-01 15:11 | PN.HOSP_ITS ---
Reason for Visit Reason for Visit: Diagnoses Methicillin resistant Staphylococcus aureus infection as the cause of diseases classified elsewhere (04/28/22) Anemia in chronic kidney disease (04/28/22) Dehydration (04/28/22) Hypokalemia (04/28/22) Encephalopathy, unspecified (04/28/22) Hypotension, unspecified (04/28/22) Acute respiratory failure with hypoxia (04/28/22) End stage renal disease (04/28/22) Chronic kidney disease, unspecified (04/28/22) Other malaise (04/28/22) Adult failure to thrive (04/28/22) Bacteremia (04/28/22) Unspecified foreign body in respiratory tract, part unspecified causing other injury, initial encounter (04/28/22) Other specified complication of vascular prosthetic devices, implants and grafts, initial encounter (04/28/22) Dependence on renal dialysis (04/28/22) Subjective Subjective Patient seen and examined. He was undergoing dialysis. He was somnolent and unresponsive to voice. Unable to do review of systems. He is tachycardic and is hypotensive. Objective Data Objective Data Vital Signs: Vital Signs Temp Pulse Resp BP Pulse Ox O2 Del Method O2 Flow Rate 99.2 F H 111 H 19 H 84/69 L 97 Airvo 60 05/01/22 12:00 05/01/22 12:15 05/01/22 12:00 05/01/22 12:15 05/01/22 12:00 05/01/22 12:00 05/01/22 12:00 FiO2 90 05/01/22 12:00 Oxygen Flow Rate (L/min) 60 Oxygen Delivery Method Airvo Weight: 150 lb 5.684 oz Body Mass Index (BMI) 20.1 Intake & Output: Intake and Output for Last 24 Hours 04/29/22 04/30/22 05/01/22 23:59 23:59 23:59 Intake Total 2861.9733 / 2871.3733 1289.01 / 1304.01 1207.88 / 1207.88 Output Total 0 / 0 0 / 0 0 / 0 Balance 2861.9733 / 2871.3733 1289.01 / 1304.01 1207.88 / 1207.88 Lab / Micro Data Result Diagrams: 05/01/22 04:47 05/01/22 04:47 Labs: Laboratory Results - last 24 hr 04/30/22 18:03: POC Glucose 123 H 05/01/22 04:47: WBC 11.7 H, RBC 3.42 L, Hgb 10.3 L, Hct 31.9 L, MCV 93.3, MCH 30.1, MCHC 32.3, RDW Std Deviation 60.7 H, RDW Coeff of Mallorie 17.7 H, Plt Count 118 L, MPV 8.8, Immature Gran % (Auto) 2.300 H, Neut % (Auto) 82.3 H, Lymph % (Auto) 11.4 L, [place] % (Auto) 3.6, Eos % (Auto) 0.2, Baso % (Auto) 0.2, Absolute Neuts (auto) 9.6 H, Absolute Lymphs (auto) 1.34, Nucleated RBC % 0 05/01/22 04:47: Sodium 146 H, Potassium 4.9, Chloride 113 H, Carbon Dioxide 20.0 L, Anion Gap 13, BUN 59 H, Creatinine 6.66 H, Estim Creat Clear Calc 9.15, Est GFR (MDRD) Af Amer 11 L, Est GFR (MDRD) Non-Af 9 L, BUN/Creatinine Ratio 8.9 L, Glucose 142 H, Calcium 8.1 L Micro: Microbiology 04/28/22 11:03 Blood Culture (Wb) - Right Hand Blood Culture - Preliminary Meth. resistant Staph. aureus 04/28/22 11:50 Blood Culture (Wb) - Right Wrist Blood Culture - Preliminary No growth in 48 hours. ABG Data ABG results: ABG 05/01/22 07:11 Specimen Type ART Sample Site R Brach pH 7.33 L Bicarbonate Actual 18.9 L Total CO2 20 Base Excess -7 L O2 Saturation 94 L O2 % 90 ABG pCO2 36.0 ABG pO2 76 Clinical Comments AIRVO 60LPM Radiography Diagnostic Testing: Radiology Impression Chest X-Ray 04/29/22 22:05 IMPRESSION: 1. Slight increased blunting of the lateral costophrenic angles, presumably small increasing effusions. 2. Mild increased hazy opacity at the right perihilar-suprahilar region and better visualization of mild opacities in the right lung base, left perihilar region and left retrocardiac lung base. Considerations include multifocal pneumonia or asymmetric edema. Electronically Signed: Keely Jones MD at 23:25 EST , Echocardiogram 05/01/22 11:10 Interpretation Summary Normal LV size. Left ventricular systolic function is normal. Severely dilated right ventricle. Severe global right ventricular systolic dysfunction. Stage 1 diastolic dysfunction. Ordering Physician: Reece Thomas Referring Physician: Linda Harrison Performed By: Kiara Rodriguez, CARTER, RVT Rhythm Strip Rhythm Strip: Sinus Tach Rate: 127 Ectopy: PVC(s) Physical Exam Const Constitutional Narrative: patient lethargic, moving limbs spontaneously HEENT head/scalp atraumatic HEENT Narrative: dry oral mucosal membranes Head and Scalp: normocephalic Mouth: dry mucous membranes Eyes PERRL and EOMs intact bilaterally Neck no lymphadenopathy Resp Resp Narrative: diminished breath sounds bibasally, no wheezes or crackles. On AirVO Cardio regular rate, regular rhythm, S1 normal heart sound, S2 normal heart sound and no murmurs GI normal to inspection, nondistended, normoactive bowel sounds, soft to palpation, non-tender and non-distended Extremity normal to inspection Extremity Narrative: moving extremities spontaneously Neuro Neuro Narrative: on AirVo, very lethargic, minimally responsive. Moves limbs spontaneously Assessment & Plan Assessment/Plan (1) Acute dehydration: (2) Aspiration into respiratory tract: (3) Adult failure to thrive: (4) Acute hypotension: (5) Acute encephalopathy: PLAN: #Acute hypoxic respiratory failure due to aspiration pneumonia * on IV antibiotics * currently on AirVo. * critical care on board * titrate oxygen to maintain sats >90% * continue vancomycin and meropenem * breathing treatment with bronchodilators * ID on board. * #Septic shock due to aspiration pneumonia * Currently on Levophed. Titrate to maintain MAP more than 65. * ID consulted. * Thought to be due to MRSA bacteremia. 2D echo ordered. * #ESRD: * having dialysis today. Nephrology on board. * Had a thrombosed dialysis IV access. Has had temporary dialysis catheter placed. * Vascular surgery consulted for possible thrombectomy. #Acute metabolic encephalopathy * due to aspiration pneumonia and respiratory failure. * will monitor * #Nutrition: Currently NPO. On tube feeds. Consider PEG tube placement. DVT prophylaxis; heparin. Total time spent in seeing patient, reviewing chart, evaluation and management as well as documentation: 50 minutes. (6) Acute respiratory failure with hypoxia: Charges/Coding Visit Charges Inpatient E&M: 54968 [facility] Hosp L3
--- NOTE | 2022-05-01 15:13 | WOUNDNOTE ---
wound photo: sacrum
--- NOTE | 2022-05-01 16:30 | EX.PCM.CON.S ---
Assessment & Plan Assessment/Plan (1) Arteriovenous fistula occlusion: PLAN: -by exam appears to be [place] vein fistula;thrombectomy unfortunately doesnt usually return satisfactory result -would most likely need new access -given current overall clinical picture would not pursue at this time; if he improves would discuss options -will follow HPI Consult Data Date of Consult: 05/01/22 HPI Narrative HPI Narrative: IZZY JERNIGAN, is a 76 M who presents with altered mental status and nonfunctioning left forearm fistula. He most recently had dialysis approximately 2 days prior to presentation at which point his fistula is working. It is unknown how long he had his fistula or if it was having any subtle issues prior to presentation. Since admission he has been fully nonverbal only moaning spontaneously. Her next of kin can further assist with his history. Given the location of his surgical incisions and the access site this appears to be a radiocephalic fistula palpable graft is felt below the skin. Currently has a IJ dialysis catheter through which he is receiving his dialysis since admission. He has global edema but not particularly worse in any of his extremities. 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 Unspecified protein-calorie malnutrition Unsteadiness on feet Home Medications acetaminophen 500 mg tablet (Acetaminophen Extra Strength) 1,000 mg PO MOWEFR DISCOMFORT PRIOR TO DIALYSIS 04/27/22 [History Last Taken 04/26/22] ascorbic acid (vitamin C) 500 mg tablet 500 mg PO DAILY SUPPLEMENT 04/27/22 [History Last Taken 04/27/22] aspirin 325 mg tablet 325 mg PO [facility] 04/27/22 [History Last Taken 04/26/22] aspirin 81 mg tablet,delayed release 81 mg PO [facility] 04/27/22 [History Last Taken 04/27/22] atorvastatin 40 mg tablet 40 mg PO QHS CHOLESTEROL 04/27/22 [History Last Taken 04/27/22] cholecalciferol (vitamin D3) 50 mcg (2,000 unit) tablet (Vitamin D3) 50 mcg PO DAILY SUPPLEMENT 04/27/22 [History Last Taken 04/27/22] doxepin 50 mg capsule 50 mg PO QHS DEPRESSION 04/27/22 [History Last Taken 04/27/22] ferrous sulfate 325 mg (65 mg iron) tablet 325 mg PO DAILY SUPPLEMENT 04/27/22 [History Last Taken 04/27/22] insulin lispro 100 unit/mL subcutaneous solution (Humalog U-100 Insulin) See Protocol subcut TIDCM DIABETES 04/27/22 [History Last Taken 04/28/22] isosorbide mononitrate 30 mg tablet,extended release 24 hr 30 mg PO DAILY HEART 04/27/22 [History Last Taken 04/27/22] magnesium hydroxide 400 mg/5 mL oral suspension (Milk of Magnesia) 30 ml PO DAILY PRN Constipation 04/27/22 [History Last Taken Unknown] midodrine 10 mg tablet 10 mg PO MOWEFR DIALYSIS 04/27/22 [History Last Taken 04/26/22] mirtazapine 7.5 mg tablet 7.5 mg PO QHS APPETITE 04/27/22 [History Last Taken 04/27/22] nitroglycerin 0.4 mg sublingual tablet 0.4 mg sublingual Q5M PRN Chest Pain 04/27/22 [History Last Taken Unknown] omeprazole 20 mg capsule,delayed release 20 mg PO DAILY ACID REFLUX 04/27/22 [History Last Taken 04/27/22] oxybutynin chloride 5 mg tablet 5 mg PO BID OVERACTIVE BLADDER 04/27/22 [History Last Taken 04/27/22] potassium chloride 20 mEq tablet,extended release(part/cryst) 20 meq PO DAILY SUPPLEMENT 04/27/22 [History Last Taken 04/27/22] pramipexole 0.5 mg tablet 0.5 mg PO TID MUSCLE SPASMS 04/27/22 [History Last Taken 04/27/22] quetiapine 25 mg tablet 25 mg PO DAILY HALLUCINATIONS 04/27/22 [History Last Taken 04/27/22] quetiapine 50 mg tablet 50 mg PO QHS HALLUCINATIONS 04/27/22 [History Last Taken 04/27/22] sertraline 100 mg tablet 200 mg PO DAILY DEPRESSION 04/27/22 [History Last Taken 04/27/22] sodium hypochlorite 0.25 % solution (Dakin's Solution) 1 applic topical QHS WOUND 04/27/22 [History Last Taken 04/27/22] vitamin B complex and vitamin C no.20-folic acid 1 mg capsule (Triphrocaps) 1 cap PO LUNCH ESRD, TAKE AFTER DIALYSIS 04/27/22 [History Last Taken 04/27/22] Allergy/AdvReac Type Severity Reaction Status Date / Time amlodipine [From [facility]] Allergy PT UNSURE Verified 04/27/22 10:59 OF REACTION codeine Allergy PT UNSURE Verified 04/27/22 10:59 OF REACTION gemfibrozil Allergy PT UNSURE Verified 04/27/22 10:59 OF REACTION nifedipine Allergy PT UNSURE Verified 04/27/22 10:59 OF REACTION Social History household members: none housing: other Smoking Status: Unknown if ever smoked ROS Review of Systems ROS Unobtainable: due to mental status Physical Exam Const General Appearance: ill appearing and grossly edematous Orientation / Consciousness: awake Exam Limitations: altered mental status HEENT Head and Scalp: normocephalic and atraumatic Neck full ROM General: trachea midline Resp Effort and Inspection: labored; Negative for stridor or audible wheezes Cardio regular rhythm Rate: tachycardic Peripheral Pulses: brachial pulses present and radial pulses present; Negative for popliteal pulses present, posterior tibial pulses present or dorsalis pedis pulses present Back/Spine Cervical Spine: cervical ROM normal Extremity full ROM and normal capillary refill Extremity Narrative: no thrill in fistula General Extremity: AV fistula and edema Skin General Skin Exam: ecchymosis Neuro Sensorium / Orientation: awake Psych thought process normal, cooperative, affect normal, speech normal and activity/motor behavior normal Lab / Micro Data Result Diagrams: 05/01/22 04:47 05/01/22 04:47 Labs: Laboratory Results - last 24 hr 04/30/22 18:03: POC Glucose 123 H 05/01/22 04:47: WBC 11.7 H, RBC 3.42 L, Hgb 10.3 L, Hct 31.9 L, MCV 93.3, MCH 30.1, MCHC 32.3, RDW Std Deviation 60.7 H, RDW Coeff of Mallorie 17.7 H, Plt Count 118 L, MPV 8.8, Immature Gran % (Auto) 2.300 H, Neut % (Auto) 82.3 H, Lymph % (Auto) 11.4 L, [place] % (Auto) 3.6, Eos % (Auto) 0.2, Baso % (Auto) 0.2, Absolute Neuts (auto) 9.6 H, Absolute Lymphs (auto) 1.34, Nucleated RBC % 0 05/01/22 04:47: Sodium 146 H, Potassium 4.9, Chloride 113 H, Carbon Dioxide 20.0 L, Anion Gap 13, BUN 59 H, Creatinine 6.66 H, Estim Creat Clear Calc 9.15, Est GFR (MDRD) Af Amer 11 L, Est GFR (MDRD) Non-Af 9 L, BUN/Creatinine Ratio 8.9 L, Glucose 142 H, Calcium 8.1 L Micro: Microbiology 04/28/22 11:03 Blood Culture (Wb) - Right Hand Blood Culture - Preliminary Meth. resistant Staph. aureus ABG Data ABG results: ABG 05/01/22 07:11 Specimen Type ART Sample Site R Brach pH 7.33 L Bicarbonate Actual 18.9 L Total CO2 20 Base Excess -7 L O2 Saturation 94 L O2 % 90 ABG pCO2 36.0 ABG pO2 76 Clinical Comments AIRVO 60LPM Rhythm Strip Rhythm Strip: Sinus Tach Rate: 127 Ectopy: PVC(s) Radiology Impression Chest X-Ray 04/29/22 22:05 IMPRESSION: 1. Slight increased blunting of the lateral costophrenic angles, presumably small increasing effusions. 2. Mild increased hazy opacity at the right perihilar-suprahilar region and better visualization of mild opacities in the right lung base, left perihilar region and left retrocardiac lung base. Considerations include multifocal pneumonia or asymmetric edema. Electronically Signed: Keely Jones MD at 23:25 EST , Echocardiogram 05/01/22 11:10 Interpretation Summary Normal LV size. Left ventricular systolic function is normal. Severely dilated right ventricle. Severe global right ventricular systolic dysfunction. Stage 1 diastolic dysfunction. Ordering Physician: Reece Thomas Referring Physician: Linda Harrison Performed By: Kiara Rodriguez, CARTER, RVT Charges/Coding Visit Charges Inpatient E&M: 57282 Init Hosp L2
[2022-05-02] VITALS (14 sets, daily range): BP systolic 63–112; BP diastolic 41–67; PULSE 45–130; RESP 8–43; TEMP 37.2; O2SAT 46–97; BMI 21.5
[2022-05-02 03:37] LABS: Hematocrit 34.6 % (40-54); Hemoglobin 10.6 g/dL (13.0-16.5); Mean Corp Hgb Conc 30.6 g/dL (32-36); Mean Corpuscular Hgb 30.3 pg (27.0-32.0); Mean Corpuscular Volume 98.9 fL (80-94); Mean Platelet Vol. 10.1 fl (6.2-12.0); POSITIVE COUNT YES; POSITIVE MORPHOLOGY YES; Platelet Count 111 K/mm3 (150-450); RBC Distribution Width CV 18.3 % (11.6-14.6); RBC Distribution Width SD 65.7 fl (35.1-43.9); White Blood Count 11.4 K/mm3 (4.4-11.0)
[2022-05-02] MEDS: Amiodarone 360 MG in Dextrose 5% Viaflo Bag 192.8 ML 33.3 MG CONT INF (03:45)
[2022-05-02 03:52] LABS: Anion Gap 17 (5-15); BUN 26 mg/dL (7-18); Calcium,Total 7.2 mg/dL (8.5-10.1); Chloride 110 mmol/L (98-107); Creatinine, Serum 3.69 mg/dL (0.70-1.30); EST Glomerular Filtration Rate 17 mL/min (>60); Est Glom Filt Rate - Afr Amer 21 mL/min (>60); Estimated Creatinine Clearance 16.69 ml/min; Glucose 63 mg/dL (74-106); Potassium 5.3 mmol/L (3.5-5.1); Sodium Level 143 mmol/L (136-145)
[2022-05-02 04:00] LABS: Differential Indicated MANUAL DIFF
[2022-05-02 04:05] LABS: International Normalized Ratio 1.4; Prothrombin Time (Protime)PT. 16.4 SECONDS (11.7-14.9)
--- NOTE | 2022-05-02 04:11 | RAD_ITS ---
STUDY: X-RAY CHEST REASON FOR EXAM: Male, 76 years old. ETT placement TECHNIQUE: Single AP portable view of the chest. COMPARISON: 04/28/2022 chest x-ray FINDINGS: There is a left-sided internal jugular venous line the tip may be in an accessory vein or the azygos. There is a right-sided central line tip is in superior vena cava. There is a diffuse groundglass pattern in the left lung, right upper lobe and right lower lobe. There is an endotracheal tube present 5.5 cm above the luis enrique. Normal size heart. Normal mediastinum and kelli. Normal visualized pulmonary arteries. There is atherosclerotic tortuosity of the aortic arch and descending thoracic aorta. There are diffuse degenerative changes of the visualized thoracic spine. Normal visualized ribs, clavicles, and shoulders. There is no demonstrated abnormality of the visualized soft tissue structures of the upper abdomen. RAD/Chest 1 View (Portable) IMPRESSION: Endotracheal tube slightly high 5.5 cm above the luis enrique could be advanced 2 cm. Persistent placement of the left-sided internal jugular venous line which may be an accessory vein. Right-sided internal jugular venous line the tip is in the superior vena cava. Findings suspicious for multifocal pneumonia. Consider possible atypical pneumonia possibly viral pneumonia. Electronically Signed: Roslyn Espana MD at 5:20 EST ,
--- NOTE | 2022-05-02 04:25 | PCM.CODE.SUM ---
Arsalan Dunbar Report Code Juno Summary Code Juno Summary: ARSALAN DUNBAR called at 310. After patient was turned for hygiene he went into pulseless V. tach. See code note on chart.Spoke with next of kin Billy At 3:32 AM regarding status and prognosis, at that time it was relayed that they wanted everything done. ROSC was achieved several times however was sustained at 3:54 AM.Patient started on amnio drip after receiving amnio bolus during the code as well as fluids. Spoke with next of kin Billy regarding code and current status and after discussing Billy opted to make Mr. Roberts a DNR but wanted us to continue current management and that she was on her way. Intubation At 3:22 AM 05/02/2022 Indication: ARSALAN DUNBAR, intubated emergently Intubated emergently during code. Initially bag Valve mask well supplies and GlideScope were obtained. Direct laryngoscopy was then performed using a MAC blade. A 7.5 mm endotracheal tube was visualized advancing between the cords to the level of 23 cm at the lip. The stylette was then removed and discarded. Tube placement was confirmed by fogging in the tube along with equal and bilateral breath sounds. Colorimetric change was visualized on the CO2 meter. The cuff was then inflated and the tube secured using a commercially available device. Patient achieved ROSC A portable chest x-ray has been ordered to confirm appropriate placement but breath sounds were appreciated bilaterally.
[2022-05-02 04:50] LABS: Base Excess -21 mmol/L (-2 to +2); Bicarbonate 11.6 mmol/L (22-26); Blood Gas Specimen Type ART; FI02 100; Mode AC; O2 Delivery Device Adult Vent; PEEP 5; PO2 53 mmHG (75-100); RR 14; SITE L Radial; SO2 65 % (95-99); Total Carbon Dioxide 13 mmol/L; Vt 450; pCO2 52.4 mmHg (35-45); pH 6.95 (7.35-7.45)
[2022-05-02 05:41] LABS: Anisocytosis 2+; Macrocytosis 1+; Platelet Estimate SLT DEC (ADEQ)
[2022-05-02 05:43] LABS: Absolute Lymphocyte Count 1.71 X10^3/uL (0.83-4.51); Absolute Neutrophil Count 8.8 X10^3/uL (2.0-7.7); Lymphocyte 15 % (19-41); Monocyte 5 % (0-10); Myelocyte 3 % (0-0); Neutrophil-Band 3 % (0-5); Neutrophil-Segmented 74 % (47-70); Total Cells Counted 100 (MANUAL DIFF)
--- NOTE | 2022-05-02 07:03 | PCM.DEATH ---
Preliminary Cause of Preliminary Cause of Preliminary Cause of : Septic shock Date of Admission: 04/28/22 Date of : 05/02/22 Principle Diagnosis Septic shock Problem List: Active and Suspected Problems (Updated 05/01/22 @ 13:[address] Shoaib Balbuena MD) MRSA bacteremia (Acute) Hypokalemia (Acute) Need for intravenous access (Acute) Acute dehydration (Acute) Debility (Acute) Adult failure to thrive (Acute) Aspiration into respiratory tract (Acute) Acute hypotension (Acute) Arteriovenous fistula occlusion (Acute) Acute encephalopathy (Acute) Acute respiratory failure with hypoxia (Acute) End stage renal failure on dialysis (Acute) Hospital Course Per HPI 04/28 IZZY JERNIGAN, is a 76 M who presents to the emergency room at [facility] after being transferred from a local extended care facility at which he resides due to declining overall status including increased confusion and difficulty with oral intake.? Patient has history of chronic psychosis and Parkinson's disease, he is also a chronic dialysis patient, there is no one to make any decisions for the patient he has no power of sports attorney and his nearest relative is his sister who has autism and is unable to make any decisions concerning his health care.? The intermediate facility at which the patient resides is attempting to get a guardian appointed for the patient but this has not been carried out yet.? Patient was not able to be dialyzed today due to the fact his fistula clotted off. Evaluation in the emergency room revealed the patient to be minimally responsive, according to the emergency room physician, he suctioned food and debris out of the patient's oral cavity, patient was placed on supplemental oxygen and labs were obtained, white blood cell count was 7.2, hemoglobin was 10.8, venous blood gas showed a pH of 7.35, patient's CHEM panel revealed a potassium of 3, creatinine was 5.41, BUN was 42.? Lactic acid was 2, patient's chest x-ray showed increased opacities in the mid to lower lung torres bilaterally concerning for pneumonia or pneumonitis.? Patient was given IV antibiotics, he was transferred to the ICU in guarded condition, he will be seen by critical care, I contacted nephrology about his admission. Hospital course: He was admitted to the ICU with acute hypoxic respiratory failure secondary to aspiration pneumonia and started on IV Merrem and vancomycin. Nephrology was consulted for dialysis but he did have a fistula that clotted off and required alternate access. Had also been hypotensive and required Levophed. Due to his clotted graft he did have vascular surgery consult and they felt he would most likely need Duexis. He had a dialysis catheter placed 04/29 so that he could resume dialysis and had his dialysis on 05/01/2022. In the interim he was found to have MRSA bacteremia and diagnosed with septic shock and had broad-spectrum antibiotics and was adequately volume resuscitated, infectious disease consulted. He remained hypotensive, tachycardic, poor mentation and on a Levophed drip in the ICU. He did have echocardiogram that demonstrated severely dilated right ventricle with severe global right ventricular systolic dysfunction and stage I diastolic dysfunction within normal left ventricular systolic function. On 05/01 he had remained on Vanco and Merrem and was on Airvo and remained on Levophed. Dialysis was administered but he was Net even. At 310 after he was turned in bed for hygiene purposes he went into pulseless V. tach. See code note. Did achieve ROSC and was on amnio, Levophed, vaso-, fluids. Next of kin listed in chart, sister, other support member arrived and patient had already been made DNR over the phone. Patient with time of 6:06 AM 05/02/2022 Assessment & Plan Assessment/Plan (1) MRSA bacteremia: (2) End stage renal failure on dialysis: (3) Acute respiratory failure with hypoxia: PLAN: Plan #Acute hypoxic respiratory failure due to aspiration pneumonia #Septic shock due to aspiration pneumonia #ESRD: #Acute metabolic encephalopathy
--- NOTE | 2022-05-02 07:17 | NURSING ---
This RN noted in monitor that it appeared patient's heart rhythm had changed. This RN went in to assess patient at bedside and no heart sounds were auscultated, no pulse felt, pupils fixed and dilated. Second RN came into bedside to verify. Time of 06. Family is at bedside.
--- NOTE | 2022-05-02 08:43 | CASEMGMT ---
Social [facility] This professor of social work updated [facility] that patient this morning. Jose KAY, LUCIANO
[2022-05-02 14:56] LABS: Pathologist Review Reviewed
== END 2022-05-02 07:00 | DRG 871 ==
LOC: ED 13:05 → ICU 17:51
PROVIDERS: Internal Medicine; Internal Medicine Critical Care Medicine; Admitting Provider Internal Medicine; Emergency Provider Emergency Medicine; PCP Internal Medicine; Visit Provider Student in an Organized Health Care Education/Training Program
DX: A41.02 Sepsis due to Methicillin resistant Staphylococcus aureus (principal); J69.0 Pneumonitis due to inhalation of food and vomit; J96.01 Acute respiratory failure with hypoxia; N18.6 End stage renal disease; R65.21 Severe sepsis with septic shock; G93.41 Metabolic encephalopathy; E46 Unspecified protein-calorie malnutrition; I13.2 Hypertensive heart and chronic kidney disease with heart failure and with stage 5 chronic kidney disease, or end stage renal disease; I50.30 Unspecified diastolic (congestive) heart failure; T82.898A Other specified complication of vascular prosthetic devices, implants and grafts, initial encounter; R57.1 Hypovolemic shock; D63.1 Anemia in chronic kidney disease; Z79.4 Long term (current) use of insulin; G20 Parkinson's disease; E11.22 Type 2 diabetes mellitus with diabetic chronic kidney disease; Z99.2 Dependence on renal dialysis; E87.6 Hypokalemia; E86.0 Dehydration; E78.5 Hyperlipidemia, unspecified; I25.10 Atherosclerotic heart disease of native coronary artery without angina pectoris; D50.9 Iron deficiency anemia, unspecified; R53.81 Other malaise; R62.7 Adult failure to thrive; Z79.82 Long term (current) use of aspirin; B95.62 Methicillin resistant Staphylococcus aureus infection as the cause of diseases classified elsewhere
CPT/HCPCS: 31500; 31720; 36600; 71045; 73502; 80048; 80053; 80202; 82274; 82803; 82962; 83605; 83735; 84100; 85025; 85610; 85730; 87040; 87077; 87149; 87186; 90937; 92526; 92950; 93005; 93306; 94002; 94003; 94660; 94762; 94799; 96361; 96374; 97802; 97803; 99252; 99285; J2185; J7030; J7040; J7050; J7120; A4216; C1751; C1752; G0257; G0463; J3475; J3490